=== PATIENT | male | born 1990 | race Caucasian/White ===

== ENCOUNTER 2024-02-01 23:20 | Emergency (ER) | payer MEDICAID, SELFPAY ==
[2024-02-01 23:23] VITALS: BP 136/84; PULSE 70; O2SAT 97; BMI 31.4
[2024-02-01 23:25] VITALS: BP 123/76; PULSE 68; RESP 18; TEMP 36.6; O2SAT 96
--- NOTE | 2024-02-01 23:36 | ED.GENADULT ---
HPI - General Adult General Chief complaint: Back Pain/Injury Stated complaint: LOW BACK INTO LEG PAIN WHILE WORKING PER EMS Time Seen by Provider: 02/01/24 23:27 Source: patient Mode of arrival: ambulatory Limitations: no limitations History of Present Illness ED Provider: Dr. Gladys Gray HPI narrative: patient comes to the emergency room complaining of lower back pain that radiates towards the left leg in a shock-like sensation with certain movements. Patient states it started today for the 1st time, while he was carrying heavy boxes at work. Patient states that he did not fall, did not have any injuries. patient denies urinary / fecal incontinence /retention Also, patient states that he feels short of breath, history of asthma. Patient states that for several years, he has been using his albuterol pump 4 to 5 times a day everyday. Patient has not taking any steroids daily, does not use any other medications. Patient states that he recently just moved from [place], started a new job yesterday, does not have a primary care physician Related Data Previous Rx's ?Medication ?Instructions ?Recorded albuterol sulfate 90 mcg/actuation 2 puff inhalation Q4-6H PRN 02/01/24 aerosol inhaler shortness of breath or wheezing #8.5 grams budesonide-formoterol HFA 80 2 puff inhalation BID #10.2 grams 02/01/24 mcg-4.5 mcg/actuation aerosol inhaler cyclobenzaprine 10 mg tablet 10 mg PO TID PRN muscle spasm #10 02/01/24 tabs ketorolac 10 mg tablet 10 mg PO . b.i.d. PRN pain #10 tabs 02/01/24 prednisone 50 mg tablet 50 mg PO DAILY #4 tabs 02/01/24 Allergies Allergy/AdvReac Type Severity Reaction Status Date / Time milk [MILK] Allergy Unknown LACTOSE Unverified 02/01/24 23:37 INTOLERANT shrimp [SHRIMP] Allergy Unknown SWELLING, Unverified 02/01/24 23:37 SOB CHOCOLATE Allergy Unknown GAS/BLOATIN Uncoded 02/01/24 23:37 G Review of Systems Review of Systems: Constitutional : No Weight loss, No Fever, No Chills, No Night Sweats, No Fatigue, No Malaise ENT/Mouth : No Hearing loss, No Ear Pain, No Nasal Congestion, No Sinus Pain, No Hoarseness, No sore throat, No Rhinorrhea, No Swallowing Difficulty Eyes: No Eye Pain, No Swelling, No Redness, No Foreign Body, No Discharge, No Vision Changes Cardiovascular : No Chest Pain, No SOB, No Dyspnea on Exertion, No Orthopnea, No Edema, No Palpitations Respiratory : No Cough, No Sputum, complaining of wheezing, No Smoke Exposure, No Dyspnea Gastrointestinal : No Nausea, No Vomiting, No Diarrhea, No Constipation, No abdominal Pain, No Hematochezia, No Melena Genitourinary : no irregular bleeding, No Dysuria, No Urinary Frequency, No Hematuria, No Urinary Incontinence, No Urgency, No Flank Pain, No Urinary Flow Changes, No Hesitancy Musculoskeletal : No joint pain, No Myalgias, No Joint Swelling, complaining of pain radiating from the lower back towards the right heel in a shock-like sensation Skin : No Skin Lesions, No rash Neuro : No Weakness, No Numbness, No Paresthesias, No Loss of Consciousness, No Dizziness, No Headache Psych : No Anxiety/Panic, No Depression, No SI/HI/AH/VH, No Social Issues, Heme/Lymph: No Bruising, No Bleeding,No Lymphadenopathy Endocrine : No Polyuria, No Polydipsia, No Temperature Intolerance COUNTS INCLUDE 234 BEDS AT THE [facility] Past Medical History Medical History (Updated 02/01/24 @ 23:49 by Gladys Gray MD) Asthma Physical Exam ED Vital Signs: Vital Signs - 24 hr 02/01/24 23:25 Temperature 97.9 F Pulse Rate 68 Respiratory Rate 18 Blood Pressure 123/76 Pulse Oximetry 96 Oxygen Delivery Method Room Air BMI result Body Mass Index 31.4 Const Other: Appearance: Alert. Oriented X3. No acute distress. Eyes: Pupils equal, round and reactive to light. ENT: Pharynx normal. Neck: Normal inspection. Neck supple. No lymph nodes noted. No crepitus CVS: Normal heart rate and rhythm. Pulses normal. Normal S1 and S2 Respiratory: No respiratory distress. bilateral wheezing, fairly good air movement, oxygen saturation 96% on room air, No rales Abdomen: Soft and nontender. No rigidity. No distention. back: no Pain to palpation in the thoracic or lumbar area. Positive straight leg raise test on the right only Skin: Skin warm and dry. Normal skin color. Normal skin turgor. Extremities: No lower extremity edema. No Lacerations. No Rash Neuro: Oriented X 3. No motor deficit. No sensory deficit. Moving all extremities. No slurred speech. CN 2 through 12 grossly intact Psych: calm, cooperative, normal affect Medical Decision Making Medical Decision Making MDM Narrative: - I discussed the physical exam with the patient, patient is wheezing at this time, patient will be receiving a breathing treatment with albuterol - patient receiving IM dexamethasone and ketorolac for sciatica. Discussed with the patient that the longterm treatment for sciatica is physical therapy. Patient will go to a walk-in clinic until he sees his primary care physician. - Patient uses his pump 4 to 5 times a day, 1 times at night, symptoms are daily. Patient's seems to have moderate persistent asthma. Discussed with the patient that we will start inhaled corticosteroids twice a day in addition to albuterol. Patient will need to follow-up with his new primary care physician and possibly pulmonology. Differential Diagnosis Differential Diagnoses: The differential diagnosis associated with the presentation includes ( Sciatica, herniated disc, musculoskeletal pain. persistent asthma, intermittent asthma) Admission/Observation Consideration of admission/observation: Escalation of care including admission/observation considered ( given patient's initial presentation, observation was considered) Critical Care Time Critical Care Time Critical Care Time: Yes Total Critical Care Time: 35 Attestation: I have personally provided critical care time. Time includes review of lab data, radiology results, discussion with consultants, and monitoring for potential decompensation. Intervention performed as documented. Discharge Plan Discharge Clinical Impression: Sciatica, Asthma Patient Disposition: Home, Self-Care Instructions: Asthma (ED), Sciatica (ED), Lower Back Exercises (ED) Additional Instructions: Please follow-up with your primary care physician tomorrow. If you have any worsening or new symptoms, please return to the emergency room or call 911 Prescriptions: New ketorolac 10 mg tablet 10 mg PO . b.i.d. PRN (Reason: pain) Qty: 10 0RF Rx Instructions: maximum total duration of 5 days from all oral, intranasal, or parenteral formulations cyclobenzaprine 10 mg tablet 10 mg PO TID PRN (Reason: muscle spasm) Qty: 10 0RF Rx Instructions: do not drive or operate machinery after taking this medication albuterol sulfate 90 mcg/actuation HFA aerosol inhaler 2 puff inhalation Q4-6H PRN (Reason: shortness of breath or wheezing) Qty: 8.5 2RF budesonide-formoterol 80-4.5 mcg/actuation HFA aerosol inhaler 2 puff inhalation BID Qty: 10.2 2RF prednisone 50 mg tablet 50 mg PO DAILY Qty: 4 0RF Referrals: Nikita Cody MD [Physician] - 02/02/24 Print Language: Malagasy
[2024-02-02] MEDS: dexAMETHasone sod phosphate 4 MG/ML VIAL 6 MG IM (00:01)
[2024-02-02] MEDS: Ketorolac Tromethamine 60 MG/2 ML VIAL IM (00:01)
[2024-02-02 00:02] VITALS: PULSE 110; RESP 18; O2SAT 97
[2024-02-02] MEDS: Albuterol Sulfate 7.5 MG, Albuterol Sulfate (0.083%) 2.5 MG 10 MG INHALE (00:02)
[2024-02-02 00:28] VITALS: BP 121/55; PULSE 82; RESP 20; TEMP 36.7; O2SAT 95
[2024-02-02 00:34] VITALS: BP 121/55; PULSE 82; RESP 20; TEMP 36.7; O2SAT 95
== END 2024-02-02 00:34 | disposition home or self-care (01) ==
PROVIDERS: Emergency Provider Emergency Medicine
DX: M54.40 Lumbago with sciatica, unspecified side (principal); J45.909 Unspecified asthma, uncomplicated; Z79.899 Other long term (current) drug therapy
CPT/HCPCS: 94640; 96372; 99284; J1100; J1885

== ENCOUNTER 2024-03-25 02:10 | Emergency (ER) | payer OTHER, SELFPAY ==
--- NOTE | 2024-03-25 | ECG_ITS ---
Test Reason : DYSPNEA Blood Pressure : / mmHG Vent. Rate : 077 BPM Atrial Rate : 077 BPM P-R Int : 154 ms QRS Dur : 102 ms QT Int : 376 ms P-R-T Axes : 070 056 041 degrees QTc Int : 425 ms Normal sinus rhythm Normal ECG When compared to the previous EKG of No significant changes seen Referred By: Generic ED Physician Electronically Signed By:NORMA DECKER MD
[2024-03-25 02:20] VITALS: BP 114/79; PULSE 83; RESP 20; TEMP 36.7; O2SAT 97; BMI 30.6
[2024-03-25] MEDS: Albuterol Sulfate 5 MG, Albuterol Sulfate (0.083%) 2.5 MG 7.5 MG INHALE (02:35)
[2024-03-25 02:37] VITALS: BP 114/79; PULSE 66
[2024-03-25] MEDS: EPINEPHrine 1 MG/ML VIAL 0.3 MG SUBCUT (02:37)
[2024-03-25 02:38] VITALS: PULSE 68; RESP 22; O2SAT 98
--- NOTE | 2024-03-25 02:38 | PC.NURSE ---
pt arrived to ed pulling his work cart, using exc muscles, audible wheezing, lungs sounds tight and pt working hard, pt able to answer one word questions at best. pt brought right back to room one and provider at bedside with resp.
[2024-03-25] MEDS: Magnesium Sulfate/H2O 2 GM/50 ML PIGGYBACK IV (02:39)
[2024-03-25] MEDS: methylPREDNISolone Sod Succ 125 MG/2 ML VIAL IVPUSH (02:41)
[2024-03-25 02:48] LABS: MANUAL DIFF FLAG NO
[2024-03-25 02:50] LABS: Basophils Absolute Auto 0.1 X10*3/uL (0.0-0.2); Basophils Percent Auto 0.6 % (0-2); Eosinophils Absolute Auto 0.1 X10*3/uL (0.0-0.4); Eosinophils Percent Auto 0.8 % (0-4); Hematocrit 44.8 % (42.0-52.0); Hemoglobin 15.3 g/dl (14.0-18.0); Imm Gran Abs Auto 0.07 X10*3/uL (0.00-0.03); Imm Gran Pct Auto 0.5 % (0.0-0.4); Lymphocytes Absolute Auto 1.7 X10*3/uL (1.2-4.9); Lymphocytes Percent Auto 11.8 % (20-40); Mean Corpuscular HGB Conc 34.2 g/dl (31.0-36.0); Mean Corpuscular Hemoglobin 28.4 pg (27.0-33.0); Mean Corpuscular Volume 83.1 fL (80.0-98.0); Mean Platelet Volume 9.2 fL (9.4-12.4); Monocytes Absolute Auto 0.9 X10*3/uL (0.1-1.2); Monocytes Percent Auto 6.1 % (2-11); Neutrophils Absolute Auto 11.6 x10*3/uL (2.0-8.3); Neutrophils Percent Auto 80.2 % (45-73); Platelet Count 370 X10*3/uL (160-400); Red Blood Count 5.39 X10*6/uL (4.60-5.80); White Blood Count 14.5 X10*3/uL (4.8-10.8)
[2024-03-25] MEDS: Albuterol Sulfate 2.5 MG, Albuterol/Iprat 2.5/0.5MG 3 ML 3 ML INHALE (02:53)
[2024-03-25 02:55] VITALS: PULSE 68; RESP 18; O2SAT 97
[2024-03-25 03:01] LABS: Anion Gap 16 (12-20); Blood Urea Nitrogen 18 mg/dL (9-16); Calcium 9.9 mg/dL (8.4-10.2); Carbon Dioxide 23 mmol/L (22-29); Chloride 106 mmol/L (96-108); Creatinine Clr Calc Pharmacy 120.5; Estimated Glomerular Filt Rate > 60; Glucose Random 90 mg/dL (60-115); Potassium 4.1 mmol/L (3.3-5.1); Sodium 141 mmol/L (135-145)
--- OUTSIDE RECORDS SUMMARY | 2024-03-25 03:04 | XMS_ITS | Continuity of Care Document ---
Author Organization [facility] ter Address [address] [place] [id number]- Care Team Providers Care Teaching Fellow Name Role Phone Ken SANCHEZ, Sergio Centeno Primary Care Physician Encounter [facility] Date(s): 08/22/19 - 08/23/[address] [address]- [facility] Encounter Diagnosis Asthma exacerbation(Final) - 08/22/19 Influenza B(Final) - 08/22/19 Discharge Disposition: A-D/C Home Attending Physician: Krysta Evans MD Admitting Physician: Tommy SILVA, Alvarez Castle Referring Physician: Not on Staff, Referring MD Allergies, Adverse Reactions, Alerts Substance Reaction Severity Status shellfish Active Peanuts Active Medications Aerochamber w/Mask (Large) See Instructions, # 2 units, Maintenance, For use with albuterol and flovent, 05/16/10 14:58:38 Start Date: 05/16/10 Status: Ordered albuterol 0.083% inhalation solution 3 mL = 2.5 mg, Neb, Every 4 hours, PRN Wheezing/Shortness of Breath, # 540 mL, 0 Refills, Maintenance, 08/23/19 14:00:00 EST, Inhalation Solution, [facility], 165, cm, 08/23/19 13:04:00EST, Height, 84.5, kg, 08/22/19 19:10:00 EST, Dry W... Start Date: 08/23/19 Status: Ordered albuterol CFC free 90 mcg/inh inhalation aerosol 2, puffs, Inhalation, Every 4 hours, PRN, # 1 each, Refills 1, Tot. Refills 1, Maintenance, 08/23/19 13:59:00 EST, Aerosol, Route to Pharmacy Electronically, [id number], [facility], 165, cm, 08/23/19 13:04:00 ES... Start Date: 08/23/19 Status: Ordered Flovent HFA 110 mcg/inh inhalation aerosol 2 puffs, Inhalation, 2 times a day, # 12 Gm, 0 Refills, Maintenance, 08/23/19 13:59:00 EST, Aerosol, [facility], 165, cm, 08/23/19 13:04:00 EST, Height, 84.5, kg, 08/22/19 19:10:00 EST,Dry Weight Start Date: 08/23/19 Status: Ordered Keppra 500 mg oral tablet 1 tablet = 500 mg, By Mouth, 2 times a day, # 60 tablet, 0 Refills, Maintenance, 08/23/19 13:59:00 EST, Tablet, [facility], 165, cm, 08/23/19 13:04:00 EST, Height, 84.5, kg, 08/22/19 19:10:00 EST, Dry Weight Start Date: 08/23/19 Status: Ordered oseltamivir 75 mg oral capsule 1 capsule = 75 mg, By Mouth, 2 times a day, for 4 days, # 8 capsule, 0 Refills, Acute 08/27/19 13:59:00 EST, 08/23/19 13:59:00 EST, Capsule, [facility], 165, cm, 08/23/19 13:04:00 EST, Height, 84.5, kg, 08/22/19 19:10:00 EST, Dry Weight Start Date: 08/23/19 Stop Date: 08/27/19 Status: Ordered predniSONE 20 mg oral tablet 2 tablet = 40 mg, By Mouth, Daily, for 5 days, # 10 tablet, 0 Refills, Acute 08/28/19 13:59:00 EST,08/23/19 13:59:00 EST, Tablet, [facility], 165, cm, 08/23/19 13:04:00 EST, Height, 84.5, kg, 08/22/19 19:10:00 EST, Dry Weight Start Date: 08/23/19 Stop Date: 08/28/19 Status: Ordered Problem List Condition Effective Dates Status Health Status Inform ant Asthma(Confirmed) Active Results Radiology Reports * Exam Date Time Procedure Performing Provider Status 08/22/19 8:03 AM Chest 2 Views Frontal and Lat Bindu Dee; Qian (Verified) Notes: (Chest 2 Views Frontal and Lat) Reason For Exam: Shortness of Breath RESULT: Chest 2 Views Frontal and Lat Chest 2 Views Frontal and Lat Reason: Shortness of Breath; Clinical Question(s): Pneumonia; Special Instructions: This is a protocol film and radiologist should call any findings to the Charge Nurse; Hx of Present Illness: SOB x 1 mos. w chest tightness.; Other Objective Findings: PWD, resps even non labored. sepakign in full se ntences. COMPARISON: None. FINDINGS: LINES AND TUBES: None. LUNGS AND PLEURA: Clear lungs. Normal pulmonary vascularity. No pleural effusion. No pneumothorax. HEART, MEDIASTINUM AND FIGUEROA: Heart is normal in size. Normal mediastinal and hilar contour. BONES AND SOFT TISSUES: No acute abnormality. IMPRESSION: No acute abnormality. WSN: [id number] Dictated By: Tania Oliveros MD Dictated Date/Time: 08/22/19 9:36 am Reviewed By: Tania Oliveros MD Signed By: Tania Oliveros MD Signed Date/Time: 08/22/19 9:36 am Transcribed By: SARA Transcribed Date/Time: 08/22/19 9:35 am Vital Signs Most recent to oldest [Reference Range]: 1 2 3 Height 165 cm (08/23/19 1:04 PM) 165 cm (08/23/19 7:44 AM) 165 cm (08/23/19 4:36 AM) Weight 84.5 kg (08/22/19 7:10 PM) 83 kg (08/22/19 7:54 AM) Oxygen Saturation [94-100 %] 95 % (08/23/19 1:04 PM) 99 % (08/23/19 7:44 AM) 96 % (08/23/19 4:36 AM) Pulse Rate [55-90 bpm] 95 bpm *H* (08/23/19 1:04 PM) 60 bpm (08/23/19 7:44 AM) 72 bpm (08/23/19 4:36 AM) Body Mass Index [18.5-24.99] 31.04 *>HHI* (08/22/19 7:10 PM) Blood Pressure [90-138/55-84 mm Hg] 120/79mm Hg (08/23/19 1:04 PM) 127/81mm Hg (08/23/19 7:44 AM) 142/85mm Hg *H* (08/23/19 4:36 AM) Respiratory Rate [16-30 br/min] 18 br/min (08/23/19 1:04 PM) 17 br/min (08/23/19 8:07 AM) 18 br/min (08/23/19 7:44 AM) Temperature [96.8-100.4 DegF] 97.9 DegF (08/23/19 1:04 PM) 98 DegF (08/23/19 7:44 AM) 98.5 DegF (08/23/19 4:36 AM) Liters per Minute 4 L/min (08/22/19 3:01 PM) 10 L/min (08/22/19 7:44 AM) Mode of Delivery (Oxygen) Room air (08/23/19 1:04 PM) Room air (08/23/19 7:44 AM) Room air (08/23/19 4:36 AM) Blood pressure sites Arm, right (08/23/19 1:04 PM) Arm, left (08/23/19 7:44 AM) Arm, right (08/23/19 4:36 AM) Temperature Route Oral (08/23/19 1:04 PM) Oral (08/23/19 7:44 AM) Oral (08/23/19 4:36 AM) Dry Weight 84.5 kg (08/22/19 7:10 PM) Social History Social History Type Response Smoking Status 10 or more cigarette s (1/2 pack or more)/day in last 30 days; Other: smokes 1/2 pack a day; entered on: 08/22/19 Sex
--- NOTE | 2024-03-25 04:34 | ED_ITS ---
HPI - SOB/Dyspnea General Chief Complaint: Dyspnea Stated Complaint: asthma attack cant breath Time Seen by Provider: 03/25/24 02:28 Source: patient Mode of arrival: ambulatory Limitations: no limitations History of Present Illness ED Provider: Dr. Vuong HPI Narrative: Patient with a history of asthma presents with sudden shortness of breath and wheezing. Related Data Previous Rx's ?Medication ?Instructions ?Recorded albuterol sulfate 90 mcg/actuation 2 puff inhalation Q4-6H PRN 02/01/24 aerosol inhaler shortness of breath or wheezing #8.5 grams budesonide-formoterol HFA 80 2 puff inhalation BID #10.2 grams 02/01/24 mcg-4.5 mcg/actuation aerosol inhaler cyclobenzaprine 10 mg tablet 10 mg PO TID PRN muscle spasm #10 02/01/24 tabs ketorolac 10 mg tablet 10 mg PO . b.i.d. PRN pain #10 tabs 02/01/24 prednisone 50 mg tablet 50 mg PO DAILY #4 tabs 02/01/24 albuterol sulfate 90 mcg/actuation 2 puff inhalation Q4-6H PRN 03/01/24 aerosol inhaler (Ventolin HFA) shortness of breath or wheezing #6.7 grams albuterol sulfate 90 mcg/actuation 2 puff inhalation Q4-6H PRN 03/25/24 aerosol inhaler shortness of breath or wheezing #8.5 grams prednisone 20 mg tablet 60 mg (3 x 20 mg) PO DAILY #12 tabs 03/25/24 Allergies Allergy/AdvReac Type Severity Reaction Status Date / Time milk [MILK] Allergy Unknown LACTOSE Verified 03/25/24 02:21 INTOLERANT shrimp [SHRIMP] Allergy Unknown SWELLING, Verified 03/25/24 02:21 SOB CHOCOLATE Allergy Unknown GAS/BLOATIN Uncoded 02/01/24 23:37 G Review of Systems 2 Review of Systems: Yes all other systems are reviewed and are negative Neurologic: Denies Sensory deficit (Neuro) PMF Past Medical History Medical History Asthma Social History Social History Alcohol intake: current Alcohol intake frequency: holidays/special occasions only Smoked in Last 30 Days: Yes Use of substances other than those prescribed or required for medical reasons: Yes Substance Use Type: Marijuana Substance Use Frequency: Daily Advance Directives: No Advance Directives Information Provided: Yes Physical Exam 2 Vital Signs: Vital Signs: Last Vital Signs Temp 98.1 F 03/25/24 02:20 Pulse 68 03/25/24 02:55 Resp 18 03/25/24 02:55 BP 114/79 03/25/24 02:37 Pulse Ox 97 03/25/24 02:20 O2 Del Method Room Air 03/25/24 02:20 BMI result Body Mass Index 30.6 Const: Other: acutely short of breath in extremis Nutritional Appearance: average body habitus Orientation/consciousness: oriented to person and patient oriented x3 Limitations: no limitations HEENT: Head: Yes normal to inspection Ears: external ears normal General nose exam: Normal external nose present Mouth: Normal oral and palatal mucosa present and oropharynx normal Throat: Yes posterior oropharynx normal Eyes: General: appearance normal, both eyes and all related structures Neck: Other: supple Neck: Yes normal visual inspection Chest: Chest palpation & inspection: normal inspection of the chest Resp: Other: tight barely moving air, wheezing Cardio: Jugular venous distension: no JVD Rate: regular rate Rhythm: r egular rhythm Heart sounds: S1 normal heart sound present and S2 normal heart sound present GI: Inspection: Yes normal to inspection Palpation (GI): Soft to palpation, nontender and No hepatosplenomegaly present Auscultation: normal bowel sounds : General: Yes no CVA tenderness Back/Spine/Pelvis: Back: no CVA tenderness Skin: General skin exam: no rashes or lesions noted Neuro: General: oriented to person and patient oriented x3 Cranial nerves: Yes CN's II-XII intact bilaterally Motor exam (neuro): 5/5 motor strength present throughout Sensory Exam: No Sensory deficit (Neuro) Extrem: General: Yes normal to inspection Psych: Appearance: grossly normal Course Reevaluation(s) Reevaluation #1: I spent 40 minutes of critical care, with interventions, assessments, speaking to patient, consultants, and family. Patient needed epi, magnesium as well as nebs and solumedrol Time: 04:38 Reevaluation #2: Lungs clear talking in full sentences will dc home Time: 04:38 Medications Administered Discontinued Medications Generic Name Dose Route Start Last Admin Trade Name Freq PRN Reason Stop Dose Admin Albuterol Sulfate 5 mg/ 7.5 mg 03/25/24 02:34 03/25/24 02:35 Albuterol Sulfate 2.5 mg INHALE 03/25/24 02:35 7.5 mg ONCE ONE Administration Albuterol Sulfate 2.5 mg/ 0 mg 03/25/24 02:49 03/25/24 02:53 Albuterol/Ipratropium 3 ml INHALE 03/25/24 02:50 5 dose ONCE ONE Administration Epinephrine 0.3 mg 03/25/24 02:31 03/25/24 02:37 Epinephrine 1 Mg/Ml Vial SUBCUT 03/25/24 02:32 0.3 mg STAT STA Administration Magnesium Sulfate 2 gm in 50 mls @ 25 mls/hr 03/25/24 02:31 03/25/24 04:42 Magnesium Sulfate/H2o IV 03/25/24 04:30 Infused ONCE ONE Infusion Methylprednisolone Sodium Succinate 125 mg 03/25/24 02:31 03/25/24 02:41 Methylprednisolone Sod Succ 125 Mg/2 Ml Vial IVPUSH 03/25/24 02:32 125 mg ONCE ONE Administration Medical Decision Making Differential Diagnosis Differential Diagnoses: The differential diagnosis associated with the presentation includes (status asthmaticus, asthma exacerbation, respiratory failure) Admission/Observation Consideration of admission/observation: Escalation of care including admission/observation considered (upon arrival admission was considered) Lab Data 03/25/24 02:42 03/25/24 02:42 Labs: Lab Results 03/25/24 Range/Units 02:42 WBC 14.5 H (4.8-10.8) X10*3/uL RBC 5.39 (4.60-5.80) X10*6/uL Hgb 15.3 (14.0-18.0) g/dl Hct 44.8 (42.0-52.0) % MCV 83.1 (80.0-98.0) fL MCH 28.4 (27.0-33.0) pg MCHC 34.2 (31.0-36.0) g/dl RDW 14.0 (11.0-16.0) % Plt Count 370 (160-400) X10*3/uL MPV 9.2 L (9.4-12.4) fL Immature Gran % (Auto) 0.5 H (0.0-0.4) % Neut % (Auto) 80.2 H (45-73) % Lymph % (Auto) 11.8 L (20-40) % [place] % (Auto) 6.1 (2-11) % Eos % (Auto) 0.8 (0-4) % Baso % (Auto) 0.6 (0-2) % Lymph # (Auto) 1.7 (1.2-4.9) X10*3/uL [place] # (Auto) 0.9 (0.1-1.2) X10*3/uL Eos # (Auto) 0.1 (0.0-0.4) X10*3/uL Baso # (Auto) 0.1 (0.0-0.2) X10*3/uL Abs Immat Gran (auto) 0.07 H (0.00-0.03) X10*3/uL Absolute Neuts (auto) 11.6 H (2.0-8.3) x10*3/uL Absolute Nucleated RBC 0.000 (0.0-0.012) X10*3/uL Nucleated RBC % (auto) 0.0 (0.0-0.2) /100WBC Sodium 141 (135-145) mmol/L Potassium 4.1 (3.3-5.1) mmol/L Chloride 106 (96-108) mmol/L Carbon Dioxide 23 (22-29) mmol/L Anion Gap 16 (12-20) BUN 18 H (9-16) mg/dL Creatinine 0.85 (0.5-1.4) mg/dL Estim Creat Clear Calc 120.5 Estimated GFR > 60 Random Glucose 90 (60-115) mg/dL Calcium 9.9 (8.4-10.2) mg/dL Prescription Management I considered prescription management with: Antibiotic (no evidence of pneumonia) Chronic Conditions Patient?s care impacted by: Other (asthma) Social Determinants Patient?s care significantly limited by Social Determinants of Health including: Low income Discharge Plan Discharge Clinical Impression: Asthma with exacerbation Patient Disposition: Home, Self-Care Instructions: Asthma (ED), Wheezing (ED) Prescriptions: New prednisone 20 mg tablet 60 mg PO DAILY Qty: 12 0RF albuterol sulfate 90 mcg/actuation HFA aerosol inhaler 2 puff inhalation Q4-6H PRN (Reason: shortness of breath or wheezing) Qty: 8.5 0RF No Action ketorolac 10 mg tablet 10 mg PO . b.i.d. PRN (Reason: pain) Qty: 10 0RF Rx Instructions: maximum total duration of 5 days from all oral, intranasal, or parenteral formulations cyclobenzaprine 10 mg tablet 10 mg PO TID PRN (Reason: muscle spasm) Qty: 10 0RF Rx Instructions: do not drive or operate machinery after taking this medication albuterol sulfate 90 mcg/actuation HFA aerosol inhaler 2 puff inhalation Q4-6H PRN (Reason: shortness of breath or wheezing) Qty: 8.5 2RF budesonide-formoterol 80-4.5 mcg/actuation HFA aerosol inhaler 2 puff inhalation BID Qty: 10.2 2RF prednisone 50 mg tablet 50 mg PO DAILY Qty: 4 0RF albuterol sulfate [Ventolin HFA] 90 mcg/actuation HFA aerosol inhaler 2 puff inhalation Q4-6H PRN (Reason: shortness of breath or wheezing) Qty: 6.7 0RF Referrals: Physician,Unknown J [Primary Care Provider] - 3 days Print Language: [place] Islander
[2024-03-25 04:58] VITALS: BP 127/66; PULSE 86; RESP 20; TEMP 36.9; O2SAT 95
== END 2024-03-25 05:00 | disposition home or self-care (01) ==
PROVIDERS: Emergency Provider Emergency Medicine
DX: J45.901 Unspecified asthma with (acute) exacerbation (principal); R06.02 Shortness of breath
CPT/HCPCS: 36415; 80048; 85025; 93005; 94640; 96365; 96366; 96372; 96375; 99285; J0171; J2919; J3475

== ENCOUNTER → 2024-03-25 02:26 | Outpatient (BNV) | payer OTHER, SELFPAY | PROVIDERS: Emergency Provider Emergency Medicine; Visit Provider Internal Medicine Cardiovascular Disease | DX: R06.09 Other forms of dyspnea (principal) | CPT/HCPCS: 93010 ==

== ENCOUNTER 2024-04-03 23:37 | Emergency (ER) | payer OTHER, SELFPAY ==
--- NOTE | ~2024-04-03 | CT_ITS ---
CT head/brain wo IV con CLINICAL INFORMATION: Reason for Exam acute change in mental status, found down COMPARISON: No prior CT scan available for comparison. TECHNIQUE: Department standard protocol. This CT examination was performed using dose optimization techniques as appropriate, variously including the following: *Automated exposure control *Adjustment of mA and/or kV according to patient size (this includes techniques or standardized protocols for targeted exams where dose is matched to indication/reason for exam; i.e. extremities or head) *Use of iterative reconstruction technique DLP: 1494 mGy-cm FINDINGS: Exam limited by motion artifacts CEREBRAL HEMISPHERES: Subtle Subcortical low-attenuation in the right frontoparietal region may be caused by artifacts motion, cannot entirely rule out the possibility of underlying brain injury. Refer image 17 series 10, no intracranial bleed. BRAIN PARENCHYMA: Normal [place]-white matter differentiation. SUBDURAL SPACE: No bleed. BASAL GANGLIA AND PINEAL GLAND: Unremarkable VENTRICLES: Symmetric and normal in size. CEREBELLUM AND BRAINSTEM: No space-occupying mass, hemorrhage or acute infarct. CEREBELLOPONTINE ANGLES: No lesion found. ORBITS: No intraorbital mass. VESSELS: Unremarkable SKULL BASE: Unremarkable INCLUDED SINUSES AT SKULL BASE: Clear SKULL AND SKIN: No fracture or bone lesion found. CT/CT head/brain wo IV con IMPRESSION: 1. Exam limited by motion artifacts. 2. Subtle Subcortical low-attenuation in the right frontoparietal region may be caused by motion artifacts, however cannot entirely rule out the possibility of underlying brain injury. If patient remain symptomatic consider correlation with follow-up MRI or CT scan in 24 hours.. 3. No intracranial bleed.
[2024-04-03 23:45] VITALS: BP 119/78; PULSE 77; RESP 20; O2SAT 95; BMI 29.0
[2024-04-03 23:50] VITALS: PULSE 77; RESP 16; O2SAT 95
[2024-04-03] MEDS: LORazepam 2 MG/ML VIAL IM (23:50)
--- NOTE | 2024-04-03 23:50 | PC.NURSE ---
Pt arrives via EMS in soft restraints. Pt is violent, combative, uncooperative, yelling profanities, and attempting to hit staff members. Pt Medicated as per MAR and tolerated well. Unable to obtain full set of vitals as pt self removes equipment. Monitoring is ongoing.
[2024-04-04] VITALS (20 sets, daily range): BP systolic 105–153; BP diastolic 64–98; PULSE 61–94; RESP 12–20; TEMP 37.2; O2SAT 92–99
--- NOTE | 2024-04-04 00:05 | PC.NURSE ---
Pt is now sleeping. Placed on monitor and changed over by security. No apparent distress noted. Monitoring is ongoing.
--- NOTE | 2024-04-04 02:06 | ED_ITS ---
HPI - Alcohol General Chief Complaint: ETOH/Substance Use Stated Complaint: etoh, combative Time Seen by Provider: 04/03/24 23:47 Source: EMS Mode of arrival: EMS Limitations: altered mental status History of Present Illness ED Provider: eusebia ANDRADE narrative: Patient was brought by EMS been found intoxicated outside was very combative when EMS approached him no signs of injury no seizures smell of alcohol patient is very intoxicated and not cooperative Related Data Previous Rx's ?Medication ?Instructions ?Recorded albuterol sulfate 90 mcg/actuation 2 puff inhalation Q4-6H PRN 02/01/24 aerosol inhaler shortness of breath or wheezing #8.5 grams budesonide-formoterol HFA 80 2 puff inhalation BID #10.2 grams 02/01/24 mcg-4.5 mcg/actuation aerosol inhaler cyclobenzaprine 10 mg tablet 10 mg PO TID PRN muscle spasm #10 02/01/24 tabs ketorolac 10 mg tablet 10 mg PO . b.i.d. PRN pain #10 tabs 02/01/24 prednisone 50 mg tablet 50 mg PO DAILY #4 tabs 02/01/24 albuterol sulfate 90 mcg/actuation 2 puff inhalation Q4-6H PRN 03/01/24 aerosol inhaler (Ventolin HFA) shortness of breath or wheezing #6.7 grams albuterol sulfate 90 mcg/actuation 2 puff inhalation Q4-6H PRN 03/25/24 aerosol inhaler shortness of breath or wheezing #8.5 grams prednisone 20 mg tablet 60 mg (3 x 20 mg) PO DAILY #12 tabs 03/25/24 Allergies Allergy/AdvReac Type Severity Reaction Status Date / Time milk [MILK] Allergy Unknown LACTOSE Verified 04/03/24 23:47 INTOLERANT shrimp [SHRIMP] Allergy Unknown SWELLING, Verified 04/03/24 23:47 SOB CHOCOLATE Allergy Unknown GAS/BLOATIN Uncoded 04/03/24 23:47 G Review of Systems 2 Review of Systems: Yes Unobtainable due to mental status PMFSH Past Medical History Medical History Asthma Social History Social History Alcohol intake: current Alcohol intake frequency: holidays/special occasions only Substance Use Type: Marijuana Advance Directives: No Advance Directives Information Provided: No Do you have a plan to hurt others: No Plan Physical Exam ED Vital Signs: Vital Signs - 24 hr 04/03/24 23:45 04/03/24 23:50 04/04/24 00:05 Temperature Pulse Rate 77 77 68 Respiratory Rate 20 16 15 Blood Pressure 119/78 Pulse Oximetry 95 95 94 Oxygen Delivery Method Room Air Room Air 04/04/24 00:20 04/04/24 00:35 04/04/24 00:50 Temperature Pulse Rate 66 68 61 Respiratory Rate 15 17 16 Blood Pressure Pulse Oximetry 96 92 94 Oxygen Delivery Method Room Air Room Air Room Air 04/04/24 01:05 04/04/24 01:20 04/04/24 02:10 Temperature Pulse Rate 67 67 74 Respiratory Rate 17 17 20 Blood Pressure 108/73 114/78 130/91 H Pulse Oximetry 95 95 97 Oxygen Delivery Method Room Air Room Air Room Air 04/04/24 02:25 04/04/24 02:40 04/04/24 02:55 Temperature Pulse Rate 92 94 82 Respiratory Rate 19 17 16 Blood Pressure 137/98 H 126/89 Pulse Oximetry 96 97 Oxygen Delivery Method Room Air Room Air 04/04/24 03:10 04/04/24 03:25 04/04/24 03:41 Temperature Pulse Rate 83 81 73 Respiratory Rate 13 16 14 Blood Pressure 137/84 123/74 113/74 Pulse Oximetry 98 96 99 Oxygen Delivery Method Room Air Room Air Room Air 04/04/24 06:40 Temperature 99.0 F Pulse Rate 81 Respiratory Rate 12 Blood Pressure 119/91 H Pulse Oximetry 96 Oxygen Delivery Method Room Air BMI result Body Mass Index 29.0 Appearance: Agitated Eyes: PERRL ENT: Pharynx normal. Oral Mucosa moist atraumatic normocephalic Neck: Normal inspection. Neck supple. CVS: Normal heart rate and rhythm. Pulses normal. Respiratory: No respiratory distress. Equal air entry bilateral, no wheezing/rales/rhonchi Abdomen: Soft and nontender. Bowel sounds are present, no mass palpable, no CVA tenderness Skin: Skin warm and dry. Normal skin color. Normal skin turgor. Extremities: No lower extremity edema. No calf tenderness Neuro: Intoxicated combative Medical Decision Making Medical Decision Making MDM Narrative: Patient alcoholic intoxication with cocaine abuse very combative on arrival requiring multiple doses of benzos was given also Haldol and ketamine patient is still agitated will give IV worse patient restrained to avoid injury to himself patient is signed out to Dr. Lopez pending disposition Differential Diagnosis Differential Diagnoses: The differential diagnosis associated with the presentation includes Metabolic encephalopathy/cocaine induced psychosis/alcohol intoxication Admission/Observation Consideration of admission/observation: Escalation of care including admission/observation considered Lab Data [facility] Lab Attestation statement: I reviewed the patient's lab results. 04/04/24 02:38 04/04/24 02:38 Labs: Lab Results 04/04/24 04/04/24 04/04/24 Range/Units 02:38 02:38 04:10 WBC 13.7 H (4.8-10.8) X10*3/uL RBC 5.53 (4.60-5.80) X10*6/uL Hgb 15.4 (14.0-18.0) g/dl Hct 46.8 (42.0-52.0) % MCV 84.6 (80.0-98.0) fL MCH 27.8 (27.0-33.0) pg MCHC 32.9 (31.0-36.0) g/dl RDW 14.1 (11.0-16.0) % Plt Count 356 (160-400) X10*3/uL MPV 8.9 L (9.4-12.4) fL Immature Gran % (Auto) 0.7 H (0.0-0.4) % Neut % (Auto) 84.9 H (45-73) % Lymph % (Auto) 10.8 L (20-40) % [place] % (Auto) 3.1 (2-11) % Eos % (Auto) 0.1 (0-4) % Baso % (Auto) 0.4 (0-2) % Lymph # (Auto) 1.5 (1.2-4.9) X10*3/uL [place] # (Auto) 0.4 (0.1-1.2) X10*3/uL Eos # (Auto) 0.0 (0.0-0.4) X10*3/uL Baso # (Auto) 0.1 (0.0-0.2) X10*3/uL Abs Immat Gran (auto) 0.10 H (0.00-0.03) X10*3/uL Absolute Neuts (auto) 11.6 H (2.0-8.3) x10*3/uL Absolute Nucleated RBC 0.000 (0.0-0.012) X10*3/uL Nucleated RBC % (auto) 0.0 (0.0-0.2) /100WBC Sodium 145 (135-145) mmol/L Potassium 4.0 (3.3-5.1) mmol/L Chloride 110 H (96-108) mmol/L Carbon Dioxide 21 L (22-29) mmol/L Anion Gap 18 (12-20) BUN 12 (9-16) mg/dL Creatinine 0.76 (0.5-1.4) mg/dL Estim Creat Clear Calc 140.5 Estimated GFR > 60 Random Glucose 105 (60-115) mg/dL Calcium 10.0 (8.4-10.2) mg/dL Magnesium 2.4 (1.6-2.6) mg/dL Total Bilirubin 0.2 (0.0-1.0) mg/dL AST 21 (5-37) U/L ALT 23 (0-40) U/L Alkaline Phosphatase 81 (39-117) U/L Total Creatine Kinase 237 H Cancelled (38-174) U/L Total Protein 8.1 H (6.5-8.0) g/dL Albumin 5.0 (3.5-5.0) g/dL Urine Opiates Screen Not Detected (Not Detect) Ur Buprenorphine Scrn Not Detected (Not Detect) ng/mL Ur Oxycodone Screen Not Detected (Not Detect) ng/mL Urine Methadone Screen Not Detected (Not Detect) ng/mL Urine Fentanyl Screen Not Detected (Not Detect) Ur Barbiturates Screen Not Detected (Not Detect) Ur Phencyclidine Scrn Not Detected (Not Detect) Ur Amphetamines Screen Not Detected (Not Detect) U Benzodiazepines Scrn Not Detected (Not Detect) Urine Cocaine Screen POSITIVE H (Not Detect) U Marijuana (THC) Screen POSITIVE H (Not Detect) Ethyl Alcohol 266 mg/dL External Record Review External record reviewed: Inpatient record Medications Administered Discontinued Medications Generic Name Dose Route Start Last Admin Trade Name Freq PRN Reason Stop Dose Admin Haloperidol Lactate 2 mg 04/04/24 06:45 04/04/24 06:50 Haloperidol Lactate 5 Mg/Ml Vial IVPUSH 04/04/24 06:46 2 mg STAT STA Administration Sodium Chloride 1,000 mls @ 999 mls/hr 04/04/24 02:07 04/04/24 04:25 Ns IV 04/04/24 03:07 Infused .Q1H1M ONE Infusion Ketamine HCl 200 mg 04/04/24 02:20 04/04/24 02:28 Ketamine Hcl 500 Mg/5 Ml Vial IM 04/04/24 02:21 200 mg ONCE ONE Administration Ketamine HCl 200 mg 04/04/24 04:18 04/04/24 04:28 Ketamine Hcl 500 Mg/5 Ml Vial IM 04/04/24 04:19 200 mg ONCE ONE Administration Lorazepam 2 mg 04/03/24 23:48 04/03/24 23:50 Lorazepam 2 Mg/Ml Vial IM 04/03/24 23:49 2 mg ONCE ONE Administration Lorazepam 2 mg 04/04/24 02:07 04/04/24 02:10 Lorazepam 2 Mg/Ml Vial IM 04/04/24 02:08 2 mg ONCE ONE Administration Lorazepam 2 mg 04/04/24 06:44 04/04/24 06:50 Lorazepam 2 Mg/Ml Vial IVPUSH 04/04/24 06:45 2 mg ONCE ONE Administration Midazolam HCl 2 mg 04/04/24 07:07 04/04/24 07:17 Midazolam Hcl/Pf 2 Mg/2 Ml Vial IVPUSH 04/04/24 07:08 2 mg ONCE ONE Administration Critical Care Time Critical Care Time Critical Care Time: Yes Total Critical Care Time: 75 Attestation: The patient was critically ill with a high probability of imminent or life threatening deterioration. I spent greater than 80???minutes of discontinuous time evaluating the patient,delivering critical care at the bedside, discussing and evaluating pertinent data with consultants. Critical care time does not include time spent performing separately billable procedures or teaching. Total time spent performing critical care wa75 ???minutes. Discharge Plan Discharge Clinical Impression: Alcoholic intoxication, Cocaine-induced psychotic disorder, Acute metabolic encephalopathy Patient Disposition: Still a Patient Prescriptions: No Action prednisone 20 mg tablet 60 mg PO DAILY Qty: 12 0RF albuterol sulfate 90 mcg/actuation HFA aerosol inhaler 2 puff inhalation Q4-6H PRN (Reason: shortness of breath or wheezing) Qty: 8.5 0RF ketorolac 10 mg tablet 10 mg PO . b.i.d. PRN (Reason: pain) Qty: 10 0RF Rx Instructions: maximum total duration of 5 days from all oral, intranasal, or parenteral formulations cyclobenzaprine 10 mg tablet 10 mg PO TID PRN (Reason: muscle spasm) Qty: 10 0RF Rx Instructions: do not drive or operate machinery after taking this medication albuterol sulfate 90 mcg/actuation HFA aerosol inhaler 2 puff inhalation Q4-6H PRN (Reason: shortness of breath or wheezing) Qty: 8.5 2RF budesonide-formoterol 80-4.5 mcg/actuation HFA aerosol inhaler 2 puff inhalation BID Qty: 10.2 2RF prednisone 50 mg tablet 50 mg PO DAILY Qty: 4 0RF albuterol sulfate [Ventolin HFA] 90 mcg/actuation HFA aerosol inhaler 2 puff inhalation Q4-6H PRN (Reason: shortness of breath or wheezing) Qty: 6.7 0RF Print Language: Italian
[2024-04-04] MEDS: LORazepam 2 MG/ML VIAL IM (02:10)
--- NOTE | 2024-04-04 02:10 | PC.NURSE ---
Pt was sleeping and awaken yelling, aggressive, combative, attempting to leave, aggressive towards staff, and yelling profanity. Uncooperative and unredirectable. Medically restraint as ordered. Monitoring is ongoing.
--- NOTE | 2024-04-04 02:20 | PC.NURSE ---
Pt continues with aggressive/combative behavior, attempting to grab staff members. Pt physically restraint in all extremities for safety.
[2024-04-04] MEDS: Ketamine HCl 500 MG/5 ML VIAL 200 MG IM ×2 (02:28→04:28)
--- NOTE | 2024-04-04 02:40 | PC.NURSE ---
Pt continues to be physcially restrained. Exhibiting aggressive/combative behavior. Attempting to bite restraint straps. Restraints continue at this time. Monitoring is ongoing.
[2024-04-04 02:43] LABS: MANUAL DIFF FLAG NO
[2024-04-04 02:44] LABS: Basophils Absolute Auto 0.1 X10*3/uL (0.0-0.2); Basophils Percent Auto 0.4 % (0-2); Eosinophils Percent Auto 0.1 % (0-4); Hematocrit 46.8 % (42.0-52.0); Hemoglobin 15.4 g/dl (14.0-18.0); Imm Gran Pct Auto 0.7 % (0.0-0.4); Lymphocytes Absolute Auto 1.5 X10*3/uL (1.2-4.9); Lymphocytes Percent Auto 10.8 % (20-40); Mean Corpuscular HGB Conc 32.9 g/dl (31.0-36.0); Mean Corpuscular Hemoglobin 27.8 pg (27.0-33.0); Mean Corpuscular Volume 84.6 fL (80.0-98.0); Mean Platelet Volume 8.9 fL (9.4-12.4); Monocytes Absolute Auto 0.4 X10*3/uL (0.1-1.2); Monocytes Percent Auto 3.1 % (2-11); Neutrophils Absolute Auto 11.6 x10*3/uL (2.0-8.3); Neutrophils Percent Auto 84.9 % (45-73); Platelet Count 356 X10*3/uL (160-400); Red Blood Count 5.53 X10*6/uL (4.60-5.80); Red Cell Distribution Width 14.1 % (11.0-16.0); White Blood Count 13.7 X10*3/uL (4.8-10.8)
[2024-04-04] MEDS: 0.9 % Sodium Chloride 1,000 ML 999 ML IV (02:44)
--- NOTE | 2024-04-04 02:45 | PC.NURSE ---
Pt noted to be sleeping. No safety concerns at this time. All restraints removed. +CMS, radial pulses present. No injuries noted. Monitoring is ongoing.
--- NOTE | 2024-04-04 02:55 | PC.NURSE ---
Pt continues sleeping. No apparent distress noted. Monitoring is ongoing.
[2024-04-04 03:02] LABS: Alanine Aminotransferase 23 U/L (0-40); Alkaline Phosphatase 81 U/L (39-117); Anion Gap 18 (12-20); Aspartate Amino Transferase 21 U/L (5-37); Bilirubin Total 0.2 mg/dL (0.0-1.0); Blood Urea Nitrogen 12 mg/dL (9-16); Carbon Dioxide 21 mmol/L (22-29); Chloride 110 mmol/L (96-108); Creatinine Clr Calc Pharmacy 140.5; Estimated Glomerular Filt Rate > 60; Ethanol 266 mg/dL; Glucose Random 105 mg/dL (60-115); Magnesium 2.4 mg/dL (1.6-2.6); Sodium 145 mmol/L (135-145); Total Protein 8.1 g/dL (6.5-8.0)
[2024-04-04 04:26] LABS: Amphetamine Screen Urine Not Detected (Not Detect); Barbiturates, Urine Not Detected (Not Detect); Benzodiazepines Screen Urine Not Detected (Not Detect); Buprenorphine Scr Not Detected (Not Detect); Cannabinoid Screen Urine POSITIVE (Not Detect); Cocaine Screen Urine POSITIVE (Not Detect); Fentanyl, urine Not Detected (Not Detect); Methadone Screen, Urine Not Detected (Not Detect); Opiate Screen Urine Not Detected (Not Detect); Oxycodone Screen Urine Not Detected (Not Detect); Phencyclidine Screen Urine Not Detected (Not Detect)
--- NOTE | 2024-04-04 06:35 | PC.NURSE ---
Unable to obtain vitals as pt is agitated and combative.
[2024-04-04] MEDS: LORazepam 2 MG/ML VIAL IVPUSH (06:50)
[2024-04-04] MEDS: Haloperidol Lactate 5 MG/ML VIAL 2 MG IVPUSH (06:50)
[2024-04-04] MEDS: Midazolam HCl/PF 2 MG/2 ML VIAL IVPUSH (07:17)
--- NOTE | 2024-04-04 08:26 | PC.NURSE ---
Incontinence care provided. Restraints to MEAGHAN feet removed. Pt. sleeping and cooperative at this time.
--- NOTE | 2024-04-04 08:40 | PC.NURSE ---
Pt. out of all restraints at this time. Remains calm, sleeping. VSS
[2024-04-04] MEDS: 0.9 % Sodium Chloride 1,000 ML 125 ML IVCONT (08:46)
== END 2024-04-04 14:36 | disposition home or self-care (01) ==
PROVIDERS: Emergency Provider Internal Medicine
DX: F10.220 Alcohol dependence with intoxication, uncomplicated (principal); Y90.8 Blood alcohol level of 240 mg/100 ml or more; F14.159 Cocaine abuse with cocaine-induced psychotic disorder, unspecified; G93.40 Encephalopathy, unspecified; R45.1 Restlessness and agitation; J45.909 Unspecified asthma, uncomplicated; Z79.899 Other long term (current) drug therapy
CPT/HCPCS: 36415; 70450; 80053; 80307; 82550; 83735; 85025; 96361; 96372; 96374; 96375; 99285; J1630; J2060; J2250

== ENCOUNTER 2024-07-22 04:35 | Emergency (ER) | payer MEDICAID, SELFPAY ==
--- NOTE | ~2024-07-22 | XR_ITS ---
EXAMINATION: XR CHEST CLINICAL INFORMATION: chest pain COMPARISON: September 09, 2016. TECHNIQUE: Frontal view of the chest was obtained. FINDINGS: No significant abnormality is noted involving the heart, lungs, mediastinum, bony thorax or soft tissues. XR/XR chest 1V IMPRESSION: Unremarkable examination. Electronically signed by: Sanchez Contreras MD 07/22/2024 06:45 AM [facility]
--- NOTE | 2024-07-22 04:41 | ECG_ITS ---
Test Reason : SOB Blood Pressure : / mmHG Vent. Rate : 090 BPM Atrial Rate : 090 BPM P-R Int : 164 ms QRS Dur : 106 ms QT Int : 362 ms P-R-T Axes : 076 069 041 degrees QTc Int : 442 ms Normal sinus rhythm Normal ECG When compared with ECG of 25-MAR-2024 02:26, No significant change was found Referred By: Generic ED Physician Electronically Signed By:Buzz Mccormick
[2024-07-22 04:48] VITALS: BMI 30.7
--- NOTE | 2024-07-22 04:49 | ED_ITS ---
HPI - SOB/Dyspnea General Chief Complaint: Dyspnea Stated Complaint: Asmtha attack Time Seen by Provider: 07/22/24 04:49 Source: patient Mode of arrival: ambulatory Limitations: no limitations History of Present Illness ED Provider: HPI Narrative: Patient's history of asthma been feeling short of breath since yesterday getting worse today use nebulizer at home without much relief no fever no chills coughing mostly dry Related Data Previous Rx's ?Medication ?Instructions ?Recorded albuterol sulfate 90 mcg/actuation 2 puff inhalation Q4-6H PRN 02/01/24 aerosol inhaler shortness of breath or wheezing #8.5 grams budesonide-formoterol HFA 80 2 puff inhalation BID #10.2 grams 02/01/24 mcg-4.5 mcg/actuation aerosol inhaler cyclobenzaprine 10 mg tablet 10 mg PO TID PRN muscle spasm #10 02/01/24 tabs ketorolac 10 mg tablet 10 mg PO . b.i.d. PRN pain #10 tabs 02/01/24 prednisone 50 mg tablet 50 mg PO DAILY #4 tabs 02/01/24 albuterol sulfate 90 mcg/actuation 2 puff inhalation Q4-6H PRN 03/01/24 aerosol inhaler (Ventolin HFA) shortness of breath or wheezing #6.7 grams albuterol sulfate 90 mcg/actuation 2 puff inhalation Q4-6H PRN 03/25/24 aerosol inhaler shortness of breath or wheezing #8.5 grams prednisone 20 mg tablet 60 mg (3 x 20 mg) PO DAILY #12 tabs 03/25/24 albuterol sulfate 90 mcg/actuation 2 puff inhalation Q6H PRN 07/22/24 aerosol inhaler shortness of breath or wheezing #8.5 grams cefuroxime axetil 500 mg tablet 500 mg PO BID 7 days #14 tabs 07/22/24 prednisone 20 mg tablet 40 mg (2 x 20 mg) PO DAILY #10 tabs 07/22/24 Allergies Allergy/AdvReac Type Severity Reaction Status Date / Time milk [MILK] Allergy Unknown LACTOSE Verified 07/22/24 04:49 INTOLERANT shrimp [SHRIMP] Allergy Unknown SWELLING, Verified 07/22/24 04:49 SOB CHOCOLATE Allergy Unknown GAS/BLOATIN Uncoded 07/22/24 04:49 G Review of Systems 2 Review of Systems: Yes all other systems are reviewed and are negative [facility] Past Medical History Medical History Asthma Social History Social History Alcohol intake: current Alcohol intake frequency: holidays/special occasions only Smoked in Last 30 Days: Yes Use of substances other than those prescribed or required for medical reasons: No Substance Use Type: Marijuana Advance Directives: No Advance Directives Information Provided: Yes Do you have a plan to hurt others: No Plan Physical Exam 2 Vital Signs: Vital Signs: Last Vital Signs Temp 97.9 F 07/22/24 07:10 Pulse 77 07/22/24 07:10 Resp 20 07/22/24 07:10 BP 0/0 L 07/22/24 07:10 Pulse Ox 98 07/22/24 07:10 O2 Del Method Room Air 07/22/24 05:42 BMI result Body Mass Index 30.7 Appearance: Alert. Oriented X3. No acute distress. Eyes: No pallor or icterus ENT: Pharynx slight erythema Oral Mucosa moist Neck: Normal inspection. Neck supple. CVS: Normal heart rate and rhythm. Pulses normal. Respiratory: No respiratory distress. Equal air entry bilateral, bilateral wheeze no crackles Abdomen: Soft and nontender. Bowel sounds are present, no mass palpable, no CVA tenderness Skin: Skin warm and dry. Normal skin color. Normal skin turgor. Extremities: No lower extremity edema. No calf tenderness Neuro: Oriented X 3. No motor deficit. No sensory deficit.No cerebellar signs , cranial nerves II-XII intact Medications Administered Discontinued Medications Generic Name Dose Route Start Last Admin Trade Name Freq PRN Reason Stop Dose Admin Albuterol Sulfate 2 puff 07/22/24 06:36 07/22/24 06:51 Albuterol Sulfate 90 Mcg 8 Gm Inhaler INHALE 07/22/24 06:37 2 puff ONCE ONE Administration Cefuroxime Axetil 500 mg 07/22/24 06:36 07/22/24 07:07 Cefuroxime Axetil 500 Mg Tablet PO 07/22/24 06:37 500 mg ONCE ONE Administration Albuterol Sulfate 5 mg/ 0 mg 07/22/24 04:51 07/22/24 05:01 Albuterol/Ipratropium 3 ml INHALE 07/22/24 04:52 7.5 each ONCE ONE Administration Diphenhydramine HCl 50 mg 07/22/24 05:29 07/22/24 05:49 Diphenhydramine Hcl 50 Mg/Ml Vial IVPUSH 07/22/24 05:30 50 mg ONCE ONE Administration Magnesium Sulfate 2 gm in 50 mls @ 150 mls/hr 07/22/24 04:51 07/22/24 05:47 Magnesium Sulfate/H2o IV 07/22/24 05:10 Infused ONCE ONE Infusion Methylprednisolone Sodium Succinate 125 mg 07/22/24 04:51 07/22/24 05:18 Methylprednisolone Sod Succ 125 Mg/2 Ml Vial IVPUSH 07/22/24 04:52 125 mg ONCE ONE Administration Medical Decision Making Medical Decision Making [facility] Narrative: Patient with asthma exacerbation improved after nebulizing treatment magnesium and prednisone much better will discharge patient home Lab Data [facility] Lab Attestation statement: I reviewed the patient's lab results. 07/22/24 04:50 07/22/24 04:50 Labs: Lab Results 07/22/24 07/22/24 07/22/24 Range/Units 04:50 04:52 04:54 WBC 9.3 (4.8-10.8) X10*3/uL RBC 4.98 (4.60-5.80) X10*6/uL Hgb 13.9 L (14.0-18.0) g/dl Hct 41.8 L (42.0-52.0) % MCV 83.9 (80.0-98.0) fL MCH 27.9 (27.0-33.0) pg MCHC 33.3 (31.0-36.0) g/dl RDW 13.1 (11.0-16.0) % Plt Count 337 (160-400) X10*3/uL MPV 9.6 (9.4-12.4) fL Immature Gran % (Auto) 0.4 (0.0-0.4) % Neut % (Auto) 68.6 (45-73) % Lymph % (Auto) 19.3 L (20-40) % [place] % (Auto) 6.5 (2-11) % Eos % (Auto) 4.7 H (0-4) % Baso % (Auto) 0.5 (0-2) % Lymph # (Auto) 1.8 (1.2-4.9) X10*3/uL [place] # (Auto) 0.6 (0.1-1.2) X10*3/uL Eos # (Auto) 0.4 (0.0-0.4) X10*3/uL Baso # (Auto) 0.1 (0.0-0.2) X10*3/uL Abs Immat Gran (auto) 0.04 H (0.00-0.03) X10*3/uL Absolute Neuts (auto) 6.4 (2.0-8.3) x10*3/uL Absolute Nucleated RBC 0.000 (0.0-0.012) X10*3/uL Nucleated RBC % (auto) 0.0 (0.0-0.2) /100WBC VBG pH 7.47 H (7.32-7.43) VBG pCO2 31 mmHg VBG pO2 157 mmHg VBG HCO3 23 (22-26) mmol/L VBG O2 Saturation 100.0 % VBG Base Excess 0.5 mmol/L Sodium 145 (135-145) mmol/L Potassium 3.8 (3.3-5.1) mmol/L Chloride 109 H (96-108) mmol/L Carbon Dioxide 22 (22-29) mmol/L Anion Gap 18 (12-20) BUN 16 (9-16) mg/dL Creatinine 0.83 (0.5-1.4) mg/dL Estim Creat Clear Calc 127.8 Estimated GFR > 60 Random Glucose 103 (60-115) mg/dL Calcium 9.7 (8.4-10.2) mg/dL Total Bilirubin 0.2 (0.0-1.0) mg/dL AST 26 (5-37) U/L ALT 20 (0-40) U/L Alkaline Phosphatase 74 (39-117) U/L Troponin I High Sens < 2.7 (<3.5-35.0) ng/L Total Protein 7.5 (6.5-8.0) g/dL Albumin 4.5 (3.5-5.0) g/dL Influenza Type A (PCR) NEGATIVE (Negative) Influenza Type B (PCR) NEGATIVE (Negative) RSV RNA Qual (PCR) NEGATIVE (Negative) SARS-CoV-2 RNA (RT-PCR) NEGATIVE (Negative) Discharge Plan Discharge Clinical Impression: Asthma with exacerbation Patient Disposition: Home, Self-Care Instructions: Asthma (ED) Additional Instructions: Take inhaler/nebulizing treatment as advised Prednisone as prescribed Antibiotic as prescribed Follow with your PCP as needed Prescriptions: New prednisone 20 mg tablet 40 mg PO DAILY Qty: 10 0RF cefuroxime axetil 500 mg tablet 500 mg PO BID 7 Days Qty: 14 0RF albuterol sulfate 90 mcg/actuation HFA aerosol inhaler 2 puff inhalation Q6H PRN (Reason: shortness of breath or wheezing) Qty: 8.5 0RF No Action prednisone 20 mg tablet 60 mg PO DAILY Qty: 12 0RF albuterol sulfate 90 mcg/actuation HFA aerosol inhaler 2 puff inhalation Q4-6H PRN (Reason: shortness of breath or wheezing) Qty: 8.5 0RF ketorolac 10 mg tablet 10 mg PO . b.i.d. PRN (Reason: pain) Qty: 10 0RF Rx Instructions: maximum total duration of 5 days from all oral, intranasal, or parenteral formulations cyclobenzaprine 10 mg tablet 10 mg PO TID PRN (Reason: muscle spasm) Qty: 10 0RF Rx Instructions: do not drive or operate machinery after taking this medication albuterol sulfate 90 mcg/actuation HFA aerosol inhaler 2 puff inhalation Q4-6H PRN (Reason: shortness of breath or wheezing) Qty: 8.5 2RF budesonide-formoterol 80-4.5 mcg/actuation HFA aerosol inhaler 2 puff inhalation BID Qty: 10.2 2RF prednisone 50 mg tablet 50 mg PO DAILY Qty: 4 0RF albuterol sulfate [Ventolin HFA] 90 mcg/actuation HFA aerosol inhaler 2 puff inhalation Q4-6H PRN (Reason: shortness of breath or wheezing) Qty: 6.7 0RF Interventions: ED Discharge Assessment Last Done: 07/22/24 07:10 Discharge Date/Time: 07/22/24 07:11 Print Language: Ukrainian
[2024-07-22 04:50] VITALS: BP 149/89; PULSE 90; RESP 29; TEMP 36.8; O2SAT 98
[2024-07-22 04:53] LABS: Venous Blood Gas Refer to POC result
[2024-07-22 04:55] LABS: Basophils Absolute Auto 0.1 X10*3/uL (0.0-0.2); Basophils Percent Auto 0.5 % (0-2); Eosinophils Absolute Auto 0.4 X10*3/uL (0.0-0.4); Eosinophils Percent Auto 4.7 % (0-4); Hematocrit 41.8 % (42.0-52.0); Hemoglobin 13.9 g/dl (14.0-18.0); Imm Gran Abs Auto 0.04 X10*3/uL (0.00-0.03); Imm Gran Pct Auto 0.4 % (0.0-0.4); Lymphocytes Absolute Auto 1.8 X10*3/uL (1.2-4.9); Lymphocytes Percent Auto 19.3 % (20-40); MANUAL DIFF FLAG NO; Mean Corpuscular HGB Conc 33.3 g/dl (31.0-36.0); Mean Corpuscular Hemoglobin 27.9 pg (27.0-33.0); Mean Corpuscular Volume 83.9 fL (80.0-98.0); Mean Platelet Volume 9.6 fL (9.4-12.4); Monocytes Absolute Auto 0.6 X10*3/uL (0.1-1.2); Monocytes Percent Auto 6.5 % (2-11); Neutrophils Absolute Auto 6.4 x10*3/uL (2.0-8.3); Neutrophils Percent Auto 68.6 % (45-73); Platelet Count 337 X10*3/uL (160-400); Red Blood Count 4.98 X10*6/uL (4.60-5.80); Red Cell Distribution Width 13.1 % (11.0-16.0); White Blood Count 9.3 X10*3/uL (4.8-10.8)
[2024-07-22 05:00] LABS: VBG Base Excess 0.5 mmol/L; VBG HCO3 23 mmol/L (22-26); VBG pCO2 31 mmHg; VBG pH 7.47 (7.32-7.43); VBG pO2 157 mmHg
[2024-07-22] MEDS: Albuterol Sulfate 5 MG, Albuterol/Iprat 2.5/0.5MG 3 ML 3 ML INHALE (05:01)
[2024-07-22 05:02] VITALS: PULSE 81; RESP 20; O2SAT 96
[2024-07-22 05:10] LABS: Alanine Aminotransferase 20 U/L (0-40); Albumin Level 4.5 g/dL (3.5-5.0); Alkaline Phosphatase 74 U/L (39-117); Anion Gap 18 (12-20); Aspartate Amino Transferase 26 U/L (5-37); Bilirubin Total 0.2 mg/dL (0.0-1.0); Blood Urea Nitrogen 16 mg/dL (9-16); Calcium 9.7 mg/dL (8.4-10.2); Carbon Dioxide 22 mmol/L (22-29); Chloride 109 mmol/L (96-108); Creatinine Clr Calc Pharmacy 127.8; Estimated Glomerular Filt Rate > 60; Glucose Random 103 mg/dL (60-115); Potassium 3.8 mmol/L (3.3-5.1); Sodium 145 mmol/L (135-145); Total Protein 7.5 g/dL (6.5-8.0)
[2024-07-22 05:17] LABS: Troponin-I High Sensitivity < 2.7 ng/L (<3.5-35.0)
[2024-07-22] MEDS: Magnesium Sulfate/H2O 2 GM/50 ML PIGGYBACK IV (05:18)
[2024-07-22] MEDS: methylPREDNISolone Sod Succ 125 MG/2 ML VIAL IVPUSH (05:18)
[2024-07-22 05:33] LABS: Influenza A PCR NEGATIVE (Negative); Influenza B PCR NEGATIVE (Negative); Resp Syncy Virus RNA Qual PCR NEGATIVE (Negative); SARS COV2 PCR INHOUSE NEGATIVE (Negative)
--- NOTE | 2024-07-22 05:39 | PC.NURSE ---
medicated for itching for the skin,
[2024-07-22 05:42] VITALS: BP 127/80; PULSE 85; RESP 20; TEMP 36.8; O2SAT 92
[2024-07-22] MEDS: diphenhydrAMINE HCL 50 MG/ML VIAL IVPUSH (05:49)
--- NOTE | 2024-07-22 06:16 | PC.NURSE ---
respiratory improvement.
[2024-07-22] MEDS: Albuterol Sulfate 90 MCG 8 GM INHALER 2 PUFF INHALE (06:51)
[2024-07-22 06:52] VITALS: PULSE 77; RESP 20; O2SAT 98
[2024-07-22] MEDS: cefuroxime axetiL 500 MG TABLET PO (07:07)
[2024-07-22 07:10] VITALS: BP 0/0; PULSE 77; RESP 20; TEMP 36.6; O2SAT 98
== END 2024-07-22 07:11 | disposition home or self-care (01) ==
PROVIDERS: Emergency Provider Internal Medicine
DX: J45.901 Unspecified asthma with (acute) exacerbation (principal); R06.00 Dyspnea, unspecified; R06.02 Shortness of breath; Z03.818 Encounter for observation for suspected exposure to other biological agents ruled out; Z79.899 Other long term (current) drug therapy
CPT/HCPCS: 0241U; 36415; 71045; 80053; 82803; 84484; 85025; 93005; 94640; 96365; 96375; 99285; J1200; J2919; J3475

== ENCOUNTER → 2024-07-22 04:41 | Outpatient (BNV) | payer MEDICAID, SELFPAY | PROVIDERS: Emergency Provider Internal Medicine; Visit Provider Internal Medicine Cardiovascular Disease | DX: R06.02 Shortness of breath (principal) | CPT/HCPCS: 93010 ==

== ENCOUNTER 2024-08-30 06:40 | Emergency (ER) | payer MEDICAID, SELFPAY ==
--- NOTE | ~2024-08-30 | XR_ITS ---
CLINICAL HISTORY: sob, cough 2 view chest x-ray Comparison: CR/KY/SR - XR CHEST 1V - 07/22/24 04:47 EST CR - CHEST 2 VIEWS [id number] - 09/09/16 21:45 EST Findings: No consolidation or effusion. Heart size is normal. No acute fracture. IMPRESSION: 1. No acute findings. This document has been electronically signed by: Willow Adams MD on 08/30/2024 06:57:28
[2024-08-30 06:41] VITALS: BP 118/77; PULSE 68; RESP 20; TEMP 36.6; O2SAT 96; BMI 32.4
[2024-08-30 06:58] VITALS: BP 118/76; PULSE 67; RESP 18; TEMP 36.4; O2SAT 96
--- NOTE | 2024-08-30 07:00 | PC.NURSE ---
a&ox4. vss and up to date. pt presents to the ED w/ asthma exacerbation x 1 day. pt reports increased dent and nonproductive cough w/ associated generalized chest pain w/ deep inspiration and cough. audible wheezing noted. hx asthma. pt reports not using inhalers x 1 week as he no longer has a PCP and ran out of medication. pt refused to be changed over into hospital attire as well as being placed on the monitoring coordinator. pt also refused SARS swab to be obtained. pr requesting breathing tx via RT. provider notified/aware. pt seems to be in no respiratory distress. 96% on RA. respirations even/slightly labored. pt positioned upright to promote patent airway. plan of care ongoing. call marie placed within reach.
--- NOTE | 2024-08-30 07:08 | ED_ITS ---
HPI - URI/Sore Throat General Chief Complaint: Upper Respiratory Symptoms Stated Complaint: asthma attack, coughing and wheezing Time Seen by Provider: 08/30/24 06:54 Source: patient, RN notes reviewed and old records reviewed Mode of arrival: ambulatory History of Present Illness ED Provider: Sharon Becker PA-C HPI Narrative: 34-year-old male with a past medical history of asthma, presenting to ED complaining of productive cough, SOB, chest tightness, wheezing, and asthma exacerbation since yesterday. States ran out of his albuterol inhaler yesterday, and currently does not have PCP. Denies fever, chills, travel, sick contacts, pedal edema, history of clots Related Data Previous Rx's ?Medication ?Instructions ?Recorded albuterol sulfate 90 mcg/actuation 2 puff inhalation Q4-6H PRN 02/01/24 aerosol inhaler shortness of breath or wheezing #8.5 grams budesonide-formoterol HFA 80 2 puff inhalation BID #10.2 grams 02/01/24 mcg-4.5 mcg/actuation aerosol inhaler cyclobenzaprine 10 mg tablet 10 mg PO TID PRN muscle spasm #10 02/01/24 tabs ketorolac 10 mg tablet 10 mg PO . b.i.d. PRN pain #10 tabs 02/01/24 prednisone 50 mg tablet 50 mg PO DAILY #4 tabs 02/01/24 albuterol sulfate 90 mcg/actuation 2 puff inhalation Q4-6H PRN 03/01/24 aerosol inhaler (Ventolin HFA) shortness of breath or wheezing #6.7 grams albuterol sulfate 90 mcg/actuation 2 puff inhalation Q4-6H PRN 03/25/24 aerosol inhaler shortness of breath or wheezing #8.5 grams prednisone 20 mg tablet 60 mg (3 x 20 mg) PO DAILY #12 tabs 03/25/24 albuterol sulfate 90 mcg/actuation 2 puff inhalation Q6H PRN 07/22/24 aerosol inhaler shortness of breath or wheezing #8.5 grams cefuroxime axetil 500 mg tablet 500 mg PO BID 7 days #14 tabs 07/22/24 prednisone 20 mg tablet 40 mg (2 x 20 mg) PO DAILY #10 tabs 07/22/24 albuterol sulfate 2.5 mg/0.5 mL 5 mg inhalation Q4H PRN shortness 08/30/24 solution for nebulization of breath or wheezing #30 ea albuterol sulfate 90 mcg/actuation 2 puff inhalation Q4-6H PRN 08/30/24 aerosol inhaler shortness of breath or wheezing #6.7 grams prednisone 20 mg tablet 40 mg (2 x 20 mg) PO DAILY 5 days 08/30/24 #10 tabs Allergies Allergy/AdvReac Type Severity Reaction Status Date / Time milk [MILK] Allergy Unknown LACTOSE Verified 08/30/24 06:42 INTOLERANT shrimp [SHRIMP] Allergy Unknown SWELLING, Verified 08/30/24 06:42 SOB CHOCOLATE Allergy Unknown GAS/BLOATIN Uncoded 07/22/24 04:49 G Review of Systems Review of Systems: Yes all other systems are reviewed and are negative Constitutional: Constitutional: Reports as per [facility] Past Medical History Attestation statement: The following information was validated with the patient. Source: old records reviewed Medical History Asthma Social History Social History Alcohol intake: current Alcohol intake frequency: holidays/special occasions only Substance Use Type: Marijuana Advance Directives: No Advance Directives Information Provided: No Do you have a plan to hurt others: No Plan Physical Exam Vital Signs: Vital Signs: Last Vital Signs Temp 97.6 F 08/30/24 06:58 Pulse 67 08/30/24 07:16 Resp 22 H 08/30/24 07:16 BP 118/76 08/30/24 06:58 Pulse Ox 96 08/30/24 06:58 O2 Del Method Room Air 08/30/24 06:58 BMI result Body Mass Index 32.4 Const: General: cooperative, healthy appearing and no acute distress Orientation/consciousness: patient oriented x3 Limitations: no limitations HEENT: Head: Yes normal to inspection and Yes atraumatic Ears: hearing grossly normal bilaterally General nose exam: Normal external nose present Face and sinus: Yes normal facial exam Eyes: General: appearance normal, both eyes and all related structures EOM: EOMs intact bilaterally Neck: Neck: Yes normal visual inspection and Yes no meningeal signs Resp: Effort & Inspection: no respiratory distress Auscultation: wheezes expiratory wheezes and throughout Cardio: Rate: regular rate Heart sounds: S1 normal heart sound present and S2 normal heart sound present Skin: Rashes: no rashes Wounds: no wounds Neuro: General: patient oriented x3, tone normal and no meningeal signs Cranial nerves: Yes CN's II-XII intact bilaterally Gait exam (Neuro): Normal gait present Extrem: General: Yes normal to inspection and Yes no pedal edema Course Course Course Narrative: XR chest 2V IMPRESSION: 1. No acute findings -812--on re-evaluation patient reports symptomatic improvement. Lungs with good air movement, slight end expiratory residual wheeze noted. Recommended additional DuoNeb however patient declined and would like to be discharged with albuterol inhaler to go to work. Results discussed with patient including worrisome signs and symptoms and strict return precautions, and when to return to the emergency department. They verbalized understanding and feel safe for discharge at this time. Medications Administered Discontinued Medications Generic Name Dose Route Start Last Admin Trade Name Freq PRN Reason Stop Dose Admin Albuterol Sulfate 2.5 mg/ 0 mg 08/30/24 07:12 08/30/24 07:16 Albuterol/Ipratropium 3 ml INHALE 08/30/24 07:13 1 dose ONCE ONE Administration Prednisone 40 mg 08/30/24 07:07 08/30/24 07:16 Prednisone 20 Mg Tablet PO 08/30/24 07:08 40 mg ONCE ONE Administration Medical Decision Making Medical Decision Making MDM Narrative: 34-year-old male with a past medical history of asthma, presenting to ED complaining of productive cough, SOB, chest tightness, wheezing, and asthma exacerbation since yesterday. On exam vital signs stable, NAD, nontoxic appea ring, audible wheeze appreciated, diffuse expiratory wheeze noted. Concern for asthma exacerbation vs viral illness vs pneumonia vs bronchitis. Lower suspicion for ACS/PE or DVT at this time Plan: EKG, CXR, viral testing, ED bronch protocol, IV Solu-Medrol. > patient refusing IV or IM labs/medications. States he only wants nebulized treatment, oral prednisone, and to be discharged to go to work. Please refer to course for remaining clinical decision making, interpretation of labs/imaging results, and discussions with consultants and/or family members. Differential Diagnosis Differential Diagnoses: The differential diagnosis associated with the presentation includes As above Admission/Observation Consideration of admission/observation: Escalation of care including admission/observation considered Independent Interpretation I performed an independent interpretation of an: Plain X-Ray Radiology Impression Discussion of test interpretation with radiology: I have reviewed the radiologist's reading. External Record Review External record reviewed: Inpatient record, Office record, Outpatient record, Pr ior outpatient labs, Prior outpatient radiology, Primary care record and Outside ED record Tests considered The following testing was considered but not selected: As above Prescription Management I considered prescription management with: Pain Medication and Antibiotic Chronic Conditions Patient?s care impacted by: Other (Asthma) Social Determinants Patient?s care significantly limited by Social Determinants of Health including: Other Social Determinant of Health Discharge Plan Discharge Clinical Impression: Asthma exacerbation Patient Disposition: Home, Self-Care Instructions: Asthma (DC) Additional Instructions: Your x-ray does not show pneumonia You need to see a greaser helper and establish care with a primary care doctor Continue to use your nebulizer and inhalers at home In addition take prednisone If her symptoms persist or worsen you have constant worsening chest pain, shortness of breath, fever return to the ED Prescriptions: New prednisone 20 mg tablet 40 mg PO DAILY 5 Days Qty: 10 0RF albuterol sulfate 90 mcg/actuation HFA aerosol inhaler 2 puff inhalation Q4-6H PRN (Reason: shortness of breath or wheezing) Qty: 6.7 0RF albuterol sulfate 2.5 mg/0.5 mL solution for nebulization 5 mg inhalation Q4H PRN (Reason: shortness of breath or wheezing) Qty: 30 0RF No Action prednisone 20 mg tablet 60 mg PO DAILY Qty: 12 0RF albuterol sulfate 90 mcg/actuation HFA aerosol inhaler 2 puff inhalation Q4-6H PRN (Reason: shortness of breath or wheezing) Qty: 8.5 0RF prednisone 20 mg tablet 40 mg PO DAILY Qty: 10 0RF cefuroxime axetil 500 mg tablet 500 mg PO BID 7 Days Qty: 14 0RF albuterol sulfate 90 mcg/actuation HFA aerosol inhaler 2 puff inhalation Q6H PRN (Reason: shortness of breath or wheezing) Qty: 8.5 0RF ketorolac 10 mg tablet 10 mg PO . b.i.d. PRN (Reason: pain) Qty: 10 0RF Rx Instructions: maximum total duration of 5 days from all oral, intranasal, or parenteral formulations cyclobenzaprine 10 mg tablet 10 mg PO TID PRN (Reason: muscle spasm) Qty: 10 0RF Rx Instructions: do not drive or operate machinery after taking this medication albuterol sulfate 90 mcg/actuation HFA aerosol inhaler 2 puff inhalation Q4-6H PRN (Reason: shortness of breath or wheezing) Qty: 8.5 2RF budesonide-formoterol 80-4.5 mcg/actuation HFA aerosol inhaler 2 puff inhalation BID Qty: 10.2 2RF prednisone 50 mg tablet 50 mg PO DAILY Qty: 4 0RF albuterol sulfate [Ventolin HFA] 90 mcg/actuation HFA aerosol inhaler 2 puff inhalation Q4-6H PRN (Reason: shortness of breath or wheezing) Qty: 6.7 0RF Referrals: [facility] [place], [place] Primary Care, Judith [Provider Group] [facility] [place] [place] Primary Care,Ignacia [Provider Group] [facility] [place] [place] Pulmonology Services [Provider Group] Print Language: Hungarian
[2024-08-30 07:16] VITALS: PULSE 67; RESP 22; O2SAT 96
[2024-08-30] MEDS: Albuterol Sulfate 2.5 MG, Albuterol/Iprat 2.5/0.5MG 3 ML 3 ML INHALE (07:16)
[2024-08-30] MEDS: predniSONE 20 MG TABLET 40 MG PO (07:16)
--- NOTE | 2024-08-30 07:17 | PC.NURSE ---
medication administered per provider order. pt receiving breathing tx via RT at this time. effectiveness pending.
[2024-08-30] MEDS: Albuterol Sulfate 90 MCG 8 GM INHALER 4 PUFF INHALE (08:26)
[2024-08-30 08:27] VITALS: BP 120/66; PULSE 66; RESP 18; TEMP 36.4; O2SAT 98
== END 2024-08-30 08:28 | disposition home or self-care (01) ==
PROVIDERS: Emergency Provider Emergency Medicine
DX: J45.901 Unspecified asthma with (acute) exacerbation (principal); R06.02 Shortness of breath
CPT/HCPCS: 71046; 94640; 99283; 99284

== ENCOUNTER → 2024-08-30 06:50 | Outpatient (BNV) | payer MEDICAID, SELFPAY | PROVIDERS: Visit Provider Radiology Diagnostic Radiology | DX: R06.02 Shortness of breath (principal); R05.9 Cough, unspecified | CPT/HCPCS: 71046 ==

== ENCOUNTER 2024-11-07 01:24 | Emergency (ER) | payer MEDICAID, SELFPAY ==
--- NOTE | 2024-11-07 | ECG_ITS ---
Test Reason : asthma Blood Pressure : */* mmHG Vent. Rate : 60 BPM Atrial Rate : 60 BPM P-R Int : 176 ms QRS Dur : 114 ms QT Int : 410 ms P-R-T Axes : 50 55 29 degrees QTcB Int : 410 ms Normal sinus rhythm Normal ECG When compared with ECG of 22-Jul-2024 04:41, Vent. rate has decreased by 30 bpm Referred By: Generic ED Physician Electronically Signed By: NORMA DECKER MD
--- NOTE | ~2024-11-07 | XR_ITS ---
CLINICAL HISTORY: shortness of breath, cough wheezing CHEST X-RAY FRONTAL AND LATERAL VIEWS COMPARISON: 08/30/2024. FINDINGS: Frontal and lateral views of the chest were performed. The cardiac size and mediastinal silhouette are within normal limits. The lungs are clear. There are no acute infiltrates or pleural effusions. There is no pneumothorax. IMPRESSION: 1. No acute disease. This document has been electronically signed by: Kev Rico M.D. on 11/07/2024 03:39:19
[2024-11-07 01:27] VITALS: BP 138/96; PULSE 68; O2SAT 98
[2024-11-07 01:31] VITALS: BP 118/93; PULSE 69; RESP 20; TEMP 36.8; O2SAT 97; BMI 32.1
[2024-11-07 02:02] LABS: Hematocrit 40.7 % (42.0-52.0); Hemoglobin 13.7 g/dl (14.0-18.0); Mean Corpuscular HGB Conc 33.7 g/dl (31.0-36.0); Mean Corpuscular Hemoglobin 28.1 pg (27.0-33.0); Mean Corpuscular Volume 83.6 fL (80.0-98.0); Mean Platelet Volume 8.9 fL (9.4-12.4); Platelet Count 329 X10*3/uL (160-400); Red Blood Count 4.87 X10*6/uL (4.60-5.80); White Blood Count 9.2 X10*3/uL (4.8-10.8)
[2024-11-07 02:32] LABS: Alanine Aminotransferase 41 U/L (0-40); Albumin Level 4.2 g/dL (3.5-5.0); Anion Gap 10 (12-20); Aspartate Amino Transferase 24 U/L (5-37); Bilirubin Total 0.3 mg/dL (0.0-1.0); Blood Urea Nitrogen 16 mg/dL (9-16); Calcium 8.7 mg/dL (8.4-10.2); Carbon Dioxide 24 mmol/L (22-29); Chloride 112 mmol/L (96-108); Creatinine Clr Calc Pharmacy 158.9; Estimated Glomerular Filt Rate > 60; Glucose Random 125 mg/dL (60-115); Magnesium 1.9 mg/dL (1.6-2.6); Potassium 3.3 mmol/L (3.3-5.1); Sodium 143 mmol/L (135-145); Total Protein 7.2 g/dL (6.5-8.0)
[2024-11-07 02:45] LABS: Alkaline Phosphatase 67 U/L (39-117)
[2024-11-07] MEDS: Albuterol Sulfate 2.5 MG, Albuterol/Iprat 2.5/0.5MG 3 ML 3 ML INHALE (04:01)
[2024-11-07 04:04] VITALS: PULSE 59; RESP 24; O2SAT 100
--- NOTE | 2024-11-07 04:54 | ED.ASTHMA ---
HPI - Asthma General Chief Complaint: Asthma Stated Complaint: SOB Time Seen by Provider: 11/07/24 03:58 Source: patient Mode of arrival: ambulatory Limitations: no limitations History of Present Illness ED Provider: HPI Narrative: Patient's history of asthma ran out of his inhaler and nebulizer medication about a week ago since then been having increased shortness a breath and wheezing no fever no chills patient does have frequent asthma attacks Related Data Previous Rx's ?Medication ?Instructions ?Recorded albuterol sulfate 90 mcg/actuation 2 puff inhalation Q4-6H PRN 02/01/24 aerosol inhaler shortness of breath or wheezing #8.5 grams budesonide-formoterol HFA 80 2 puff inhalation BID #10.2 grams 02/01/24 mcg-4.5 mcg/actuation aerosol inhaler cyclobenzaprine 10 mg tablet 10 mg PO TID PRN muscle spasm #10 02/01/24 tabs ketorolac 10 mg tablet 10 mg PO . b.i.d. PRN pain #10 tabs 02/01/24 prednisone 50 mg tablet 50 mg PO DAILY #4 tabs 02/01/24 albuterol sulfate 90 mcg/actuation 2 puff inhalation Q4-6H PRN 03/01/24 aerosol inhaler (Ventolin HFA) shortness of breath or wheezing #6.7 grams albuterol sulfate 90 mcg/actuation 2 puff inhalation Q4-6H PRN 03/25/24 aerosol inhaler shortness of breath or wheezing #8.5 grams prednisone 20 mg tablet 60 mg (3 x 20 mg) PO DAILY #12 tabs 03/25/24 albuterol sulfate 90 mcg/actuation 2 puff inhalation Q6H PRN 07/22/24 aerosol inhaler shortness of breath or wheezing #8.5 grams cefuroxime axetil 500 mg tablet 500 mg PO BID 7 days #14 tabs 07/22/24 prednisone 20 mg tablet 40 mg (2 x 20 mg) PO DAILY #10 tabs 07/22/24 albuterol sulfate 2.5 mg/0.5 mL 5 mg inhalation Q4H PRN shortness 08/30/24 solution for nebulization of breath or wheezing #30 ea albuterol sulfate 90 mcg/actuation 2 puff inhalation Q4-6H PRN 08/30/24 aerosol inhaler shortness of breath or wheezing #6.7 grams prednisone 20 mg tablet 40 mg (2 x 20 mg) PO DAILY 5 days 08/30/24 #10 tabs albuterol sulfate 2.5 mg/3 mL 2.5 mg (3 mL) inhalation Q4-6H PRN 11/07/24 (0.083 %) solution for nebulization shortness of breath or wheezing #90 mL albuterol sulfate 90 mcg/actuation 2 puff inhalation Q6H PRN 11/07/24 aerosol inhaler shortness of breath or wheezing #8.5 grams montelukast 10 mg tablet 10 mg PO BEDTIME #90 tabs 11/07/24 (Singulair) prednisone 20 mg tablet 40 mg (2 x 20 mg) PO DAILY #10 tabs 11/07/24 white petrolatum 44 % topical 1 ea topical BID #228 grams 11/07/24 ointment (DermaPhor) Allergies Allergy/AdvReac Type Severity Reaction Status Date / Time milk [MILK] Allergy Unknown LACTOSE Verified 11/07/24 01:35 INTOLERANT shrimp [SHRIMP] Allergy Unknown SWELLING, Verified 11/07/24 01:35 SOB CHOCOLATE Allergy Unknown GAS/BLOATIN Uncoded 11/07/24 01:35 G Review of Systems Review of Systems: Yes all other systems are reviewed and are negative [facility] Past Medical History Medical History Asthma Social History Social History Alcohol intake: current Alcohol intake frequency: holidays/special occasions only Substance Use Type: Marijuana Advance Directives: Yes Advance Directives Information Provided: Yes Advance Directives on File: No Physical Exam Vital Signs: Vital Signs: Last Vital Signs Temp 97.2 F 11/07/24 05:09 Pulse 60 11/07/24 05:09 Resp 16 11/07/24 05:09 BP 130/93 H 11/07/24 05:09 Pulse Ox 97 11/07/24 05:09 O2 Del Method Room Air 11/07/24 05:09 BMI result Body Mass Index 32.1 Appearance: Alert. Oriented X3. No acute distress. Eyes: No pallor or icterus ENT: Pharynx normal. Oral Mucosa moist Neck: Normal inspection. Neck supple. CVS: Normal heart rate and rhythm. Pulses normal. Respiratory: No respiratory distress. Equal air entry bilateral, bilateral wheezing Abdomen: Soft and nontender. Bowel sounds are present, no mass palpable, no CVA tenderness Skin: Skin warm and dry. Normal skin color. Normal skin turgor. Extremities: No lower extremity edema. No calf tenderness Neuro: Oriented X 3. Medications Administered Discontinued Medications Generic Name Dose Route Start Last Admin Trade Name Andrew PRN Reason Stop Dose Admin Albuterol Sulfate 2 puff 11/07/24 04:54 11/07/24 05:07 Albuterol Sulfate 90 Mcg 8 Gm Inhaler INHALE 11/07/24 04:55 2 puff ONCE ONE Administration Albuterol Sulfate 2.5 mg/ 0 mg 11/07/24 03:58 11/07/24 04:01 Albuterol/Ipratropium 3 ml INHALE 11/07/24 03:59 1 dose ONCE ONE Administration Prednisone 60 mg 11/07/24 03:58 11/07/24 05:07 Prednisone 20 Mg Tablet PO 11/07/24 03:59 60 mg ONCE ONE Administration Medical Decision Making Medical Decision Making [facility] Narrative: Patient's asthmatic improved after nebulizing treatment will discharge patient home on nebulizer, steroids Lab Data [facility] Lab Attestation statement: I reviewed the patient's lab results. 11/07/24 01:57 11/07/24 01:57 Labs: Lab Results 11/07/24 Range/Units 01:57 WBC 9.2 (4.8-10.8) X10*3/uL RBC 4.87 (4.60-5.80) X10*6/uL Hgb 13.7 L (14.0-18.0) g/dl Hct 40.7 L (42.0-52.0) % MCV 83.6 (80.0-98.0) fL MCH 28.1 (27.0-33.0) pg MCHC 33.7 (31.0-36.0) g/dl RDW 14.0 (11.0-16.0) % Plt Count 329 (160-400) X10*3/uL MPV 8.9 L (9.4-12.4) fL Absolute Nucleated RBC 0.000 (0.0-0.012) X10*3/uL Nucleated RBC % (auto) 0.0 (0.0-0.2) /100WBC Sodium 143 (135-145) mmol/L Potassium 3.3 (3.3-5.1) mmol/L Chloride 112 H (96-108) mmol/L Carbon Dioxide 24 (22-29) mmol/L Anion Gap 10 L (12-20) BUN 16 (9-16) mg/dL Creatinine 0.66 (0.5-1.4) mg/dL Estim Creat Clear Calc 158.9 Estimated GFR > 60 Random Glucose 125 H (60-115) mg/dL Calcium 8.7 D (8.4-10.2) mg/dL Magnesium 1.9 (1.6-2.6) mg/dL Total Bilirubin 0.3 (0.0-1.0) mg/dL AST 24 (5-37) U/L ALT 41 H (0-40) U/L Alkaline Phosphatase 67 (39-117) U/L Total Protein 7.2 (6.5-8.0) g/dL Albumin 4.2 (3.5-5.0) g/dL Independent Interpretation I performed an independent interpretation of an: Plain X-Ray Radiology Impression Discussion of test interpretation with radiology: I have reviewed the radiologist's reading. Radiologist Impression: NAD Discharge Plan Discharge Clinical Impression: Asthma with acute exacerbation Patient Disposition: Home, Self-Care Instructions: Asthma (ED) Additional Instructions: Rest at home Take albuterol inhaler/nebulizing treatment every 4 hours as needed Prednisone as prescribed Follow with the PCP if not better Prescriptions: New albuterol sulfate 2.5 mg /3 mL (0.083 %) solution for nebulization 2.5 mg inhalation Q4-6H PRN (Reason: shortness of breath or wheezing) Qty: 90 6RF prednisone 20 mg tablet 40 mg PO DAILY Qty: 10 0RF albuterol sulfate 90 mcg/actuation HFA aerosol inhaler 2 puff inhalation Q6H PRN (Reason: shortness of breath or wheezing) Qty: 8.5 6RF montelukast [Singulair] 10 mg tablet 10 mg PO BEDTIME Qty: 90 3RF DermaPhor 44 % ointment 1 ea topical BID Qty: 228 3RF No Action prednisone 20 mg tablet 60 mg PO DAILY Qty: 12 0RF albuterol sulfate 90 mcg/actuation HFA aerosol inhaler 2 puff inhalation Q4-6H PRN (Reason: shortness of breath or wheezing) Qty: 8.5 0RF prednisone 20 mg tablet 40 mg PO DAILY Qty: 10 0RF cefuroxime axetil 500 mg tablet 500 mg PO BID 7 Days Qty: 14 0RF albuterol sulfate 90 mcg/actuation HFA aerosol inhaler 2 puff inhalation Q6H PRN (Reason: shortness of breath or wheezing) Qty: 8.5 0RF prednisone 20 mg tablet 40 mg PO DAILY 5 Days Qty: 10 0RF albuterol sulfate 90 mcg/actuation HFA aerosol inhaler 2 puff inhalation Q4-6H PRN (Reason: shortness of breath or wheezing) Qty: 6.7 0RF albuterol sulfate 2.5 mg/0.5 mL solution for nebulization 5 mg inhalation Q4H PRN (Reason: shortness of breath or wheezing) Qty: 30 0RF ketorolac 10 mg tablet 10 mg PO . b.i.d. PRN (Reason: pain) Qty: 10 0RF Rx Instructions: maximum total duration of 5 days from all oral, intranasal, or parenteral formulations cyclobenzaprine 10 mg tablet 10 mg PO TID PRN (Reason: muscle spasm) Qty: 10 0RF Rx Instructions: do not drive or operate machinery after taking this medication albuterol sulfate 90 mcg/actuation HFA aerosol inhaler 2 puff inhalation Q4-6H PRN (Reason: shortness of breath or wheezing) Qty: 8.5 2RF budesonide-formoterol 80-4.5 mcg/actuation HFA aerosol inhaler 2 puff inhalation BID Qty: 10.2 2RF prednisone 50 mg tablet 50 mg PO DAILY Qty: 4 0RF albuterol sulfate [Ventolin HFA] 90 mcg/actuation HFA aerosol inhaler 2 puff inhalation Q4-6H PRN (Reason: shortness of breath or wheezing) Qty: 6.7 0RF Interventions: ED Discharge Assessment Last Done: 11/07/24 05:09 Discharge Date/Time: 11/07/24 05:10 Print Language: Chinese
[2024-11-07] MEDS: Albuterol Sulfate 90 MCG 8 GM INHALER 2 PUFF INHALE (05:07)
[2024-11-07] MEDS: predniSONE 20 MG TABLET 60 MG PO (05:07)
[2024-11-07 05:09] VITALS: BP 130/93; PULSE 60; RESP 16; TEMP 36.2; O2SAT 97
== END 2024-11-07 05:10 | disposition home or self-care (01) ==
PROVIDERS: Emergency Provider Internal Medicine
DX: J45.901 Unspecified asthma with (acute) exacerbation (principal); R05.9 Cough, unspecified
CPT/HCPCS: 36415; 71046; 80053; 83735; 85027; 93005; 94640; 99284

== ENCOUNTER → 2024-11-07 01:47 | Outpatient (BNV) | payer MEDICAID, SELFPAY | PROVIDERS: Emergency Provider Internal Medicine; Visit Provider Internal Medicine Cardiovascular Disease | DX: R06.02 Shortness of breath (principal) | CPT/HCPCS: 93010 ==

== ENCOUNTER → 2024-11-07 02:00 | Outpatient (BNV) | payer MEDICAID, SELFPAY | PROVIDERS: Emergency Provider Internal Medicine; Visit Provider Radiology Diagnostic Radiology | DX: R06.02 Shortness of breath (principal); R05.9 Cough, unspecified; R06.2 Wheezing | CPT/HCPCS: 71046 ==

== ENCOUNTER 2024-11-28 08:41 | Emergency (ER) | payer MEDICAID, SELFPAY ==
[2024-11-28 08:46] VITALS: BP 132/72; BP 175/65; PULSE 72; RESP 16; TEMP 36.5; O2SAT 95; O2SAT 98; BMI 32.4
--- OUTSIDE RECORDS SUMMARY | 2024-11-28 09:05 | XMS_ITS | Clinical Summary ---
Author Organization [employer] Address [address] [place] [address] Care Team Providers Care Collections Manager Name Role Phone Unavailable Primary Care Provider Unavailabl e Allergies No known active allergies Medications cyclobenzaprine (Flexeril) 10 MG tabletIndication s:Acute bilateral low back pain without sciatica Take 1 tablet (10 mg) by mouth 3 times daily for 10 days. 30 tablet 04/09/2024 Active Encounters Date Type Department Care Team Description 10/29/2024 Population Health Risk Score [facility] ([facility]) Department [address] [place] [id number] Provider, Population Health Generic from Last 3 Months Social History Tobacco Use Types Packs/Day Years Used Date Smoking Tobacco: Every Day Cigarettes Smokeless Tobacco: Never Tobacco Cessation:Ready to Q uit: Not Asked; Counseling Given: Not Answered Alcohol Use Standard Drinks/Week Comments Yes 0 (1 standard drink = 0.6 oz pur e alcohol) Sex and Gender Information Value Date Recorded Sex Assigned at Male 04/09/2024 4:03 PM EDT Legal Sex Male 4:01 PM EDT Gender Identity Male 04/09/2024 4:03 PM EDT Sexual Orientation Straight 04/09/2024 4: 03 PM EDT Last Filed Vital Signs Vital Sign Reading Time Taken Comments Blood Pressure 135/86 04/09/2024 4:11 PM EDT Pulse 77 04/09/2024 4:11 PM EDT Temperature 37.1 ??C (98.7 ??F) 04/09/2024 4:11 PM ED T Respiratory Rate 17 04/09/2024 4:11 PM EDT Oxygen Saturation 96% 04/09/2024 4:11 PM EDT Inhaled Oxygen Concentration - - Weight 84.4 kg (186 lb) 04/09/2024 4:11 PM EDT Height - - Body Mass Index - - Plan of Treatment Health Maintenance Due Date Last Done Comments Depression Screening 1989 HIV Screening 1989 Lipid Panel 1989 SDOH Screening 1989 Alcohol/Substance Use Screening 2001 Family Planning (PISQ) 02/28/2004 Hepatitis B Vaccines (2 of 3 - 3-dose series) 04/04/2005 03/07/2005 Hepatitis C Screening 2007 Pneumococcal Vaccine: Pediatrics (0 to 5 Years) and At-Risk Patients (6 to 49) Years) (1 of 2 - PCV) 02/28/2008 HPV Vaccines (2 - Male 3-dose series) 12/28/2009 11/30/2009 COVID-19 Vaccine ( - season) 2024 Influenza Vaccine (#1) 2024 6, 09/22/2009, 07/28/2009 Tobacco Screening 04/09/2025 04/09/2024 DTaP/Tdap/Td Vaccines (9 - Td or Tdap) 09/26/2025 09/26/2015, 03/01/2013, 07/28/2009, Additional history exists Zoster Vaccines (1 of 2) 2039 RSV Patients and Patients Aged 60 years or older (1 - 1-dose 75+ series) 02/28/2064 HIB Vaccines Completed 02/10/1991 IPV Vaccines Completed 03/13/1992, 01/17, 1989, Additional history exists Hepatitis A Vaccines Aged Out No long er eligible based on patient's age to complete this topic Meningococcal Vaccine Aged Out No sabas brisa eligible based on patient's age to complete this topic RSV under 20 months Aged Out No longe r eligible based on patient's age to complete this topic Rotavirus Vaccines Aged Out No longer eligible based on patient's age to complete this topic Insurance [facility]
--- OUTSIDE RECORDS SUMMARY | 2024-11-28 09:05 | XMS_ITS | Continuity of Care Document ---
Author Organization [employer] Address [address] [place] [phone] Phone Care Team Providers Care Development Technical Lead Name Role Phone Support, Services Unavailable Unavailable Procedures Procedure Date Intraor Complt Wbitewings Comprehensive Oral Evaluation Advance Directives Directive Yes / No Effective Date File Name No Information Encounters Encounter Description Practice Location Reason(s) For Visit Diagnoses Date Provider Providers Copied on Encounter [facility], [address] [place] [address], [id number], tel:[phone] [facility] No Information Support Services. . [facility], [address] [place] [address], [id number], tel:[phone] [facility] No Information [facility]. [address] [place] [address], [id number], . tel:[phone] Family History Family Member Type Diagnosis Age At Onset No Information Payers Payer name Insurance type Covered republican ID Authoriza tion(s) No Information Social History [...]
--- NOTE | 2024-11-28 09:18 | ED_ITS ---
HPI - SOB/Dyspnea General Chief Complaint: Dyspnea Stated Complaint: SOB Time Seen by Provider: 11/28/24 09:08 Source: patient and EMS Mode of arrival: EMS Limitations: no limitations History of Present Illness ED Provider: chichi garcia np. HPI Narrative: Patient is a 34-year-old male who presents emergency department via EMS for evaluation, he received a nebulizer treatment EN route. 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 He does admit that his asthma is triggered by various environmental factors. Unfortunately, he does not have a daily ICS but rather only his albuterol inhaler which he frequently runs out of. He states that he ran out of it 2 days ago. During the initial exacerbation he had some chest tightness and shortness of breath all which has since resolved. At this time he reports feeling well enough to go home. He offers no physical complaints. Denies any recent fevers, chills, URI symptoms, dizziness, lightheadedness, lower extremity redness pain or swelling, history of VTE or malignancy. Related Data Previous Rx's ?Medication ?Instructions ?Recorded albuterol sulfate 90 mcg/actuation 2 puff inhalation Q4-6H PRN 02/01/24 aerosol inhaler shortness of breath or wheezing #8.5 grams budesonide-formoterol HFA 80 2 puff inhalation BID #10.2 grams 02/01/24 mcg-4.5 mcg/actuation aerosol inhaler cyclobenzaprine 10 mg tablet 10 mg PO TID PRN muscle spasm #10 02/01/24 tabs ketorolac 10 mg tablet 10 mg PO . b.i.d. PRN pain #10 tabs 02/01/24 prednisone 50 mg tablet 50 mg PO DAILY #4 tabs 02/01/24 albuterol sulfate 90 mcg/actuation 2 puff inhalation Q4-6H PRN 03/01/24 aerosol inhaler (Ventolin HFA) shortness of breath or wheezing #6.7 grams albuterol sulfate 90 mcg/actuation 2 puff inhalation Q4-6H PRN 03/25/24 aerosol inhaler shortness of breath or wheezing #8.5 grams prednisone 20 mg tablet 60 mg (3 x 20 mg) PO DAILY #12 tabs 03/25/24 albuterol sulfate 90 mcg/actuation 2 puff inhalation Q6H PRN 07/22/24 aerosol inhaler shortness of breath or wheezing #8.5 grams cefuroxime axetil 500 mg tablet 500 mg PO BID 7 days #14 tabs 07/22/24 prednisone 20 mg tablet 40 mg (2 x 20 mg) PO DAILY #10 tabs 07/22/24 albuterol sulfate 2.5 mg/0.5 mL 5 mg inhalation Q4H PRN shortness 08/30/24 solution for nebulization of breath or wheezing #30 ea albuterol sulfate 90 mcg/actuation 2 puff inhalation Q4-6H PRN 08/30/24 aerosol inhaler shortness of breath or wheezing #6.7 grams prednisone 20 mg tablet 40 mg (2 x 20 mg) PO DAILY 5 days 08/30/24 #10 tabs albuterol sulfate 2.5 mg/3 mL 2.5 mg (3 mL) inhalation Q4-6H PRN 11/07/24 (0.083 %) solution for nebulization shortness of breath or wheezing #90 mL albuterol sulfate 90 mcg/actuation 2 puff inhalation Q6H PRN 11/07/24 aerosol inhaler shortness of breath or wheezing #8.5 grams montelukast 10 mg tablet 10 mg PO BEDTIME #90 tabs 11/07/24 (Singulair) prednisone 20 mg tablet 40 mg (2 x 20 mg) PO DAILY #10 tabs 11/07/24 white petrolatum 44 % topical 1 ea topical BID #228 grams 11/07/24 ointment (DermaPhor) albuterol sulfate 90 mcg/actuation 2 puff inhalation Q4-6H PRN 11/28/24 aerosol inhaler shortness of breath or wheezing #8.5 grams budesonide-formoterol HFA 80 2 puff inhalation BID #10.2 grams 11/28/24 mcg-4.5 mcg/actuation aerosol inhaler (Symbicort) Allergies Allergy/AdvReac Type Severity Reaction Status Date / Time milk [MILK] Allergy Unknown LACTOSE Verified 11/28/24 08:48 INTOLERANT shrimp [SHRIMP] Allergy Unknown SWELLING, Verified 11/28/24 08:48 SOB CHOCOLATE Allergy Unknown GAS/BLOATIN Uncoded 11/28/24 08:48 G Review of Systems Review of Systems: Yes all other systems are reviewed and are negative PMFSH Past Medical History Attestation statement: The following information was validated with the patient. Source: old records reviewed Medical History Asthma Social History Social History Alcohol intake: current Alcohol intake frequency: holidays/special occasions only Smoked in Last 30 Days: No Use of substances other than those prescribed or required for medical reasons: No Substance Use Type: Marijuana Advance Directives: No Advance Directives Information Provided: No Do you have a plan to hurt others: No Plan Physical Exam Vital Signs: Vital Signs: Last Vital Signs Temp 97.7 F 11/28/24 09:29 Pulse 72 11/28/24 09:29 Resp 16 11/28/24 09:29 BP 132/72 11/28/24 09:29 Pulse Ox 98 11/28/24 09:29 O2 Del Method Room Air 11/28/24 09:29 BMI result Body Mass Index 32.4 Appearance: Alert.?Oriented to person, place and time. No acute distress.?Normal affect. Eyes: Pupils equal, round and reactive to light.? ENT: Pharynx normal.?? Neck: Normal inspection.? Neck supple.?? CVS: Heart sounds normal. Normal heart rate and rhythm.? Pulses normal.?? Respiratory: No respiratory distress.? Lung sounds clear to auscultation bilaterally?? Abdomen: Soft and non-tender. Normoactive bowel sounds. Skin: Skin warm and dry.? Normal skin color.? Extremities: No lower extremity edema.? No calf ttp? Neuro: Moves all extremities spontaneously. Sensation intact bilaterally. Ambulates with normal steady gait. Medications Administered Discontinued Medications Generic Name Dose Route Start Last Admin Trade Name Freq PRN Reason Stop Dose Admin Albuterol Sulfate 2 puff 11/28/24 09:18 11/28/24 09:26 Albuterol Sulfate 90 Mcg 8 Gm Inhaler INHALE 11/28/24 09:19 2 puff ONCE ONE Administration Medical Decision Making Medical Decision Making MDM Narrative: Patient is a 44-year-old male with past medical history of asthma who presents emergency department for evaluation after an asthma exacerbation with onset at work unfortunately did not have his albuterol inhaler as per HPI. You received a DuoNeb updraft pre-hospital. He reports entire resolution of his symptoms. Currently his lung sounds are clear to the apices bilaterally, he is in no respiratory distress. No tachycardia tachypnea or hypoxia. He is requesting an albuterol inhaler in the emergency department which I feel is reasonable, I have additionally sent a prescription to his pharmacy. Given his daily usage of the albuterol inhaler, I have also sent a prescription for Symbicort so that he may take twice daily in hopes that he will decrease the frequency of his JORGE usage. We discussed the role of prednisone in acute exacerbations, he does not feel as though this is required, he otherwise has been feeling well until cleaning the [employer] station today. No rash or lesions, urticaria, or evidence of angioedema to suggest allergic reaction/anaphylaxis. No swallowing difficulties to suggest aspiration. No associated chest pain, lower extremity redness pain or swelling, history of VTE/malignancy to suggest ACS. CHF, pericardial effusion, or pulmonary embolism. No palpitations or history of known arrhythmias. No recent trauma or injury, no tracheal deviation, unlikely tension pneumothorax. No recent URI symptoms to suggest viral illness, or pneumonia. No acute bleeding or known anemia, no associated dizziness fatigue or chest pain to suggest acute anemia. Stable for discharge home at this time Differential Diagnosis Differential Diagnoses: The differential diagnosis associated with the presentation includes (See narrative above) Independent Historian Clinical information obtained from an independent historian. History obtained from or confirmed by: EMS External Record Review External record reviewed: Outpatient record Prescription Management I considered prescription management with: Other (See narrative above) Chronic Conditions Patient?s care impacted by: Other (See narrative above) Discharge Plan Discharge Clinical Impression: Asthma attack Patient Disposition: Home, Self-Care Additional Instructions: You were provided with a prescription for your albuterol inhaler which was sent to your pharmacy of choice, you were additionally given an albuterol inhaler while in the emergency department. Given the frequency that you are using your albuterol inhaler which is meant to be a ?rescue? inhaler, I have additionally sent a prescription for Symbicort to your pharmacy. This should be taken 2 puffs twice daily even if you are not having acute symptoms. This should allow you to use the albuterol inhaler at a lesser frequency. Please contact your primary care doctor to arrange for a follow-up visit. You may return to emergency department any new or worsening symptoms or concerns. Prescriptions: New budesonide-formoterol [Symbicort] 80-4.5 mcg/actuation HFA aerosol inhaler 2 puff inhalation BID Qty: 10.2 0RF albuterol sulfate 90 mcg/actuation HFA aerosol inhaler 2 puff inhalation Q4-6H PRN (Reason: shortness of breath or wheezing) Qty: 8.5 0RF No Action prednisone 20 mg tablet 60 mg PO DAILY Qty: 12 0RF albuterol sulfate 90 mcg/actuation HFA aerosol inhaler 2 puff inhalation Q4-6H PRN (Reason: shortness of breath or wheezing) Qty: 8.5 0RF prednisone 20 mg tablet 40 mg PO DAILY Qty: 10 0RF cefuroxime axetil 500 mg tablet 500 mg PO BID 7 Days Qty: 14 0RF albuterol sulfate 90 mcg/actuation HFA aerosol inhaler 2 puff inhalation Q6H PRN (Reason: shortness of breath or wheezing) Qty: 8.5 0RF prednisone 20 mg tablet 40 mg PO DAILY 5 Days Qty: 10 0RF albuterol sulfate 90 mcg/actuation HFA aerosol inhaler 2 puff inhalation Q4-6H PRN (Reason: shortness of breath or wheezing) Qty: 6.7 0RF albuterol sulfate 2.5 mg/0.5 mL solution for nebulization 5 mg inhalation Q4H PRN (Reason: shortness of breath or wheezing) Qty: 30 0RF albuterol sulfate 2.5 mg /3 mL (0.083 %) solution for nebulization 2.5 mg inhalation Q4-6H PRN (Reason: shortness of breath or wheezing) Qty: 90 6RF prednisone 20 mg tablet 40 mg PO DAILY Qty: 10 0RF albuterol sulfate 90 mcg/actuation HFA aerosol inhaler 2 puff inhalation Q6H PRN (Reason: shortness of breath or wheezing) Qty: 8.5 6RF montelukast [Singulair] 10 mg tablet 10 mg PO BEDTIME Qty: 90 3RF DermaPhor 44 % ointment 1 ea topical BID Qty: 228 3RF ketorolac 10 mg tablet 10 mg PO . b.i.d. PRN (Reason: pain) Qty: 10 0RF Rx Instructions: maximum total duration of 5 days from all oral, intranasal, or parenteral formulations cyclobenzaprine 10 mg tablet 10 mg PO TID PRN (Reason: muscle spasm) Qty: 10 0RF Rx Instructions: do not drive or operate machinery after taking this medication albuterol sulfate 90 mcg/actuation HFA aerosol inhaler 2 puff inhalation Q4-6H PRN (Reason: shortness of breath or wheezing) Qty: 8.5 2RF budesonide-formoterol 80-4.5 mcg/actuation HFA aerosol inhaler 2 puff inhalation BID Qty: 10.2 2RF prednisone 50 mg tablet 50 mg PO DAILY Qty: 4 0RF albuterol sulfate [Ventolin HFA] 90 mcg/actuation HFA aerosol inhaler 2 puff inhalation Q4-6H PRN (Reason: shortness of breath or wheezing) Qty: 6.7 0RF Referrals: [facility] [Primary Care Provider] - Interventions: ED Discharge Assessment Last Done: 11/28/24 09:29 Discharge Date/Time: 11/28/24 09:29 Print Language: Guyanese
[2024-11-28] MEDS: Albuterol Sulfate 90 MCG 8 GM INHALER 2 PUFF INHALE (09:26)
[2024-11-28 09:29] VITALS: BP 132/72; PULSE 72; RESP 16; TEMP 36.5; O2SAT 98
== END 2024-11-28 09:29 | disposition home or self-care (01) ==
PROVIDERS: Emergency Provider Emergency Medicine
DX: J45.901 Unspecified asthma with (acute) exacerbation (principal); R06.02 Shortness of breath
CPT/HCPCS: 99284

== ENCOUNTER → 2025-04-06 01:39 | Outpatient (BNV) | payer MEDICAID, SELFPAY | PROVIDERS: Visit Provider Radiology Neuroradiology | DX: J45.901 Unspecified asthma with (acute) exacerbation (principal) | CPT/HCPCS: 71046 ==

== ENCOUNTER 2025-04-06 01:42 | Emergency (ER) | payer MEDICAID, SELFPAY ==
--- NOTE | ~2025-04-06 | XR_ITS ---
CLINICAL HISTORY: asthma exa 2 view chest x-ray Comparison: Chest x-ray from 11/07/2024 Findings: No consolidation, pneumothorax, or pleural effusion. Low lung volumes with mild right basilar atelectasis and/or minimal pneumonitis. Imaged mediastinum and imaged osseous structures appear unchanged. IMPRESSION: No consolidation. This document has been electronically signed by: Pool Fuentes MD on 04/06/2025 02:48:55
[2025-04-06 01:50] VITALS: BP 135/73; PULSE 73; RESP 20; TEMP 36.5; O2SAT 96; BMI 33.3
[2025-04-06 01:56] VITALS: BP 126/79; PULSE 78; O2SAT 98
[2025-04-06 02:55] LABS: Hematocrit 40.3 % (42.0-52.0); Hemoglobin 13.5 g/dl (14.0-18.0); Imm Gran Abs Auto 0.06 X10*3/uL (0.00-0.03); Imm Gran Pct Auto 0.5 % (0.0-0.4); Lymphocytes Absolute Auto 2.4 X10*3/uL (1.2-4.9); MANUAL DIFF FLAG NO; Mean Corpuscular HGB Conc 33.5 g/dl (31.0-36.0); Mean Corpuscular Hemoglobin 28.5 pg (27.0-33.0); Mean Corpuscular Volume 85.0 fL (80.0-98.0); NRBC Abs Auto 0.000 X10*3/uL (0.0-0.012); NRBC Pct Auto 0.0 /100WBC (0.0-0.2); Platelet Count 327 X10*3/uL (160-400); Red Blood Count 4.74 X10*6/uL (4.60-5.80); White Blood Count 12.6 X10*3/uL (4.8-10.8)
[2025-04-06 03:11] LABS: Alanine Aminotransferase 58 U/L (0-40); Albumin Level 4.5 g/dL (3.5-5.0); Alkaline Phosphatase 82 U/L (39-117); Anion Gap 11 (12-20); Aspartate Amino Transferase 39 U/L (5-37); Blood Urea Nitrogen 21 mg/dL (9-16); Calcium 8.9 mg/dL (8.4-10.2); Carbon Dioxide 30 mmol/L (22-29); Chloride 106 mmol/L (96-108); Creatinine Clr Calc Pharmacy 153.2; Estimated Glomerular Filt Rate > 60; Potassium 3.3 mmol/L (3.3-5.1); Sodium 144 mmol/L (135-145); Total Protein 6.9 g/dL (6.5-8.0)
--- NOTE | 2025-04-06 03:19 | ED_ITS ---
HPI - Asthma General Chief Complaint: Asthma Stated Complaint: asthma exacerbation Time Seen by Provider: 04/06/25 03:19 Source: patient and EMS Mode of arrival: EMS Limitations: no limitations History of Present Illness ED Provider: Dr. Gwendolyn Allen HPI Narrative: 35 year old male with history of asthma and eczema presenting with dyspnea and pruritus ongoing for the last several weeks. Ran out of his inhaler and has been using a friend's. Admits his breathing feels better but his skin is extremely itchy. Feels his eczema is out of control. It has been this way for months, but he has not seen a doctor about it. No recent steriod use. Does not take immunomodulators. No assicated fever, cough, cold-type symptoms, leg swelling, known sick contacts or travel. Related Data Previous Rx's ?Medication ?Instructions ?Recorded albuterol sulfate 90 mcg/actuation 2 puff inhalation Q 4-6H PRN 02/01/24 aerosol inhaler shortness of breath or wheez ing #8.5 grams budesonide-formoterol HFA 80 2 puff inhalation BID #10 .2 grams 02/01/24 mcg-4.5 mcg/actuation aerosol inhaler cyclobenzaprine 10 mg tablet 10 mg PO TID PRN muscle s pasm #10 02/01/24 tabs ketorolac 10 mg tablet 10 mg PO . b.i.d. PRN pain # 10 tabs 02/01/24 prednisone 50 mg tablet 50 mg PO DAILY #4 tabs 01/31 albuterol sulfate 90 mcg/actuation 2 puff inhalation Q 4-6H PRN 03/01/24 aerosol inhaler (Ventolin HFA) shortness of breath or wheezing #6.7 grams albuterol sulfate 90 mcg/actuation 2 puff inhalation Q 4-6H PRN 03/25/24 aerosol inhaler shortness of breath or wheez ing #8.5 grams prednisone 20 mg tablet 60 mg (3 x 20 mg) PO DAILY # 12 tabs 03/25/24 albuterol sulfate 90 mcg/actuation 2 puff inhalation Q 6H PRN 07/22/24 aerosol inhaler shortness of breath or wheez ing #8.5 grams cefuroxime axetil 500 mg tablet 500 mg PO BID 7 days # 14 tabs 07/22/24 prednisone 20 mg tablet 40 mg (2 x 20 mg) PO DAILY # 10 tabs 07/22/24 albuterol sulfate 2.5 mg/0.5 mL 5 mg inhalation Q4H IA N shortness 08/30/24 solution for nebulization of breath or wheezing #30 ea albuterol sulfate 90 mcg/actuation 2 puff inhalation Q 4-6H PRN 08/30/24 aerosol inhaler shortness of breath or wheez ing #6.7 grams prednisone 20 mg tablet 40 mg (2 x 20 mg) PO DAILY 5 days 08/30/24 #10 tabs albuterol sulfate 2.5 mg/3 mL 2.5 mg (3 mL) inhalation Q4-6H PRN 11/07/24 (0.083 %) solution for nebulization shortness of breat h or wheezing #90 mL albuterol sulfate 90 mcg/actuation 2 puff inhalation Q 6H PRN 11/07/24 aerosol inhaler shortness of breath or wheez ing #8.5 grams montelukast 10 mg tablet 10 mg PO BEDTIME #90 tabs (Singulair) prednisone 20 mg tablet 40 mg (2 x 20 mg) PO DAILY # 10 tabs 11/07/24 white petrolatum 44 % topical 1 ea topical BID #228 gr ams 11/07/24 ointment (DermaPhor) albuterol sulfate 90 mcg/actuation 2 puff inhalation Q 4-6H PRN 11/28/24 aerosol inhaler shortness of breath or wheez ing #8.5 grams budesonide-formoterol HFA 80 2 puff inhalation BID #10 .2 grams 11/28/24 mcg-4.5 mcg/actuation aerosol inhaler (Symbicort) albuterol sulfate 90 mcg/actuation 2 inh inhalation Q4 H PRN shortness 04/06/25 breath activated powder inhaler of breath #1 ea betamethasone, augmented 0.05 % 1 appl topical BID PRN itching #50 04/06/25 topical ointment (Diprolene grams (augmented)) prednisone 50 mg tablet 50 mg PO DAILY 5 days #5 tab s 04/06/25 Allergies Allergy/AdvReac Type Severity Reaction Status Date / Time milk (MILK) Allergy Unknown LACTOSE Verified 04/06/25 01:52 INTOLERANT shrimp (SHRIMP) Allergy Unknown SWELLING, Verified 04/06/25 01:52 SOB CHOCOLATE Allergy Unknown GAS/BLOATIN Uncoded 04/06/25 01:52 G Review of Systems 2 Review of Systems: as per HPI, full review of systems performed and negative but for the above mentioned pertinent positives and negatives. [facility] Past Medical History Medical History Asthma Social History Social History Alcohol intake: current Alcohol intake frequency: holidays/special occasions only Substance Use Type: Marijuana Advance Directives: No Advance Directives Information Provided: No Physical Exam 2 Exam: Exam: GENERAL: Ill-appearing, mild respiratory distress. SKIN: Normal skin color for ethnicity, warm, dry, diffuse skin excoriations, eczematous rash, no cellulitic changes, no vesicular lesions. HEENT:? Normocephalic, atraumatic, no stridor, EOMI. NECK: Soft, supple, full ROM, midline structures nontender, no step-offs, no deformities, no lymphadenopathy. CHEST: Heart regular tachycardia, symmetric chest rise and fall. PULMONARY: Diffuse wheezes throughout, tachypnea, poor air movement bilaterally, mild respiratory distress. ABDOMINAL: Soft, nontender, quiet bowel sounds in all quadrants. : Deferred. MUSCULOSKELETAL: Normal tone, full range of motion, no deformities, no peripheral edema. NEURO: Alert and oriented to person, CN II through XII intact, no focal neurologic deficits.? PSYCHIATRIC: Anxious affect, appropriate demeanor. Vital Signs: Vital Signs: Last Vital Signs Temp 98 F 04/06/25 07:45 Pulse 68 04/06/25 07:45 Resp 15 04/06/25 07:45 BP 117/70 04/06/25 07:45 Pulse Ox 98 04/06/25 07:45 O2 Del Method Room Air 04/06/25 07:45 BMI result Body Mass Index 33.3 Medications Administered Discontinued Medications Generic Name Dose Route Start Last Admin Trade Name Freq PRN Reason Stop Dose Admin Betamethasone Dipropion Augmented 1 appl 04/06/25 05:34 04/06/25 07:40 Betamethasone Dip Aug 0.05% Cr 15 Gm Tube TOPICAL 04/06/25 05:35 1 appl ONCE ONE Administration Protocol Gabapentin 300 mg 04/06/25 05:38 04/06/25 05:43 Gabapentin 300 Mg Capsule PO 04/06/25 05:39 300 mg ONCE ONE Administration Ketorolac Tromethamine 15 mg 04/06/25 05:34 04/06/25 05:43 Ketorolac Tromethamine 15 Mg/Ml Vial IVPUSH 04/06/25 05:35 15 mg ONCE ONE Administration Loratadine 10 mg 04/06/25 03:19 04/06/25 03:37 Loratadine 10 Mg Tablet PO 04/06/25 03:20 10 mg ONCE ONE Administration Methylprednisolone Sodium Succinate 60 mg 04/06/25 03:19 04/06/25 03:37 Methylprednisolone Sod Succ 125 Mg/2 Ml Vial IVPUSH 04/06/25 03:20 60 mg ONCE ONE Administration Medical Decision Making Medical Decision Making [facility] Narrative: Patient presents today with chief complaint of rash, asthma exacerbation. Differential diagnosis is broad. I considered diagnoses including all rashes that might represent some type of emergent pathology. The patient specifically does not have evidence of vesicles, blistering, petechiae or purpura, involvement of the palms, soles or mucous membranes. There has not been any introduction of new medications. Vital signs are normal. Systemically very well- appearing. Rash consistent with eczema that is untreated. Asthma is under control after just one duoneb. Will provide with prescriptions for steriods, HFA inhaler, referral to derm. He could really benefit from an immunomodulator therapy. Using shared decision making, plan for discharge home to follow-up with primary care and/or specialist.? Patient understands and agrees with plan for discharge.? Discharged home in stable condition. Differential Diagnosis Differential Diagnoses: The differential diagnosis associated with the presentation includes (as above) Admission/Observation Consideration of admission/observation: Escalation of care including admission/observation considered Lab Data [facility] Lab Attestation statement: I reviewed the patient's lab results. 04/06/25 02:50 04/06/25 02:50 Labs: Lab Results 04/06/25 Range/Units 02:50 WBC 12.6 H (4.8-10.8) X10*3/uL RBC 4.74 (4.60-5.80) X10*6/uL Hgb 13.5 L (14.0-18.0) g/dl Hct 40.3 L (42.0-52.0) % MCV 85.0 (80.0-98.0) fL MCH 28.5 (27.0-33.0) pg MCHC 33.5 (31.0-36.0) g/dl RDW 13.6 (11.0-16.0) % Plt Count 327 (160-400) X10*3/uL MPV 9.1 L (9.4-12.4) fL Immature Gran % (Auto) 0.5 H (0.0-0.4) % Neut % (Auto) 61.9 (45-73) % Lymph % (Auto) 18.7 L (20-40) % Mills % (Auto) 9.5 (2-11) % Eos % (Auto) 8.7 H (0-4) % Baso % (Auto) 0.7 (0-2) % Lymph # (Auto) 2.4 (1.2-4.9) X10*3/uL Mills # (Auto) 1.2 (0.1-1.2) X10*3/uL Eos # (Auto) 1.1 H (0.0-0.4) X10*3/uL Baso # (Auto) 0.1 (0.0-0.2) X10*3/uL Abs Immat Gran (auto) 0.06 H (0.00-0.03) X10*3/uL Absolute Neuts (auto) 7.8 (2.0-8.3) x10*3/uL Absolute Nucleated RBC 0.000 (0.0-0.012) X10*3/uL Nucleated RBC % (auto) 0.0 (0.0-0.2) /100WBC Sodium 144 (135-145) mmol/L Potassium 3.3 (3.3-5.1) mmol/L Chloride 106 (96-108) mmol/L Carbon Dioxide 30 H (22-29) mmol/L Anion Gap 11 L (12-20) BUN 21 H (9-16) mg/dL Creatinine 0.69 (0.5-1.4) mg/dL Estim Creat Clear Calc 153.2 Estimated GFR > 60 Random Glucose 100 (60-115) mg/dL Calcium 8.9 (8.4-10.2) mg/dL Total Bilirubin 0.5 (0.0-1.0) mg/dL AST 39 H (5-37) U/L ALT 58 H (0-40) U/L Alkaline Phosphatase 82 (39-117) U/L Total Protein 6.9 (6.5-8.0) g/dL Albumin 4.5 (3.5-5.0) g/dL Independent Interpretation I performed an independent interpretation of an: Plain X-Ray Interpretation: My independent interpretation of the chest x-ray reveals no consolidations, pulmonary edema, pleural effusion, pneumothorax, obvious bony abnormalities. Radiology Impression Discussion of test interpretation with radiology: I have reviewed the radiologist's reading. Independent Historian Clinical information obtained from an independent historian. 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 Take your steroids for the next 5 days. Use topical steroids for your eczema. Call a system specialist. Find a primary care provider, make an appointment and get medications for your eczema. You do not have to suffer this badly. There are lots of treatment options out there for eczema. Prescriptions: New prednisone 50 mg tablet 50 mg PO DAILY 5 Days Qty: 5 0RF albuterol sulfate 90 mcg/actuation aerosol powdr breath activated 2 inh inhalation Q4H PRN (Reason: shortness of breath) Qty: 1 0RF betamethasone, augmented [Diprolene (augmented)] 0.05 % ointment 1 appl topical BID PRN (Reason: itching) Qty: 50 0RF No Action prednisone 20 mg tablet 60 mg PO DAILY Qty: 12 0RF albuterol sulfate 90 mcg/actuation HFA aerosol inhaler 2 puff inhalation Q4-6H PRN (Reason: shortness of breath or wheezing) Qty: 8.5 0RF prednisone 20 mg tablet 40 mg PO DAILY Qty: 10 0RF cefuroxime axetil 500 mg tablet 500 mg PO BID 7 Days Qty: 14 0RF albuterol sulfate 90 mcg/actuation HFA aerosol inhaler 2 puff inhalation Q6H PRN (Reason: shortness of breath or wheezing) Qty: 8.5 0RF prednisone 20 mg tablet 40 mg PO DAILY 5 Days Qty: 10 0RF albuterol sulfate 90 mcg/actuation HFA aerosol inhaler 2 puff inhalation Q4-6H PRN (Reason: shortness of breath or wheezing) Qty: 6.7 0RF albuterol sulfate 2.5 mg/0.5 mL solution for nebulization 5 mg inhalation Q4H PRN (Reason: shortness of breath or wheezing) Qty: 30 0RF albuterol sulfate 2.5 mg /3 mL (0.083 %) solution for nebulization 2.5 mg inhalation Q4-6H PRN (Reason: shortness of breath or wheezing) Qty: 90 6RF prednisone 20 mg tablet 40 mg PO DAILY Qty: 10 0RF albuterol sulfate 90 mcg/actuation HFA aerosol inhaler 2 puff inhalation Q6H PRN (Reason: shortness of breath or wheezing) Qty: 8.5 6RF montelukast [Singulair] 10 mg tablet 10 mg PO BEDTIME Qty: 90 3RF DermaPhor 44 % ointment 1 ea topical BID Qty: 228 3RF ketorolac 10 mg tablet 10 mg PO . b.i.d. PRN (Reason: pain) Qty: 10 0RF Rx Instructions: maximum total duration of 5 days from all oral, intranasal, or parenteral formulations cyclobenzaprine 10 mg tablet 10 mg PO TID PRN (Reason: muscle spasm) Qty: 10 0RF Rx Instructions: do not drive or operate machinery after taking this medication albuterol sulfate 90 mcg/actuation HFA aerosol inhaler 2 puff inhalation Q4-6H PRN (Reason: shortness of breath or wheezing) Qty: 8.5 2RF budesonide-formoterol 80-4.5 mcg/actuation HFA aerosol inhaler 2 puff inhalation BID Qty: 10.2 2RF prednisone 50 mg tablet 50 mg PO DAILY Qty: 4 0RF albuterol sulfate [Ventolin HFA] 90 mcg/actuation HFA aerosol inhaler 2 puff inhalation Q4-6H PRN (Reason: shortness of breath or wheezing) Qty: 6.7 0RF budesonide-formoterol [Symbicort] 80-4.5 mcg/actuation HFA aerosol inhaler 2 puff inhalation BID Qty: 10.2 0RF albuterol sulfate 90 mcg/actuation HFA aerosol inhaler 2 puff inhalation Q4-6H PRN (Reason: shortness of breath or wheezing) Qty: 8.5 0RF Interventions: ED Discharge Assessment Last Done: 04/06/25 07:45 Discharge Date/Time: 04/06/25 07:46 Print Language: Uzbek
--- NOTE | 2025-04-06 05:38 | PC.NURSE ---
RN informed provider about pts c/o of pain all over body. No new orders at this moment.
--- NOTE | 2025-04-06 05:48 | PC.NURSE ---
made aware that betamethasone is not in the pyxis. RN [facility] med request.
[2025-04-06 07:31] VITALS: BP 117/70; PULSE 68; RESP 15; O2SAT 98
[2025-04-06] MEDS: Betamethasone Dip Aug 0.05% Cr 15 GM TUBE 1 APPL TOPICAL (07:40)
[2025-04-06 07:45] VITALS: BP 117/70; PULSE 68; RESP 15; TEMP 36.6; O2SAT 98
== END 2025-04-06 07:46 | disposition home or self-care (01) ==
PROVIDERS: Emergency Provider Emergency Medicine
DX: J45.901 Unspecified asthma with (acute) exacerbation (principal); L30.9 Dermatitis, unspecified; R06.02 Shortness of breath; L29.9 Pruritus, unspecified
CPT/HCPCS: 36415; 71046; 80053; 85025; 96374; 96375; 99284; J1885; J2919

== ENCOUNTER 2025-04-29 00:30 | Emergency (ER) | payer MEDICAID, SELFPAY ==
--- OUTSIDE RECORDS SUMMARY | 2024-02-20 07:49 | XMS_ITS | Continuity of Care Document ---
Author Organization [facility] Address [address] [place] [id number] Phone Care Team Providers Care Director Of Assessing Name Role Phone Support, Services Unavailable Unavailable Procedures Procedure Date Intraor Complt Wbitewings Comprehensive Oral Evaluation Advance Directives Directive Yes / No Effective Date File Name No Information Encounters Encounter Description Practice Location Reason(s) For Visit Diagnoses Date Provider Providers Copied on Encounter [facility], [address] [place] [address], [id number], tel:[phone] [facility] Medical No Information Support Services. . [facility], [address] [place] [address], [id number], tel:[phone] [facility] Dental No Information [facility]. [address] [place] [address], [id number], [place]. tel:[phone] Family History Family Member Type Diagnosis Age At Onset No Information Payers Payer name Insurance type Covered green party ID Authoriza tion(s) No Information Social History Type Description Quantity Date Captured Comments Sex Male Smoking Status No Information Chief Complaint And Reason For Visit No Information Reason For Referral Reason For Referral No Information Plan Of Treatment Date Type Action Status Goal Depression screening. Due on due Goal Hepatitis C screening. Due o n due Goal H&P. Due on due Goal HIV Screen. Due on due Goal Unhealthy drug use screening . Due on due Goal Tdap. Due on due Goal Influenza vaccine. Due on due History Of Present Illness Encounter Date Complaint History Of Prese nt Illness No Information Functional Status Date Functional Assessmen t No Information Instructions Date Instruction Additional Infor mation No Information Assessments Type Assessment Date No Information Patient Care Teams Name Effective Dates (start - stop) Status Members No Information
[2025-04-29 00:36] VITALS: BP 138/82; PULSE 90; O2SAT 98
[2025-04-29 00:37] VITALS: BMI 33.8
[2025-04-29 00:44] VITALS: BP 137/98; PULSE 73; RESP 22; O2SAT 97
--- NOTE | 2025-04-29 00:52 | ED_ITS ---
HPI - SOB/Dyspnea General Chief Complaint: Dyspnea Stated Complaint: SOB Time Seen by Provider: 04/29/25 00:44 Source: patient Mode of arrival: ambulatory Limitations: no limitations History of Present Illness ED Provider: HPI Narrative: 35-year-old male with a history of eczema and asthma, frequent exacerbations, continues to use some tobacco, states sleeps in his office which is very aly and what is a trigger as well, no fevers or chills no atypical symptoms for him, essentially requesting nebulizer treatment and steroids. He mentioned another issue is that diarrhea for the past 2 weeks but did not really concentrate on the symptom without discussion and was mostly looking forward to improve in his breathing and discharge. Related Data Previous Rx's ?Medication ?Instructions ?Recorded albuterol sulfate 90 mcg/actuation 2 puff inhalation Q 4-6H PRN 02/01/24 aerosol inhaler shortness of breath or wheez ing #8.5 grams budesonide-formoterol HFA 80 2 puff inhalation BID #10 .2 grams 02/01/24 mcg-4.5 mcg/actuation aerosol inhaler cyclobenzaprine 10 mg tablet 10 mg PO TID PRN muscle s pasm #10 02/01/24 tabs ketorolac 10 mg tablet 10 mg PO . b.i.d. PRN pain # 10 tabs 02/01/24 prednisone 50 mg tablet 50 mg PO DAILY #4 tabs 01/31 albuterol sulfate 90 mcg/actuation 2 puff inhalation Q 4-6H PRN 03/01/24 aerosol inhaler (Ventolin HFA) shortness of breath or wheezing #6.7 grams albuterol sulfate 90 mcg/actuation 2 puff inhalation Q 4-6H PRN 03/25/24 aerosol inhaler shortness of breath or wheez ing #8.5 grams prednisone 20 mg tablet 60 mg (3 x 20 mg) PO DAILY # 12 tabs 03/25/24 albuterol sulfate 90 mcg/actuation 2 puff inhalation Q 6H PRN 07/22/24 aerosol inhaler shortness of breath or wheez ing #8.5 grams cefuroxime axetil 500 mg tablet 500 mg PO BID 7 days # 14 tabs 07/22/24 prednisone 20 mg tablet 40 mg (2 x 20 mg) PO DAILY # 10 tabs 07/22/24 albuterol sulfate 2.5 mg/0.5 mL 5 mg inhalation Q4H NV N shortness 08/30/24 solution for nebulization of breath or wheezing #30 ea albuterol sulfate 90 mcg/actuation 2 puff inhalation Q 4-6H PRN 08/30/24 aerosol inhaler shortness of breath or wheez ing #6.7 grams prednisone 20 mg tablet 40 mg (2 x 20 mg) PO DAILY 5 days 08/30/24 #10 tabs albuterol sulfate 2.5 mg/3 mL 2.5 mg (3 mL) inhalation Q4-6H PRN 11/07/24 (0.083 %) solution for nebulization shortness of breat h or wheezing #90 mL albuterol sulfate 90 mcg/actuation 2 puff inhalation Q 6H PRN 11/07/24 aerosol inhaler shortness of breath or wheez ing #8.5 grams montelukast 10 mg tablet 10 mg PO BEDTIME #90 tabs (Singulair) prednisone 20 mg tablet 40 mg (2 x 20 mg) PO DAILY # 10 tabs 11/07/24 white petrolatum 44 % topical 1 ea topical BID #228 gr ams 11/07/24 ointment (DermaPhor) albuterol sulfate 90 mcg/actuation 2 puff inhalation Q 4-6H PRN 11/28/24 aerosol inhaler shortness of breath or wheez ing #8.5 grams budesonide-formoterol HFA 80 2 puff inhalation BID #10 .2 grams 11/28/24 mcg-4.5 mcg/actuation aerosol inhaler (Symbicort) albuterol sulfate 90 mcg/actuation 2 inh inhalation Q4 H PRN shortness 04/06/25 breath activated powder inhaler of breath #1 ea betamethasone, augmented 0.05 % 1 appl topical BID PRN itching #50 04/06/25 topical ointment (Diprolene grams (augmented)) prednisone 50 mg tablet 50 mg PO DAILY 5 days #5 tab s 04/06/25 prednisone 20 mg tablet 40 mg (2 x 20 mg) PO DAILY 5 days 04/29/25 #10 tabs Allergies Allergy/AdvReac Type Severity Reaction Status Date / Time milk (MILK) Allergy Unknown LACTOSE Verified 04/29/25 00:43 INTOLERANT shrimp (SHRIMP) Allergy Unknown SWELLING, Verified 04/29/25 00:43 SOB CHOCOLATE Allergy Unknown GAS/BLOATIN Uncoded 04/29/25 00:43 G Review of Systems Constitutional: Constitutional: Reports as per [facility] Past Medical History Medical History Asthma Social History Social History Alcohol intake: current Alcohol intake frequency: holidays/special occasions only Smoked in Last 30 Days: Yes Use of substances other than those prescribed or required for medical reasons: No Substance Use Type: Marijuana Physical Exam Vital Signs: Vital Signs: Last Vital Signs Pulse 73 04/29/25 00:44 Resp 22 H 04/29/25 00:44 BP 137/98 H 04/29/25 00:44 Pulse Ox 97 04/29/25 00:44 BMI result Body Mass Index 33.8 Const: Other: * Gen: ?Overall well-appearing patient * Neck: Supple, no LAD * CV: RRR, no obvious murmurs appreciated * Resp: ?Moving air, barrel-chested, expiratory wheezing throughout * Abd: ?Bowel sounds are present, no tenderness no rebound no rigidity * MSK: FROM, strength 5/5 all extremities * Skin: Eczema over body and some facial * Neuro: ?Alert and oriented x3, moving upper and lower extremities symmetrically, no obvious facial asymmetry noted Medical Decision Making Medical Decision Making MDM Narrative: 12:59 AM 04/29/2025 (Dr. Maury Hogan): Presenting with wheezing, history of asthma, was seen here approximately 2-1/2 weeks ago for similar that point had chest x-ray, nothing to suspect pneumonia pneumothorax on physical examination did not feel further imaging such as chest x-ray is indicated, we spoke about smoking cessation, inhaled steroid use, unfortunately he is also sleeping in his office and likely has allergy exposure Differential Diagnosis Differential Diagnoses: The differential diagnosis associated with the presentation includes (CHF, COPD exacerbation, pneumonia, pneumothorax, ACS, PE,) Admission/Observation Consideration of admission/observation: Escalation of care including admission/observation considered Tests considered The following testing was considered but not selected: Chest x-ray Prescription Management I considered prescription management with: Antibiotic Discharge Plan Discharge Clinical Impression: Asthma with exacerbation Additional Instructions: Two puffs of albuterol every 4 hours for the rest of the day tomorrow, continue steroids starting tomorrow Worsening symptoms or issues come back to the ER Prescriptions: New prednisone 20 mg tablet 40 mg PO DAILY 5 Days Qty: 10 0RF No Action prednisone 20 mg tablet 60 mg PO DAILY Qty: 12 0RF albuterol sulfate 90 mcg/actuation HFA aerosol inhaler 2 puff inhalation Q4-6H PRN (Reason: shortness of breath or wheezing) Qty: 8.5 0RF prednisone 20 mg tablet 40 mg PO DAILY Qty: 10 0RF cefuroxime axetil 500 mg tablet 500 mg PO BID 7 Days Qty: 14 0RF albuterol sulfate 90 mcg/actuation HFA aerosol inhaler 2 puff inhalation Q6H PRN (Reason: shortness of breath or wheezing) Qty: 8.5 0RF prednisone 20 mg tablet 40 mg PO DAILY 5 Days Qty: 10 0RF albuterol sulfate 90 mcg/actuation HFA aerosol inhaler 2 puff inhalation Q4-6H PRN (Reason: shortness of breath or wheezing) Qty: 6.7 0RF albuterol sulfate 2.5 mg/0.5 mL solution for nebulization 5 mg inhalation Q4H PRN (Reason: shortness of breath or wheezing) Qty: 30 0RF albuterol sulfate 2.5 mg /3 mL (0.083 %) solution for nebulization 2.5 mg inhalation Q4-6H PRN (Reason: shortness of breath or wheezing) Qty: 90 6RF prednisone 20 mg tablet 40 mg PO DAILY Qty: 10 0RF albuterol sulfate 90 mcg/actuation HFA aerosol inhaler 2 puff inhalation Q6H PRN (Reason: shortness of breath or wheezing) Qty: 8.5 6RF montelukast [Singulair] 10 mg tablet 10 mg PO BEDTIME Qty: 90 3RF DermaPhor 44 % ointment 1 ea topical BID Qty: 228 3RF ketorolac 10 mg tablet 10 mg PO . b.i.d. PRN (Reason: pain) Qty: 10 0RF Rx Instructions: maximum total duration of 5 days from all oral, intranasal, or parenteral formulations cyclobenzaprine 10 mg tablet 10 mg PO TID PRN (Reason: muscle spasm) Qty: 10 0RF Rx Instructions: do not drive or operate machinery after taking this medication albuterol sulfate 90 mcg/actuation HFA aerosol inhaler 2 puff inhalation Q4-6H PRN (Reason: shortness of breath or wheezing) Qty: 8.5 2RF budesonide-formoterol 80-4.5 mcg/actuation HFA aerosol inhaler 2 puff inhalation BID Qty: 10.2 2RF prednisone 50 mg tablet 50 mg PO DAILY Qty: 4 0RF albuterol sulfate [Ventolin HFA] 90 mcg/actuation HFA aerosol inhaler 2 puff inhalation Q4-6H PRN (Reason: shortness of breath or wheezing) Qty: 6.7 0RF budesonide-formoterol [Symbicort] 80-4.5 mcg/actuation HFA aerosol inhaler 2 puff inhalation BID Qty: 10.2 0RF albuterol sulfate 90 mcg/actuation HFA aerosol inhaler 2 puff inhalation Q4-6H PRN (Reason: shortness of breath or wheezing) Qty: 8.5 0RF prednisone 50 mg tablet 50 mg PO DAILY 5 Days Qty: 5 0RF albuterol sulfate 90 mcg/actuation aerosol powdr breath activated 2 inh inhalation Q4H PRN (Reason: shortness of breath) Qty: 1 0RF betamethasone, augmented [Diprolene (augmented)] 0.05 % ointment 1 appl topical BID PRN (Reason: itching) Qty: 50 0RF Print Language: Bulgarian
[2025-04-29] MEDS: Albuterol Sulfate 90 MCG 8 GM INHALER 2 PUFF INHALE (01:09)
--- OUTSIDE RECORDS SUMMARY | 2025-04-29 01:12 | XMS_ITS | Clinical Summary ---
Author Organization [employer] Address [address] [place] [address] [address] [place] [address] Care Team Providers Care Medical Staff Physician Name Role Phone Unavailable Primary Care Provider Unavailabl e Allergies No known active allergies Medications cyclobenzaprine (Flexeril) 10 MG tabletIndication s:Acute bilateral low back pain without sciatica Take 1 tablet (10 mg) by mouth 3 times daily for 10 days. 30 tablet 04/09/2024 Active Social History Tobacco Use Types Packs/Day Years [...] 77 04/09/2024 4:11 PM EDT Temperature 37.1 C (98.7 F) 04/09/2024 4:11 PM EDT Respiratory Rate 17 04/09/2024 4:11 PM EDT Oxygen Saturation 96% 04/09/2024 4:11 PM EDT Inhaled Oxygen Concentration - - Weight 84.4 kg (186 lb) 04/09/2024 4:11 PM EDT Height - - Body Mass Index - - Plan of Treatment Health Maintenance Due Date Last Done Comments Depression Screening 1989 HIV Screening 1989 Lipid Panel 1989 SDOH Screening 1989 Disability Screening 1989 Alcohol/Substance Use Screening 2001 Family Planning (PISQ) 02/28/2004 Hepatitis B Vaccines (2 of 3 - 3-dose series) 04/04/2005 03/07/2005 Hepatitis C Screening 2007 Pneumococcal Vaccine: Pediatrics (0 to 5 Years) and At-Risk Patients (6 to 49) Years (1 of 2 - PCV) 02/28/2008 HPV Vaccines (2 - Male 3-dose series) 12/28/2009 11/30/2009 Tobacco Screening 04/09/2025 04/09/2024 COVID-19 Vaccine (1 - season) 2025 Influenza Vaccine (#1) 2025 6, 09/22/2009, 07/28/2009 DTaP/Tdap/Td Vaccines (9 - Td or Tdap) [...] patient's age to complete this topic Meningococcal B Vaccine Aged Out No l onger eligible based on patient's age to complete this topic Meningococcal Vaccine Aged Out No sabas brisa eligible based on patient's age to complete this topic RSV under 20 months Aged Out No longe r eligible based on patient's age to complete this topic Rotavirus Vaccines Aged Out No longer eligible based on patient's age to complete this topic Procedures Procedure Name Priority Date/Time Associated Diagnosis Comments CBC WITH AUTO DIFFERENTIAL Routine 04/06/2025 2:50 AM EDT from Last 3 Months Results * (ABNORMAL) CBC auto differential (04/06/2025 2:50 AM EDT) White Blood Count 12.6(H) 4.8 - 10.8 X10*3/uL [facility] Red Blood Count 4.74 4.60 - 5.80 X10*6/uL [facility] Hemoglobin 13.5(L) 14.0 - 18.0 g/dl [facility] Hematocrit 40.3(L) 42.0 - 52.0 % [facility] Mean Corpuscular Volume 85.0 80.0 - 98.0 fL [facility] Mean Corpuscular Hemoglobin 28.5 27.0 - 33.0 pg [facility] Mean Corpuscular HGB Conc 33.5 31.0 - 36.0 g/dl [facility] Red Cell Distribution Width 13.6 11.0 - 16.0 % [facility] Platelet Count 327 160 - 400 X10*3/uL [facility] Mean Platelet Volume 9.1(L) 9.4 - 12.4 fL [facility] Neutrophils Percent Auto 61.9 45 - 73 % [facility] Imm Gran Pct Auto 0.5(H) 0.0 - 0.4 % [facility] Lymphocytes Percent Auto 18.7(L) 20 - 40 % [facility] Monocytes Percent Auto 9.5 2 - 11 % [facility] Eosinophils Percent Auto 8.7(H) 0 - 4 % [facility] Basophils Percent Auto 0.7 0 - 2 % [facility] NRBC Pct Auto 0.0 0.0 - 0.2 /100WBC [facility] Neutrophils Absolute Auto 7.8 2.0 - 8.3 x10*3/uL [facility] Imm Gran Abs Auto 0.06(H) 0.00 - 0.03 X10*3/uL [facility] Lymphocytes Absolute Auto 2.4 1.2 - 4.9 X10*3/uL [facility] Monocytes Absolute Auto 1.2 0.1 - 1.2 X10*3/uL [facility] Eosinophils Absolute Auto 1.1(H) 0.0 - 0.4 X10*3/uL [facility] Basophils Absolute Auto 0.1 0.0 - 0.2 X10*3/uL [facility] NRBC Abs Auto 0.000 0.0 - 0.012 X10*3/uL [facility] 04/06/2025 2:50 AM EDT 04/06/2025 2:54 AM EDT us Generic External Data Provider LAB BLOOD ORDERAB LES Final Result [facility] [address] [place] [address] [phone] from Last 3 Months Insurance [facility] C3
[2025-04-29 02:27] VITALS: BP 131/93; PULSE 73; RESP 20; TEMP 36.8; O2SAT 98
[2025-04-29 02:29] VITALS: BP 131/93; PULSE 73; RESP 20; TEMP 36.8; O2SAT 98
== END 2025-04-29 02:31 | disposition home or self-care (01) ==
PROVIDERS: Emergency Provider Emergency Medicine
DX: J45.901 Unspecified asthma with (acute) exacerbation (principal); R06.02 Shortness of breath; R19.7 Diarrhea, unspecified; L30.9 Dermatitis, unspecified
CPT/HCPCS: 99284

== ENCOUNTER 2025-05-07 01:54 | Emergency (ER) | payer MEDICAID, SELFPAY ==
--- OUTSIDE RECORDS SUMMARY | 2024-02-20 07:49 | XMS_ITS | Continuity of Care Document ---
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 . [facility], [address] [place] [address], [id number], tel:[phone] [facility] Dental No Information [facility]. [address] [place] [address], [id number], . tel:[phone] Family History Family Member Type Diagnosis Age At Onset No Information Payers Payer name Insurance type Covered constitution party ID Authoriza tion(s) No Information Social History Type Description Quantity Date Captured Comments Sex Male Smoking Status No Information Chief Complaint And Reason For Visit No Information Reason For Referral Reason For Referral No Information Plan Of Treatment Date Type Action Status Goal Influenza vaccine. Due on due Goal Tdap. Due on due Goal Unhealthy drug use screening . Due on due Goal HIV Screen. Due on due Goal H&P. Due on due Goal Hepatitis C screening. Due o n due Goal Depression screening. Due on due History Of Present Illness Encounter Date Complaint History Of Prese nt Illness No Information Functional Status Date Functional Assessmen t No Information Instructions Date Instruction Additional Infor mation No Information Assessments Type Assessment Date No Information Patient Care Teams Name Effective Dates (start - stop) Status Members No Information
[2025-05-07] VITALS (7 sets, daily range): BP systolic 111–162; BP diastolic 75–94; PULSE 64–84; RESP 16–20; TEMP -17.7–37; O2SAT 92–98; BMI 33.3
--- NOTE | ~2025-05-07 | XR_ITS ---
CLINICAL HISTORY: cough, dyspnea 2 view chest x-ray Comparison: CR - XR CHEST 2V - 04/06/25 02:39 EDT CR - XR CHEST 2V - 11/07/24 02:01 EDT Findings: No consolidation or effusion. Heart size is normal. No acute fracture. IMPRESSION: 1. No acute findings. This document has been electronically signed by: Willow Adams MD on 05/07/2025 06:06:18
--- NOTE | 2025-05-07 02:10 | ED.ASTHMA ---
HPI - Asthma General Chief Complaint: Dyspnea Stated Complaint: Dif Breathing, Wheezing, Hx Asthma Time Seen by Provider: 05/07/25 02:01 Source: patient, EMS and old records reviewed Mode of arrival: EMS Limitations: no limitations History of Present Illness ED Provider: Dr. Gwendolyn Allen HPI Narrative: 35-year-old male with history of asthma and housing insecurity presenting with shortness of breath that is been worsening over the last 2 days. Describes running out of his inhaler yesterday and having continued wheezing today. Has been around several people that are sick. Denies associated fever. Cough is nonproductive. Describes chest tightness. Tightness is worse with deep breaths. Denies sore throat, abdominal pain, nausea, vomiting, diarrhea, lower extremity edema, recent travel. Related Data Previous Rx's ?Medication ?Instructions ?Recorded albuterol sulfate 90 mcg/actuation 2 puff inhalation Q4-6H PRN 02/01/24 aerosol inhaler shortness of breath or wheezing #8.5 grams budesonide-formoterol HFA 80 2 puff inhalation BID #10.2 grams 02/01/24 mcg-4.5 mcg/actuation aerosol inhaler cyclobenzaprine 10 mg tablet 10 mg PO TID PRN muscle spasm #10 02/01/24 tabs ketorolac 10 mg tablet 10 mg PO . b.i.d. PRN pain #10 tabs 02/01/24 prednisone 50 mg tablet 50 mg PO DAILY #4 tabs 02/01/24 albuterol sulfate 90 mcg/actuation 2 puff inhalation Q4-6H PRN 03/01/24 aerosol inhaler (Ventolin HFA) shortness of breath or wheezing #6.7 grams albuterol sulfate 90 mcg/actuation 2 puff inhalation Q4-6H PRN 03/25/24 aerosol inhaler shortness of breath or wheezing #8.5 grams prednisone 20 mg tablet 60 mg (3 x 20 mg) PO DAILY #12 tabs 03/25/24 albuterol sulfate 90 mcg/actuation 2 puff inhalation Q6H PRN 07/22/24 aerosol inhaler shortness of breath or wheezing #8.5 grams cefuroxime axetil 500 mg tablet 500 mg PO BID 7 days #14 tabs 07/22/24 prednisone 20 mg tablet 40 mg (2 x 20 mg) PO DAILY #10 tabs 07/22/24 albuterol sulfate 2.5 mg/0.5 mL 5 mg inhalation Q4H PRN shortness 08/30/24 solution for nebulization of breath or wheezing #30 ea albuterol sulfate 90 mcg/actuation 2 puff inhalation Q4-6H PRN 08/30/24 aerosol inhaler shortness of breath or wheezing #6.7 grams prednisone 20 mg tablet 40 mg (2 x 20 mg) PO DAILY 5 days 08/30/24 #10 tabs albuterol sulfate 2.5 mg/3 mL 2.5 mg (3 mL) inhalation Q4-6H PRN 11/07/24 (0.083 %) solution for nebulization shortness of breath or wheezing #90 mL albuterol sulfate 90 mcg/actuation 2 puff inhalation Q6H PRN 11/07/24 aerosol inhaler shortness of breath or wheezing #8.5 grams montelukast 10 mg tablet 10 mg PO BEDTIME #90 tabs 11/07/24 (Singulair) prednisone 20 mg tablet 40 mg (2 x 20 mg) PO DAILY #10 tabs 11/07/24 white petrolatum 44 % topical 1 ea topical BID #228 grams 11/07/24 ointment (DermaPhor) albuterol sulfate 90 mcg/actuation 2 puff inhalation Q4-6H PRN 11/28/24 aerosol inhaler shortness of breath or wheezing #8.5 grams budesonide-formoterol HFA 80 2 puff inhalation BID #10.2 grams 11/28/24 mcg-4.5 mcg/actuation aerosol inhaler (Symbicort) albuterol sulfate 90 mcg/actuation 2 inh inhalation Q4H PRN shortness 04/06/25 breath activated powder inhaler of breath #1 ea betamethasone, augmented 0.05 % 1 appl topical BID PRN itching #50 04/06/25 topical ointment (Diprolene grams (augmented)) prednisone 50 mg tablet 50 mg PO DAILY 5 days #5 tabs 04/06/25 prednisone 20 mg tablet 40 mg (2 x 20 mg) PO DAILY 5 days 04/29/25 #10 tabs albuterol sulfate 90 mcg/actuation 2 inh inhalation Q4H PRN shortness 05/07/25 breath activated powder inhaler of breath #1 ea prednisone 50 mg tablet 50 mg PO DAILY 5 days #5 tabs 05/07/25 Allergies Allergy/AdvReac Type Severity Reaction Status Date / Time milk (MILK) Allergy Unknown LACTOSE Verified 05/07/25 02:05 INTOLERANT shrimp (SHRIMP) Allergy Unknown SWELLING, Verified 05/07/25 02:05 SOB CHOCOLATE Allergy Unknown GAS/BLOATIN Uncoded 05/07/25 02:05 G Review of Systems Review of Systems: as per HPI, full review of systems performed and negative but for the above mentioned pertinent positives and negatives. [facility] Past Medical History Medical History Asthma Social History Social History Alcohol intake: current Alcohol intake frequency: holidays/special occasions only Substance Use Type: Marijuana Advance Directives: No Advance Directives Information Provided: Yes Physical Exam Exam: Exam: GENERAL: Ill-appearing, moderate respiratory distress. SKIN: Normal skin color for ethnicity, warm, dry, no rashes noted. HEENT:? Normocephalic, atraumatic, no stridor, EOMI. NECK: Soft, supple, full ROM, midline structures nontender, no step-offs, no deformities, no lymphadenopathy. CHEST: Heart regular tachycardia, symmetric chest rise and fall. PULMONARY: Diffuse wheezes throughout, tachypnea, poor air movement bilaterally, moderate respiratory distress. ABDOMINAL: Soft, nontender, quiet bowel sounds in all quadrants. : Deferred. MUSCULOSKELETAL: Normal tone, full range of motion, no deformities, no peripheral edema. NEURO: Alert and oriented to person, CN II through XII intact, no focal neurologic deficits.? PSYCHIATRIC: Anxious affect, appropriate demeanor. Vital Signs: Vital Signs: Last Vital Signs Temp 0 F L 05/07/25 07:22 Pulse 71 05/07/25 07:22 Resp 16 05/07/25 07:22 BP 132/84 05/07/25 07:22 Pulse Ox 96 05/07/25 07:22 O2 Del Method Room Air 05/07/25 07:22 BMI result Body Mass Index 33.3 Medications Administered Discontinued Medications Generic Name Dose Route Start Last Admin Trade Name Freq PRN Reason Stop Dose Admin Albuterol Sulfate 2 puff 05/07/25 07:15 05/07/25 07:20 Albuterol Sulfate 90 Mcg 8 Gm Inhaler INHALE 05/07/25 07:16 2 puff ONCE ONE Administration Albuterol Sulfate 5 mg/ 0 mg 05/07/25 02:18 05/07/25 02:21 Albuterol/Ipratropium 3 ml INHALE 05/07/25 02:19 1 each ONCE ONE Administration Prednisone 50 mg 05/07/25 02:07 05/07/25 02:31 Prednisone 10 Mg Tablet PO 05/07/25 02:08 50 mg ONCE ONE Administration Medical Decision Making Medical Decision Making [facility] Narrative: Patient presents today with chief complaint of shortness of breath. Differential diagnosis includes, but is not limited to, upper respiratory infection, pneumonia, COPD exacerbation, asthma exacerbation, CHF, pneumothorax, pleural effusion, pulmonary embolism, ACS. Broad-based work-up will be initiated to evaluate for etiology of patient's symptoms. Patient's workup today has been reassuring. He is it significantly improved after the bronchodilator protocol was initiated. Received oral prednisone with good improvement in aeration. Patient provided with nursing home resources given his current homeless situation. Discharged home in stable condition Differential Diagnosis Differential Diagnoses: The differential diagnosis associated with the presentation includes (as above) Admission/Observation Consideration of admission/observation: Escalation of care including admission/observation considered Lab Data [facility] Lab Attestation statement: I reviewed the patient's lab results. Labs: Lab Results 05/07/25 Range/Units 02:35 Influenza Type A (PCR) NEGATIVE (Negative) Influenza Type B (PCR) NEGATIVE (Negative) RSV RNA Qual (PCR) NEGATIVE (Negative) SARS-CoV-2 RNA (RT-PCR) NEGATIVE (Negative) Independent Interpretation I performed an independent interpretation of an: Plain X-Ray Interpretation: My independent interpretation of the chest x-ray reveals no consolidations, pulmonary edema, pleural effusion, pneumothorax, obvious bony abnormalities. Radiology Impression Discussion of test interpretation with radiology: I have reviewed the radiologist's reading. Independent Historian Clinical information obtained from an independent historian. History obtained from or confirmed by: EMS External Record Review External record reviewed: Inpatient record Prescription Management I considered prescription management with: Other (steroids, albuterol) Chronic Conditions Patient?s care impacted by: Other (asthma) Social Determinants Patient?s care significantly limited by Social Determinants of Health including: Inadequate housing and Problems related to primary support group Discharge Plan Discharge Clinical Impression: Asthma with exacerbation, Housing insecurity Patient Disposition: Home, Self-Care Instructions: Asthma (ED) Additional Instructions: If you do not have a primary care physician, please call the [facility] at [phone] to establish a new primary care physician. While waiting to establish a new primary care physician, you can call our [facility] at [phone] for non-emergency needs. Prescriptions: New albuterol sulfate 90 mcg/actuation aerosol powdr breath activated 2 inh inhalation Q4H PRN (Reason: shortness of breath) Qty: 1 0RF prednisone 50 mg tablet 50 mg PO DAILY 5 Days Qty: 5 0RF No Action prednisone 20 mg tablet 60 mg PO DAILY Qty: 12 0RF albuterol sulfate 90 mcg/actuation HFA aerosol inhaler 2 puff inhalation Q4-6H PRN (Reason: shortness of breath or wheezing) Qty: 8.5 0RF prednisone 20 mg tablet 40 mg PO DAILY Qty: 10 0RF cefuroxime axetil 500 mg tablet 500 mg PO BID 7 Days Qty: 14 0RF albuterol sulfate 90 mcg/actuation HFA aerosol inhaler 2 puff inhalation Q6H PRN (Reason: shortness of breath or wheezing) Qty: 8.5 0RF prednisone 20 mg tablet 40 mg PO DAILY 5 Days Qty: 10 0RF albuterol sulfate 90 mcg/actuation HFA aerosol inhaler 2 puff inhalation Q4-6H PRN (Reason: shortness of breath or wheezing) Qty: 6.7 0RF albuterol sulfate 2.5 mg/0.5 mL solution for nebulization 5 mg inhalation Q4H PRN (Reason: shortness of breath or wheezing) Qty: 30 0RF albuterol sulfate 2.5 mg /3 mL (0.083 %) solution for nebulization 2.5 mg inhalation Q4-6H PRN (Reason: shortness of breath or wheezing) Qty: 90 6RF prednisone 20 mg tablet 40 mg PO DAILY Qty: 10 0RF albuterol sulfate 90 mcg/actuation HFA aerosol inhaler 2 puff inhalation Q6H PRN (Reason: shortness of breath or wheezing) Qty: 8.5 6RF montelukast [Singulair] 10 mg tablet 10 mg PO BEDTIME Qty: 90 3RF DermaPhor 44 % ointment 1 ea topical BID Qty: 228 3RF ketorolac 10 mg tablet 10 mg PO . b.i.d. PRN (Reason: pain) Qty: 10 0RF Rx Instructions: maximum total duration of 5 days from all oral, intranasal, or parenteral formulations cyclobenzaprine 10 mg tablet 10 mg PO TID PRN (Reason: muscle spasm) Qty: 10 0RF Rx Instructions: do not drive or operate machinery after taking this medication albuterol sulfate 90 mcg/actuation HFA aerosol inhaler 2 puff inhalation Q4-6H PRN (Reason: shortness of breath or wheezing) Qty: 8.5 2RF budesonide-formoterol 80-4.5 mcg/actuation HFA aerosol inhaler 2 puff inhalation BID Qty: 10.2 2RF prednisone 50 mg tablet 50 mg PO DAILY Qty: 4 0RF albuterol sulfate [Ventolin HFA] 90 mcg/actuation HFA aerosol inhaler 2 puff inhalation Q4-6H PRN (Reason: shortness of breath or wheezing) Qty: 6.7 0RF budesonide-formoterol [Symbicort] 80-4.5 mcg/actuation HFA aerosol inhaler 2 puff inhalation BID Qty: 10.2 0RF albuterol sulfate 90 mcg/actuation HFA aerosol inhaler 2 puff inhalation Q4-6H PRN (Reason: shortness of breath or wheezing) Qty: 8.5 0RF prednisone 50 mg tablet 50 mg PO DAILY 5 Days Qty: 5 0RF albuterol sulfate 90 mcg/actuation aerosol powdr breath activated 2 inh inhalation Q4H PRN (Reason: shortness of breath) Qty: 1 0RF betamethasone, augmented [Diprolene (augmented)] 0.05 % ointment 1 appl topical BID PRN (Reason: itching) Qty: 50 0RF prednisone 20 mg tablet 40 mg PO DAILY 5 Days Qty: 10 0RF Interventions: ED Discharge Assessment Last Done: 05/07/25 07:22 Discharge Date/Time: 05/07/25 07:24 Print Language: Persian
[2025-05-07] MEDS: Albuterol Sulfate 5 MG, Albuterol/Iprat 2.5/0.5MG 3 ML 3 ML INHALE (02:21)
--- OUTSIDE RECORDS SUMMARY | 2025-05-07 03:11 | XMS_ITS | Clinical Summary ---
Author Organization [employer] Address [address] [place] [address] [address] [place] [address] Care Team Providers Care Manager Database Administration Name Role Phone Unavailable Primary Care Provider [...] Blood Count 12.6(H) 4.8 - 10.8 X10*3/uL [facility] Red Blood Count 4.74 4.60 - 5.80 X10*6/uL [facility] Hemoglobin 13.5(L) 14.0 - 18.0 g/dl [facility] Hematocrit 40.3(L) 42.0 - 52.0 % [facility] Mean Corpuscular Volume 85.0 80.0 - 98.0 fL [facility] Mean Corpuscular Hemoglobin 28.5 27.0 - 33.0 pg [facility] Mean Corpuscular HGB Conc 33.5 31.0 - 36.0 g/dl [facility] Red Cell Distribution Width 13.6 11.0 - 16.0 % [facility] Platelet Count 327 160 - 400 X10*3/uL [facility] Mean Platelet Volume 9.1(L) 9.4 - 12.4 fL [facility] Neutrophils Percent Auto 61.9 45 - 73 % [facility] Imm Gran Pct Auto 0.5(H) 0.0 - 0.4 % [facility] Lymphocytes Percent Auto 18.7(L) 20 - 40 % [facility] Monocytes Percent Auto 9.5 2 - 11 % [facility] Eosinophils Percent Auto 8.7(H) 0 - 4 % [facility] Basophils Percent Auto 0.7 0 - 2 % [facility] NRBC Pct Auto 0.0 0.0 - 0.2 /100WBC [facility] Neutrophils Absolute Auto 7.8 2.0 - 8.3 x10*3/uL [facility] Imm Gran Abs Auto 0.06(H) 0.00 - 0.03 X10*3/uL [facility] Lymphocytes Absolute Auto 2.4 1.2 - 4.9 X10*3/uL [facility] Monocytes Absolute Auto 1.2 0.1 - 1.2 X10*3/uL [facility] Eosinophils Absolute Auto 1.1(H) 0.0 - 0.4 X10*3/uL [facility] Basophils Absolute Auto 0.1 0.0 - 0.2 X10*3/uL [facility] NRBC Abs Auto 0.000 0.0 - 0.012 X10*3/uL [facility] 04/06/2025 2:50 AM EDT 04/06/2025 2:54 AM EDT us Generic External Data Provider LAB BLOOD ORDERAB LES Final Result [facility] [address] [place] [address] [phone] from Last 3 Months Insurance [facility] C3
[2025-05-07 03:17] LABS: Resp Syncy Virus RNA Qual PCR NEGATIVE (Negative); SARS COV2 PCR INHOUSE NEGATIVE (Negative)
--- NOTE | 2025-05-07 03:18 | PC.NURSE ---
Resumed care of patient at 0300, he is currently resting comfortably, reporting he feels like his breathing is much better, no wheezing noted at this time. Pt brought PO intake at this time. awaiting xray results at this time. Call marie within reach.
[2025-05-07] MEDS: Albuterol Sulfate 90 MCG 8 GM INHALER 2 PUFF INHALE (07:20)
== END 2025-05-07 07:24 | disposition home or self-care (01) ==
PROVIDERS: Emergency Provider Emergency Medicine
DX: J45.901 Unspecified asthma with (acute) exacerbation (principal); R05.9 Cough, unspecified; R06.00 Dyspnea, unspecified; Z59.89 Other problems related to housing and economic circumstances; Z03.818 Encounter for observation for suspected exposure to other biological agents ruled out
CPT/HCPCS: 71046; 87637; 94640; 99285

== ENCOUNTER → 2025-05-07 02:07 | Outpatient (BNV) | payer MEDICAID, SELFPAY | PROVIDERS: Emergency Provider Emergency Medicine; Visit Provider Radiology Diagnostic Radiology | DX: R05.9 Cough, unspecified (principal); R06.00 Dyspnea, unspecified | CPT/HCPCS: 71046 ==

== ENCOUNTER 2025-08-03 08:27 | Inpatient (IN) | payer MEDICAID, OTHER, SELFPAY ==
--- NOTE | ~2025-08-03 | XR_ITS ---
EXAMINATION: XR CHEST CLINICAL INFORMATION: asthma, cough COMPARISON: 05/07/2025, 04/06/2025. TECHNIQUE: AP portable view of the chest was obtained. FINDINGS: The cardiac, hilar, and mediastinal contours are normal. The lungs are clear bilaterally. No pneumothorax or effusion. No focal osseous or soft tissue abnormality. XR/XR chest 1V IMPRESSION: No active pulmonary disease. Normal chest. Electronically signed by: Sal Souza MD 08/03/2025 09:12 AM EST
[2025-08-03 08:37] VITALS: PULSE 63; RESP 20; O2SAT 97
[2025-08-03] MEDS: Albuterol Sulfate 5 MG, Albuterol/Iprat 2.5/0.5MG 3 ML 3 ML INHALE (08:37)
[2025-08-03 08:44] VITALS: BP 128/74; PULSE 80; RESP 18; TEMP 36.7; O2SAT 95; BMI 35.0
--- NOTE | 2025-08-03 08:47 | ED.ASTHMA ---
HPI - Asthma General Chief Complaint: Dyspnea Stated Complaint: SOB X3D,WHEEZE,WORK TO BREATH,92% RA Time Seen by Provider: 08/03/25 08:29 Source: patient and EMS Mode of arrival: EMS Limitations: no limitations History of Present Illness ED Provider: Samuel Stevenson PA-C HPI Narrative: 35 yo male with history of severe persistent asthma, active smoker, eczema, depression, anxiety, ADHD, hx suicide attempts in the past who presents to the ER from home for evaluation of worsening SOB, cough and wheezing for last 3 days. he recently ran out of his albuterol nebulizer treatments and inhaler. He states he had extra prednisone, took 40 mg yesterday due to worsening shortness of breath and wheezing, along w/ skin itching and ezcema. He states whenever his asthma flares up he often has severe eczema and itching as well. He states last night he was having hot flashes but denies any fever or chills. No sore throat, runny nose, URI symptoms or known sick contacts. He continues to smoke marijuana and cigarettes. 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 patient also reports in addition to his asthma complaints he has been increasingly depressed and having suicidal thoughts. He states he wants his life to just end. He states he has access to several ways to harm himself and in his life including knives and jumping out the 5th floor of his mom's apartment. He states he is homeless, unable to stay at his mom's house, often sleeping outside in the cold. He is no longer getting a social security, has no income. He has a dog and is unable to go to a detention. He states he used to be on Depakote for mood but has been off of his medications for several years. He states he was running from a lot of bad situations in his life and needed to a band and all of his medical and psychiatric doctors. MD complaint: asthma attack , shortness of breath and wheezing Onset (ago): day(s) Severity: severe and similar to prior Context: ran out of meds Associated symptoms: dry cough Related Data Current Asthma Therapy: inhaled bronchodilator, inhaled steroid and recent oral steroid Previous Rx's ?Medication ?Instructions ?Recorded albuterol sulfate 2.5 mg/0.5 mL 5 mg inhalation Q4H PRN shortness 01/13/25 solution for nebulization of breath or wheezing #30 ea albuterol sulfate 90 mcg/actuation 2 puff inhalation Q4-6H PRN 08/30/24 aerosol inhaler shortness of breath or wheezing #6.7 grams betamethasone, augmented 0.05 % 1 appl topical BID PRN itching #50 04/06/25 topical ointment (Diprolene grams (augmented)) Allergies Allergy/AdvReac Type Severity Reaction Status Date / Time shrimp (SHRIMP) Allergy Unknown SWELLING, Verified 08/03/25 08:46 SOB CHOCOLATE Allergy Unknown GAS/BLOATIN Uncoded 08/03/25 08:46 G Review of Systems Review of Systems: Yes all other systems are reviewed and are negative PMFSH Past Medical History Medical History (Updated 08/05/25 @ 00:13 by Lexi Brown NP) Asthma Social History Social History Household Members: None Housing: Homeless Do you presently have visiting nurse or other home services: No Alcohol intake: current Alcohol intake frequency: holidays/special occasions only Patient Tobacco Use Status: Current everyday Tobacco user Tobacco use type: Cigarette Cigarette Packs Per Day: 1.5 Cigarettes Per Day: 30.0 Years Smoked: 23 Smoked in Last 30 Days: Yes Patient Interested in Nicotine Replacement: Yes (patch) Patient Given Instructions on How to Stop Smoking: Yes Date Education Initiated: 08/04/25 Second Hand Smoke Exposure: No Substance Use Type: Marijuana Currently Displaying Signs/Symptoms of Drug Intoxication Withdrawal: No Have you been hit, kicked, punched, or otherwise hurt by someone within the past year? If so, by whom?: No Do you feel safe in your current relationship?: No Current Relationship Is there a partner from a previous relationship who is making you feel unsafe now?: No Are you made to feel afraid or neglected: No Spiritual Healthcare Practices: L[employer] Advance Directives: No Advance Directives Information Provided: Yes Do you have thoughts of harming others: None Do you have a plan to hurt others: No Plan Recently lost weight without trying: No Eating poorly because of decreased appetite: No Nutrition Risks: No Nutritional Risk Poor oral hygiene: No Physical Exam Vital Signs: Vital Signs: Last Vital Signs Temp 98.1 F 08/05/25 08:00 Pulse 60 08/05/25 08:00 Resp 18 08/05/25 08:00 BP 137/82 08/05/25 08:00 Pulse Ox 97 08/05/25 08:00 O2 Del Method Room Air 08/05/25 08:00 BMI result Body Mass Index 35.0 Course Reevaluation(s) Reevaluation #1: Patient re-evaluated after being given 7.5 mg nebulizer treatment. Significant improvement in his wheezing and air movement. No hypoxia. He is speaking complete sentences. He is feeling much better. He is medically cleared at this time we had long discussions about his psychiatric complaints and concerns. He would like to be seen by crisis team and a psychiatrist. He has suicidal ideation with various ways to harm himself, history of self hanging attempt and overdoses in the past. Will move the patient to the pod pending care team evaluation Time: 09:41 Reevaluation #2: Time: 05:20 Date: 08/04/25 Provider: Nathan Grimaldo MD Patient in physician observation for psychiatric evaluation.? No acute events reported overnight. No current complaints. VS stable.? Patient has been evaluated by the CARE team with plan to observe in the ED for possible step down to PHP or [facility]. Will continue to monitor. Time: 14:45 Date: 08/04/25 Provider: Nathan Grimaldo MD Physician observation ended at 14:45.Patient to be admitted as inpatient to psychiatry. Medications Administered Generic Name Dose Route Start Last Admin Trade Name Freq PRN Reason Stop Dose Admin Albuterol Sulfate 2.5 mg 08/04/25 07:14 08/04/25 07:30 Albuterol Sulfate (0.083%) 2.5 Mg/3 Ml Vial.Neb INHALE 2.5 mg Q4H PRN Administration Shortness of Breath/Wheezing Hydroxyzine HCl 25 mg 08/04/25 16:17 08/04/25 16:41 Hydroxyzine Hcl 25 Mg Tablet PO 25 mg Q6H PRN Administration mild anxiety Rea Carbonate 300 mg 08/04/25 21:00 08/05/25 09:20 Rea Carbonate Er 300 Mg Tablet.Er PO 300 mg BID ELA Administration Melatonin 6 mg 08/04/25 21:00 08/04/25 20:29 Melatonin 3 Mg Tablet PO 6 mg BEDTIME ELA Administration Nicotine 21 mg 08/05/25 09:00 08/05/25 09:18 Nicotine 21 Mg Patch.Td24 TRANSDERMA Not Given DAILY ELA Nicotine Polacrilex 4 mg 08/04/25 16:17 08/05/25 09:21 Nicotine Polacrilex 2 Mg Gum BUCCAL 4 mg Q2H PRN Administration Nicotine Cravings Prazosin HCl 1 mg 08/04/25 21:00 08/04/25 20:30 Prazosin Hcl 1 Mg Capsule PO 1 mg BEDTIME ELA Administration Protocol Prednisone 40 mg 08/04/25 09:00 08/05/25 09:21 Prednisone 20 Mg Tablet PO 08/06/25 09:00 40 mg DAILY ELA Administration Quetiapine Fumarate 100 mg 08/04/25 21:00 08/04/25 20:29 Quetiapine Fumarate 100 Mg Tablet PO 100 mg BEDTIME ELA Administration Quetiapine Fumarate 25 mg 08/04/25 17:51 08/05/25 09:20 Quetiapine Fumarate 25 Mg Tablet PO 25 mg BID PRN Administration severe anxiety/agitation Triamcinolone Acetonide 1 appl 08/03/25 11:37 08/04/25 11:47 Triamcinolone Acet 0.5 % Oint 15 Gm Tube TOPICAL 1 appl BID PRN Administration itching Discontinued Medications Generic Name Dose Route Start Last Admin Trade Name Freq PRN Reason Stop Dose Admin Albuterol Sulfate 2 puff 08/03/25 09:31 08/04/25 16:57 Albuterol Sulfate 90 Mcg 8 Gm Inhaler INHALE 2 puff Q4H PRN Administration Shortness of Breath Albuterol Sulfate 5 mg/ 0 mg 08/03/25 08:33 08/03/25 08:37 Albuterol/Ipratropium 3 ml INHALE 08/03/25 08:34 7.5 each ONCE ONE Administration Diphenhydramine HCl 50 mg 08/03/25 12:05 08/03/25 21:05 Diphenhydramine Hcl 25 Mg Capsule PO 08/03/25 12:06 Not Given ONCE ONE Hydroxyzine HCl 25 mg 08/03/25 08:33 08/03/25 09:03 Hydroxyzine Hcl 25 Mg Tablet PO 08/03/25 08:34 25 mg ONCE ONE Administration Ibuprofen 600 mg 08/03/25 11:09 08/03/25 11:15 Ibuprofen 600 Mg Tablet PO 08/03/25 11:10 600 mg ONCE ONE Administration Methylprednisolone Sodium Succinate 40 mg 08/03/25 08:33 08/03/25 09:02 Methylprednisolone Sod Succ 40 Mg/Ml Vial IVPUSH 08/03/25 08:34 40 mg ONCE ONE Administration Nicotine Polacrilex 2 mg 08/04/25 11:12 08/04/25 11:18 Nicotine Polacrilex 2 Mg Gum BUCCAL 2 mg Q2H PRN Administration Nicotine Cravings Medical Decision Making Medical Decision Making [facility] Narrative: 55-year-old male with a history of severe, persistent asthma, history of depression, anxiety, PTSD, prior suicide attempts in the past presenting to the ER for evaluation of asthma symptoms for the last couple of days in the setting of running out of his inhaler and nebulizer along with worsening depression and suicidal ideation. Patient SpO2 92 for EMS, given nebulizer treatment and improved sats to high 90s. On arrival to the ER he is not in any respiratory distress, speaking in complete sentences. He has inspiratory and expiratory wheezes throughout with good air movement. ED bronchodilator protocol ordered, IV steroids ordered. CXR clear. viral swab negative re-evaluated after neb, much improved wheezing and aeration. feeling much better breathing denney he is very depressed w/ active suicidial thoguhts. medically cleared for CARE team to see him. will go to pod. PRN nebs and albuterol ordered. will start prednisone for tomorrow as well. Differential Diagnosis Differential Diagnoses: The differential diagnosis associated with the presentation includes asthma exacerbation due to med noncompliance, IgE asthma, viral URI, PNA, substance induced mood disorder, acute psychosis, schizophrenia, schizoaffective disorder, PTSD, bipolar disorder, major depression with psychotic features Admission/Observation Consideration of admission/observation: Escalation of care including admission/observation considered Lab Data [facility] Lab Attestation statement: I reviewed the patient's lab results. Leukocytosis likely due to steroids, no major metabolic derangement 08/03/25 08:49 08/05/25 07:28 Labs: Lab Results 08/03/25 08/03/25 08/03/25 Range/Units 08:49 08:56 11:53 WBC 13.7 H (4.8-10.8) X10*3/uL RBC 5.02 (4.60-5.80) X10*6/uL Hgb 13.9 L (14.0-18.0) g/dl Hct 43.1 (42.0-52.0) % MCV 85.9 (80.0-98.0) fL MCH 27.7 (27.0-33.0) pg MCHC 32.3 (31.0-36.0) g/dl RDW 13.3 (11.0-16.0) % Plt Count 322 (160-400) X10*3/uL MPV 9.2 L (9.4-12.4) fL Immature Gran % (Auto) 0.4 (0.0-0.4) % Neut % (Auto) 64.8 (45-73) % Lymph % (Auto) 23.5 (20-40) % [place] % (Auto) 8.9 (2-11) % Eos % (Auto) 2.0 (0-4) % Baso % (Auto) 0.4 (0-2) % Lymph # (Auto) 3.2 (1.2-4.9) X10*3/uL [place] # (Auto) 1.2 (0.1-1.2) X10*3/uL Eos # (Auto) 0.3 (0.0-0.4) X10*3/uL Baso # (Auto) 0.1 (0.0-0.2) X10*3/uL Abs Immat Gran (auto) 0.06 H (0.00-0.03) X10*3/uL Absolute Neuts (auto) 8.9 H (2.0-8.3) x10*3/uL Absolute Nucleated RBC 0.000 (0.0-0.012) X10*3/uL Nucleated RBC % (auto) 0.0 (0.0-0.2) /100WBC VBG pH 7.46 H (7.32-7.43) VBG pCO2 37 mmHg VBG pO2 162 mmHg VBG HCO3 27 H (22-26) mmol/L VBG O2 Saturation 99.0 % VBG Base Excess 3.5 mmol/L Sodium 143 (135-145) mmol/L Potassium 3.3 (3.3-5.1) mmol/L Chloride 107 (96-108) mmol/L Carbon Dioxide 26 (22-29) mmol/L Anion Gap 13 (12-20) BUN 21 H (9-16) mg/dL Creatinine 0.78 (0.5-1.4) mg/dL Estim Creat Clear Calc 139.0 Estimated GFR > 60 Random Glucose 98 (60-115) mg/dL Calcium 9.2 (8.4-10.2) mg/dL Magnesium 2.1 (1.6-2.6) mg/dL Total Bilirubin 0.3 (0.0-1.0) mg/dL Direct Bilirubin 0.1 (0.0-0.5) mg/dL AST 22 (5-37) U/L ALT 28 (0-40) U/L Alkaline Phosphatase 67 (39-117) U/L Total Protein 6.9 (6.5-8.0) g/dL Albumin 4.6 (3.5-5.0) g/dL Urine Color Yellow Urine Appearance Cloudy Urine pH 5.5 (5.0-9.0) Ur Specific [place] >= 1.030 H (1.005-1.025) Urine Protein Negative (Neg-Trace) mg/dL Urine Glucose (UA) 500 H (Negative) mg/dL Urine Ketones Trace (Negative) mg/dL Urine Blood Trace H (Negative) Urine Nitrite Negative (Negative) Ur Leukocyte Esterase Negative (Negative) Urine RBC 0-2 (0-2) /HPF Urine WBC 0-5 (0-5) /HPF Ur Squamous Epith Cells 0-2 (0-2) /HPF Urine Bacteria None Seen (None Seen) Hyaline Casts 0-2 (0-2) /LPF Salicylates < 5.0 L (15-30) mg/dL Urine Opiates Screen (Not Detect) Ur Buprenorphine Scrn (Not Detect) ng/mL Ur Oxycodone Screen (Not Detect) ng/mL Urine Methadone Screen (Not Detect) ng/mL Urine Fentanyl Screen (Not Detect) Acetaminophen < 3 (<30) mcg/mL Ur Barbiturates Screen (Not Detect) Ur Phencyclidine Scrn (Not Detect) Ur Amphetamines Screen (Not Detect) U Benzodiazepines Scrn (Not Detect) Urine Cocaine Screen (Not Detect) U Marijuana (THC) Screen (Not Detect) Ethyl Alcohol < 10 mg/dL Influenza Type A (PCR) NEGATIVE (Negative) Influenza Type B (PCR) NEGATIVE (Negative) RSV RNA Qual (PCR) NEGATIVE (Negative) SARS-CoV-2 RNA (RT-PCR) NEGATIVE (Negative) 08/03/25 Range/Units 11:54 WBC (4.8-10.8) X10*3/uL RBC (4.60-5.80) X10*6/uL Hgb (14.0-18.0) g/dl Hct (42.0-52.0) % MCV (80.0-98.0) fL MCH (27.0-33.0) pg MCHC (31.0-36.0) g/dl RDW (11.0-16.0) % Plt Count (160-400) X10*3/uL MPV (9.4-12.4) fL Immature Gran % (Auto) (0.0-0.4) % Neut % (Auto) (45-73) % Lymph % (Auto) (20-40) % [place]itus % (Auto) (2-11) % Eos % (Auto) (0-4) % Baso % (Auto) (0-2) % Lymph # (Auto) (1.2-4.9) X10*3/uL [place] # (Auto) (0.1-1.2) X10*3/uL Eos # (Auto) (0.0-0.4) X10*3/uL Baso # (Auto) (0.0-0.2) X10*3/uL Abs Immat Gran (auto) (0.00-0.03) X10*3/uL Absolute Neuts (auto) (2.0-8.3) x10*3/uL Absolute Nucleated RBC (0.0-0.012) X10*3/uL Nucleated RBC % (auto) (0.0-0.2) /100WBC VBG pH (7.32-7.43) VBG pCO2 mmHg VBG pO2 mmHg VBG HCO3 (22-26) mmol/L VBG O2 Saturation % VBG Base Excess mmol/L Sodium (135-145) mmol/L Potassium (3.3-5.1) mmol/L Chloride (96-108) mmol/L Carbon Dioxide (22-29) mmol/L Anion Gap (12-20) BUN (9-16) mg/dL Creatinine (0.5-1.4) mg/dL Estim Creat Clear Calc Estimated GFR Random Glucose (60-115) mg/dL Calcium (8.4-10.2) mg/dL Magnesium (1.6-2.6) mg/dL Total Bilirubin (0.0-1.0) mg/dL Direct Bilirubin (0.0-0.5) mg/dL AST (5-37) U/L ALT (0-40) U/L Alkaline Phosphatase (39-117) U/L Total Protein (6.5-8.0) g/dL Albumin (3.5-5.0) g/dL Urine Color Urine Appearance Urine pH (5.0-9.0) Ur Specific [place] (1.005-1.025) Urine Protein (Neg-Trace) mg/dL Urine Glucose (UA) (Negative) mg/dL Urine Ketones (Negative) mg/dL Urine Blood (Negative) Urine Nitrite (Negative) Ur Leukocyte Esterase (Negative) Urine RBC (0-2) /HPF Urine WBC (0-5) /HPF Ur Squamous Epith Cells (0-2) /HPF Urine Bacteria (None Seen) Hyaline Casts (0-2) /LPF Salicylates (15-30) mg/dL Urine Opiates Screen Not Detected (Not Detect) Ur Buprenorphine Scrn Not Detected (Not Detect) ng/mL Ur Oxycodone Screen Not Detected (Not Detect) ng/mL Urine Methadone Screen Not Detected (Not Detect) ng/mL Urine Fentanyl Screen Not Detected (Not Detect) Acetaminophen (<30) mcg/mL Ur Barbiturates Screen Not Detected (Not Detect) Ur Phencyclidine Scrn Not Detected (Not Detect) Ur Amphetamines Screen Not Detected (Not Detect) U Benzodiazepines Scrn Not Detected (Not Detect) Urine Cocaine Screen Not Detected (Not Detect) U Marijuana (THC) Screen POSITIVE H (Not Detect) Ethyl Alcohol mg/dL Influenza Type A (PCR) (Negative) Influenza Type B (PCR) (Negative) RSV RNA Qual (PCR) (Negative) SARS-CoV-2 RNA (RT-PCR) (Negative) Independent Interpretation I performed an independent interpretation of an: Plain X-Ray Interpretation: No focal opacity Radiology Impression Discussion of test interpretation with radiology: I have reviewed the radiologist's reading. Independent Historian Clinical information obtained from an independent historian. History obtained from or confirmed by: EMS External Record Review External record reviewed: Outpatient record, Prior outpatient labs and Prior outpatient radiology Prescription Management I considered prescription management with: Pain Medication, Antiviral, Antibiotic and Other (Steroids, bronchodilators, antipsychotic, anxiolytic) Chronic Conditions Patient?s care impacted by: Other (Asthma, depression) Social Determinants Patient?s care significantly limited by Social Determinants of Health including: Inadequate housing, Problems related to primary support group and Other Social Determinant of Health Discharge Plan Discharge Clinical Impression: Asthma with exacerbation, Suicidal ideation, Depression Patient Disposition: Admitted As Inpatient Interventions: Admission Worksheet (ED) Last Done: 08/04/25 14:45 Discharge Date/Time: 08/04/25 14:58
--- NOTE | 2025-08-03 08:50 | PC.NURSE ---
Pt roomed and placed on full monitor- States very itchy due to psoriasis. VSS SOB improved with TX
[2025-08-03 08:55] LABS: MANUAL DIFF FLAG NO
[2025-08-03 08:57] LABS: Hematocrit 43.1 % (42.0-52.0); Hemoglobin 13.9 g/dl (14.0-18.0); Imm Gran Abs Auto 0.06 X10*3/uL (0.00-0.03); Imm Gran Pct Auto 0.4 % (0.0-0.4); Lymphocytes Absolute Auto 3.2 X10*3/uL (1.2-4.9); Mean Corpuscular HGB Conc 32.3 g/dl (31.0-36.0); Mean Corpuscular Hemoglobin 27.7 pg (27.0-33.0); Mean Corpuscular Volume 85.9 fL (80.0-98.0); NRBC Abs Auto 0.000 X10*3/uL (0.0-0.012); NRBC Pct Auto 0.0 /100WBC (0.0-0.2); Platelet Count 322 X10*3/uL (160-400); Red Blood Count 5.02 X10*6/uL (4.60-5.80); White Blood Count 13.7 X10*3/uL (4.8-10.8)
[2025-08-03 09:02] LABS: VBG HCO3 27 mmol/L (22-26); VBG O2 % Saturation 99.0 %
[2025-08-03 09:03] LABS: Venous Blood Gas Refer to POC result
--- NOTE | 2025-08-03 09:18 | PC.NURSE ---
Pt asking for Psych consut. States he has no specific suicide plan but states I have many ways also states he has tried to hurt self recently but thinking of his mother and how messed up she would be stops him. He is tearful and states his home is so depressing he just wants to end it Provider aware.
[2025-08-03 09:25] LABS: Alanine Aminotransferase 28 U/L (0-40); Albumin Level 4.6 g/dL (3.5-5.0); Alkaline Phosphatase 67 U/L (39-117); Anion Gap 13 (12-20); Aspartate Amino Transferase 22 U/L (5-37); Blood Urea Nitrogen 21 mg/dL (9-16); Calcium 9.2 mg/dL (8.4-10.2); Carbon Dioxide 26 mmol/L (22-29); Chloride 107 mmol/L (96-108); Creatinine Clr Calc Pharmacy 139.0; Estimated Glomerular Filt Rate > 60; Magnesium 2.1 mg/dL (1.6-2.6); Potassium 3.3 mmol/L (3.3-5.1); Sodium 143 mmol/L (135-145); Total Protein 6.9 g/dL (6.5-8.0)
[2025-08-03 09:35] LABS: Resp Syncy Virus RNA Qual PCR NEGATIVE (Negative); SARS COV2 PCR INHOUSE NEGATIVE (Negative)
--- OUTSIDE RECORDS SUMMARY | 2025-08-03 09:52 | XMS_ITS | Clinical Summary ---
Author Organization [employer] Address [address] [place] [address] [address] [place] [address] Care Team Providers Care Cadmium Burner Name Role Phone Unavailable Primary Care Provider Unavailabl e Allergies No known active allergies Medications albuterol (2.5 MG/3ML) 0.083% nebulizer solution Take 3 mL (2.5 mg) by nebulization every 4 (four) hours if needed for wheezing or shortness of breath. 75 mL 1 Active cetirizine (ZyrTEC) 10 MG tablet Take 1 tablet (10 mg) by mouth Once per day. 90 tablet 3 025 2025 Active diphenhydrAMINE (BENADryl) 25 MG tablet Take 1 tablet (25 mg) by mouth every 6 (six) hours if needed for itching. 30 tablet 1 Active Emollient (CeraVe Moisturizing) cream MIX 80 G OF TAC CREAM INTO 340 G CERAVE CREAM AND APPLY TOPICALLY TO BODY TWICE A DAY 340 g 3 Active predniSONE (Deltasone) 20 MG tablet Take 3 tabs PO daily x 3 days then take 2 tabs PO daily x 3 days then take 1 tab PO daily x 3 days 18 tablet 025 Active triamcinolone (Kenalog) 0.1 % cream MIX 80 G OF TAC CREAM INTO 340 G CERAVE CREAM AND APPLY TOPICALLY TO BODY TWICE A DAY 80 g 3 025 Active betamethasone, augmented, (Diprolene) 0.05 % ointmentIndicat ions:Moderate asthma, unspecified whether complicated, unspecified whether persistent Apply topically 2 times daily. 15 g Active ibuprofen 800 MG tabletIndicatio ns:Moderate asthma, unspecified whether complicated, unspecified whether persistent Take 1 tablet (800 mg) by mouth 3 times daily. 90 tablet 025 2024 Active budesonide-form oterol (Symbicort) 160-4.5 MCG/ACT inhalerIndicati ons:Moderate asthma, unspecified whether complicated, unspecified whether persistent Inhale 2 puffs in the morning and at bedtime. Rinse mouth with water after use to reduce aftertaste and incidence of candidiasis. Do not swallow. 3 each 3 025 2025 Active nicotine (Nicoderm CQ) 14 MG/24HR patch Place 1 patch on the skin 1 (one) time each day at the same time. 42 patch 2025 Active nicotine (Nicoderm CQ) 7 MG/24HR patch Place 1 patch on the skin 1 (one) time each day at the same time. 14 patch 2024 Active nicotine polacrilex (Commit) 2 MG lozenge Dissolve 1 lozenge (2 mg) in the mouth if needed for smoking cessation. 100 lozenge 5 4:25 PM EST 2024 Active Blood Pressure kit 1 each 1 (one) time per week. 1 kit Active albuterol 108 (90 Base) MCG/ACT inhalerIndicati ons:Moderate persistent asthma with acute exacerbation Inhale 2 puffs every 4 (four) hours if needed for wheezing or shortness of breath. 18 g 1 025 2025 Active Spacer/Aero-Hol ding Chambers (OptiChamber Marysol) misc 1 each every 4 (four) hours if needed (asthma). 2 each 5 4:25 PM EST Active Nebulizer misc 1 kit Every 4-6 hours as needed. Active albuterol 108 (90 Base) MCG/ACT inhaler Inhale 2 puffs every 4 (four) hours if needed for wheezing or shortness of breath. 18 g 1 025 2024 Discontinued(R eorder (will not trigger notification to Pharmacy)) budesonide-form oterol (Symbicort) 160-4.5 MCG/ACT inhaler Inhale 2 puffs in the morning and at bedtime. Rinse mouth with water after use to reduce aftertaste and incidence of candidiasis. Do not swallow. 3 each 3 2024 Discontinued(R eorder (will not trigger notification to Pharmacy)) Blood Pressure kit 1 each 1 (one) time per week. 1 kit 2024 Discontinued(R eorder (will not trigger notification to Pharmacy)) albuterol 108 (90 Base) MCG/ACT inhalerIndicati ons:Moderate asthma, unspecified whether complicated, unspecified whether persistent Inhale 2 puffs every 4 (four) hours if needed for wheezing or shortness of breath. 18 g 1 2024 Discontinued(R eorder (will not trigger notification to Pharmacy)) predniSONE (Deltasone) 10 MG tabletIndicatio ns:Moderate asthma, unspecified whether complicated, unspecified whether persistent Take 2 tablets (20 mg) by mouth Once per day for 10 days. 20 tablet 2024 Active Problems Problem Noted Date Diagnosed Date Tobacco dependence 07/13/2025 Homelessness 07/13/2025 Class 1 obesity 05/26/2025 Mild persistent asthma 05/26/2025 Seizure disorder ([facility]) 05/26/2025 Eczema 05/26/2024 Encounters Date Type Department Care Team Description 08/03/2025 Orders Only GENERIC EXTERNAL DATA DEPARTMENT Provider, Generic External Data 07/13/2025 2:20 PM EST Office Visit [facility] [address] [place] [phone] Mainor Rojas MD Moderate persistent asthma with acute exacerbation (Primary Dx); Tobacco dependence; Hypersomnia; Elevated blood pressure reading in office without diagnosis of hypertension; Homelessness 07/13/2025 Telephone [facility] [address] [place] [address] [phone] Mainor Rojas MD Nurse Triage 07/13/2025 Travel 07/12/2025 6:20 PM EST Office Visit [facility] [address] [place] [address] [phone] Jennings, Alexxis, CONTRACTING SPECIALIST Eczema, unspecified type (Primary Dx); Moderate asthma, unspecified whether complicated, unspecified whether persistent 07/12/2025 Travel 05/26/2025 3:00 PM EDT Office Visit [facility] [address] [place] [phone] Jen Armas DO Mild persistent asthma with acute exacerbation (Primary Dx); Elevated BP without diagnosis of hypertension; Cough in adult patient 05/26/2025 Telephone [facility] [address] [place] [phone] Jen Armas DO New Patient Appt 05/26/2025 Travel from Last 3 Months Social History Tobacco [...] Sign Reading Time Taken Comments Blood Pressure 151/91 07/13/2025 1:23 PM EST Pulse 68 07/13/2025 1:23 PM EST Temperature 37 C (98.6 F) 07/13/2025 1:23 PM EST Respiratory Rate 16 07/13/2025 1:23 PM EST Oxygen Saturation 98% 07/13/2025 1:23 PM EST Inhaled Oxygen Concentration - - Weight 93.4 kg (206 lb) 07/12/2025 5:54 PM EST Height - - Body Mass Index - - Plan of Treatment Upcoming Encounters Date Type Department Care Team (Late st Contact Info) Description 09/08/2025 9:30 AM EST Office Visit [facility] [address] [place] [phone] Idris Borjas MD [address] [place] [phone] Health Maintenance Due Date Last Done Comments [...] Male 3-dose series) 12/28/2009 11/30/2009 COVID-19 Vaccine (1 - season) 2025 Influenza Vaccine (#1) 2025 6, 09/22/2009, 07/28/2009 DTaP/Tdap/Td Vaccines (9 - Td or Tdap) 09/26/2025 09/26/2015, 03/01/2013, 07/28/2009, Additional history exists Tobacco Screening 07/13/2026 07/13/2025 Zoster Vaccines (1 of 2) 2039 RSV [...] Procedure Name Priority Date/Time Associated Diagnosis Comments VENOUS BLOOD GAS Routine 08/03/2025 8:56 AM EST XR CHEST 1 VIEW Routine 08/03/2025 8:56 AM EST MAGNESIUM Routine 08/03/2025 8:49 AM EST BASIC METABOLIC PANEL Routine 08/03/2025 8:49 AM EST HEPATIC FUNCTION PANEL Routine 08/03/2025 8:49 AM EST SARS COV2/INFLUENZA A/B AND RSV RNA QL NAAT Routine 08/03/2025 8:49 AM EST POCT COVID-19 AG CHAVEZ ID NOW Routine 07/12/2025 6:02 PM EST Moderate asthma, unspecified whether complicated, unspecified whether persistent POCT INFLUENZA B (ID NOW RAPID MOLECULAR) Routine 07/12/2025 6:00 PM EST Moderate asthma, unspecified whether complicated, unspecified whether persistent POCT INFLUENZA A (ID NOW RAPID MOLECULAR) Routine 07/12/2025 5:59 PM EST Moderate asthma, unspecified whether complicated, unspecified whether persistent POCT RAPID COVID ANTIGEN Routine 05/26/2025 3:32 PM EDT Cough in adult patient POCT INFLUENZA B (ID NOW RAPID MOLECULAR) Routine 05/26/2025 3:32 PM EDT Cough in adult patient POCT INFLUENZA A (ID NOW RAPID MOLECULAR) Routine 05/26/2025 3:32 PM EDT Cough in adult patient from Last 3 Months Results * (ABNORMAL) VENOUS BLOOD GAS (08/03/2025 8:56 AM EST) Pathologist [facility] VBG pH 7.46(H) 7.32 - 7.43 [facility] Comment:METER #: [id number] additional_comment: Chidi esthermarcus VBG PCO2 37 mmHg [facility] Comment:METER #: [id number] additional_comment: Cb esthermarciadj VBG PO2 162 mmHg [facility] Comment:METER #: [id number] additional_comment: Cb delgadj VBG Base Excess 3.5 mmol/L [facility] Comment:METER #: [id number] additional_comment: Chidi king VBG HCO3 27(H) 22 - 26 mmol/L [facility] Comment:METER #: [id number] additional_comment: Chidi king O2 Sat, Scar 99.0 % [facility] Comment:METER #: [id number] additional_comment: Chidi king 08/03/2025 8:56 AM EST 08/03/2025 9:01 AM EST us Generic External Data Provider LAB BLOOD ORDERAB LES Final Result Performing Organization Address City/State/[facility] Co de Phone Number [facility] [address] [place] [phone] * XR Chest 1 View (08/03/2025 8:56 AM EST) Anatomical Region Laterality Modality Chest Radiographic Mandy ging 08/03/2025 8:56 AM EST Narrative 08/03/2025 9:15 AM EST [address] [address] XRay Report Signed Patient: Mikal Mar Jr MR#: [id number] 348 : 1990 Acct:[id number] Age/Sex: 35 / M ADM Date: 08/03/25 Loc: .ED Attending Dr: Ordering Physician: Jen Stevenson Date of Service: 08/03/25 Procedure(s): XR chest 1V Accession Number(s): [id number] cc: [facility]; Jen Stevenson Reason for Exam: asthma, cough EXAMINATION: XR CHEST CLINICAL INFORMATION: asthma, cough COMPARISON: 05/07/2025, 04/06/2025. TECHNIQUE: AP portable view of the chest was obtained. FINDINGS: The cardiac, hilar, and mediastinal contours are normal. The lungs are clear bilaterally. No pneumothorax or effusion. No focal osseous or soft tissue abnormality. XR/XR chest 1V IMPRESSION: No active pulmonary disease. Normal chest. Electronically signed by: Sal Souza MD 08/03/2025 09:12 AM EST RP Dictated By: Sal Souza MD Signed By: <Electronically signed by Sal Souza MD in OV> 08/03/25911 DD/ 5 TD/TT: 08/03/25899 Arabic Translator: Procedure Note Donotuseinterpreter, Image - 08/03/[address] [address] XRay Report Signed Patient: Mikal Mar MR#: [id number] 348 : 1990Acct:[id number] Age/Sex: 35 / MADM Date: 08/03/25 Loc: .ED Attending Dr: Ordering Physician: Jen Stevenson Date of Service: 08/03/25 Procedure(s): XR chest 1V Accession Number(s): [id number] cc: [facility]; Jen Stevenson Reason for Exam: asthma, cough EXAMINATION: XR CHEST CLINICAL INFORMATION: asthma, cough COMPARISON: 05/07/2025, 04/06/2025. TECHNIQUE: AP portable view of the chest was obtained. FINDINGS: The cardiac, hilar, and mediastinal contours are normal. The lungs are clear bilaterally. No pneumothorax or effusion. No focal osseous or soft tissue abnormality. XR/XR chest 1V IMPRESSION: No active pulmonary disease. Normal chest. Electronically signed by: Sal Souza MD 08/03/2025 09:12 AM EST RP Dictated By: Sal Souza MD Signed By: <Electronically signed by Sal Souza MD in OV> 08/03/25911 DD/ 5 TD/TT: 08/03/25899 Arabic Translator: [facility] External Provider IMG XR PROCEDURES Final Result * SARS-CoV-2 RNA, Influenza A/B, and RSV RNA, Ql NAAT (08/03/2025 8:49 AM EST) Influenza A PCR NEGATIVE Negative [facility] Influenza B PCR NEGATIVE Negative [facility] Resp Syncy Virus RNA Qual PCR NEGATIVE Negative [facility] SARS COV2 PCR NEGATIVE Negative [facility] Comment:All test results mus t be correlated with clinical findings.Negative results do not preclude SARS-CoV2, influenza Avirus, influenza B virus and/or RSV infectionand should not be used as the sole basis for treatment orother patient management decisions. Negative results must becombined with clinical observations, patient history, andepidemiological information.This test has not been evaluated for monitoring treatment ofinfection.This test has been authorized by the FDA under an EmergencyUse Authorization (EUA) for use by authorized laboratories.Testing performed on the [employer] GeneXpert utilizingreal-time RT-PCR.All SARS CoV2 and positive influenza A/B results arereported to [facility]. 08/03/2025 8:49 AM EST 08/03/2025 8:52 AM EST Generic External Data Provider LAB MICROBIOLOGY - GENERAL ORDERABLES Final Result Performing Organization Address [facility]/ZIP Co de Phone Number [facility] [address] [place] [phone] * Magnesium (08/03/2025 8:49 AM EST) [facility] Magnesium 2.1 1.6 - 2.6 mg/dL [facility] 08/03/2025 8:49 AM EST 08/03/2025 8:52 AM EST Generic External Data Provider LAB BLOOD ORDERAB LES Final Result Performing Organization Address [facility] Co de Phone Number [facility] [address] [place] [phone] Hepatic Function Panel (08/03/2025 8:49 AM EST) Bilirubin, Total 0.3 0.0 - 1.0 mg/dL [facility] Bilirubin, Direct 0.1 0.0 - 0.5 mg/dL [facility] Aspartate Amino Transferase 22 5 - 37 U/L [facility] Alanine Aminotransferase 28 0 - 40 U/L [facility] Total Protein 6.9 6.5 - 8.0 g/dL [facility] Albumin Level 4.6 3.5 - 5.0 g/dL [facility] Alkaline Phosphatase 67 39 - 117 U/L [facility] 08/03/2025 8:49 AM EST 08/03/2025 8:52 AM EST us Generic External Data Provider LAB BLOOD ORDERAB LES Final Result [facility] [address] [place] [phone] * (ABNORMAL) Basic Metabolic Panel (08/03/2025 8:49 AM EST) Sodium 143 135 - 145 mmol/L [facility] Potassium 3.3 3.3 - 5.1 mmol/L [facility] Chloride 107 96 - 108 mmol/L [facility] Carbon Dioxide 26 22 - 29 mmol/L [facility] Anion Gap 13 12 - 20 [facility] Urea Nitrogen (BUN) 21(H) 9 - 16 mg/dL [facility] Creatinine, Serum 0.78 0.5 - 1.4 mg/dL [facility] Creatinine Clr Calc Pharmacy 139.0 [facility] Comment:eGFR (calculated fro m the MDRD study equation) and eCrCl(calculated from the Cockcroft-Gault equation) are based ondifferent parameters and may not yield comparable results.If eCrCl result is absurd, please check patient'sheight/weight. Estimated Glomerular Filt Rate >60 [facility] Comment:Chronic Kidney Disea se: Estimated GFR < 60 mL/min/1.12k2Iaspzg Kidney Disease: Estimated GFR < 15 mL/min/1.73m2 Glucose 98 60 - 115 mg/dL [facility] Calcium 9.2 8.4 - 10.2 mg/dL [facility] 08/03/2025 8:49 AM EST 08/03/2025 8:52 AM EST [facility] External Data Provider LAB BLOOD ORDERAB LES Final Result Performing Organization Address [facility] Co de Phone Number [facility] [address] [place] [phone] * POCT COVID-19 Ag Chavez ID NOW (07/12/2025 6:02 PM EST) Coronavirus Antigen PCR Negative Negative, Indeterminate, None Detected, Trace, 3+, Specimen unsatisfactory for evaluation, Weakly Positive, 1+, 2+ QC Media Lot # [id number] Lot# Expiration Date Swab 07/12/2025 6:02 PM EST Result [facility] POINT OF CARE TEST ENTER/ EDIT ORDERABLES Final Result * Influenza B (ID NOW Rapid Molecular) (07/12/2025 6:00 PM EST) Only the most recent of2 resultswithin the time period is included. Influenza B Negative Negative, Indeterminate [facility] QC Media Lot # [id number] [facility] Lot# Expiration Date [facility] Swab 07/12/2025 6:00 PM EST [facility] POINT OF CARE TEST ENTER/ EDIT ORDERABLES Final Result Performing Organization Address City/[facility]/ZIP Co de Phone Number [facility] [address] [place] [phone] * Influenza A (ID NOW Rapid Molecular) (07/12/2025 5:59 PM EST) Only the most recent of2 resultswithin the time period is included. Influenza A Negative Negative, Indeterminate [facility] QC Media Lot # [id number] [facility] Lot# Expiration Date [id number] [facility] Swab 07/12/2025 5:59 PM EST Bowen Jennings CONTRACTING SPECIALIST POINT OF CARE TEST ENTER/ EDIT ORDERABLES Final Result [facility] [address] [place] [phone] * POCT Rapid COVID Ag (05/26/2025 3:32 PM EDT) Rapid COVID Ag Negative Swab 05/26/2025 3:32 PM EDT Jen Armas DO POINT OF CARE TEST ENTER/TIM T ORDERABLES Final Result from Last 3 Months Insurance [address] [place] [address] [facility] C[facility]
--- OUTSIDE RECORDS SUMMARY | 2025-08-03 09:52 | XMS_ITS | Encounter Summary ---
Author Organization [facility] Address [address] [place] [address] [address] [place] [address] Care Team Providers Care Nurse Practitioner Per Diem Name Role Phone Unavailable Primary Care Provider Unavailabl e Encounter Details Date Type Department Care Team (Late st Contact Info) Description 08/03/2025 Orders Only GENERIC EXTERNAL DATA DEPARTMENT Provider, Generic External Data Social History Tobacco Use Types Packs/Day Years Used Date Smoking Tobacco: Every Day Cigarettes Smokeless Tobacco: Never Alcohol Use Standard Drinks/Week Comments Yes 0 (1 standard drink = 0.6 oz pur e alcohol) Sex and Gender Information Value Date Recorded Sex Assigned at Male 04/09/2024 4:03 PM EDT Legal Sex Male 4:01 PM EDT Gender Identity Male 04/09/2024 4:03 PM EDT Sexual Orientation Straight 04/09/2024 4: 03 PM EDT documented as of this encounter Plan of Treatment Upcoming Encounters Date Type Department Care Team (Late Contact Info) Description 09/08/2025 9:30 AM EST Office Visit [facility] [address] [place] [address] Idris Borjas MD [address] [place] [address] documented as of this encounter Procedures Procedure Name Priority Date/Time Associated Diagnosis Comments VENOUS BLOOD GAS Routine 08/03/2025 8:56 AM EST XR CHEST 1 VIEW Routine 08/03/2025 8:56 AM EST SARS COV2/INFLUENZA A/B AND RSV RNA QL NAAT Routine 08/03/2025 8:49 AM EST MAGNESIUM Routine 08/03/2025 8:49 AM EST HEPATIC FUNCTION PANEL Routine 08/03/2025 8:49 AM EST BASIC METABOLIC PANEL Routine 08/03/2025 8:49 AM EST documented in this encounter Results * (ABNORMAL) VENOUS BLOOD GAS (08/03/2025 8:56 AM EST) VBG pH 7.46(H) 7.32 - 7.43 [facility] Comment:METER #: [id number] additional_comment: Cb delgadj VBG PCO2 37 mmHg [facility] Comment:METER #: [id number] additional_comment: Cb delgadj VBG PO2 162 mmHg [facility] Comment:METER #: [id number] additional_comment: Cb delgadj VBG Base Excess 3.5 mmol/L [facility] Comment:METER #: [id number] additional_comment: Cb delgadj VBG HCO3 27(H) 22 - 26 mmol/L [facility] Comment:METER #: [id number] additional_comment: Cb esthergadj O2 Sat, Scar 99.0 % [facility] Comment:METER #: [id number] additional_comment: Cb joridjason 08/03/2025 8:56 AM EST 08/03/2025 9:01 AM EST us Generic External Data Provider LAB BLOOD ORDERAB LES Final Result [facility] [address] [place] [phone] * XR Chest 1 View (08/03/2025 8:56 AM EST) Anatomical Region Laterality Modality Chest Radiographic Mandy ging 08/03/2025 8:56 AM EST Narrative 08/03/2025 9:15 AM EST [address] [address] XRay Report Signed Patient: Mikal Mar Jr MR#: [id number] : 1990 Acct:[id number] Age/Sex: 35 / M ADM Date: 08/03/25 Loc: HO.ED Attending Dr: Ordering Physician: Jen Stevenson Date of Service: 08/03/25 Procedure(s): XR chest 1V Accession Number(s): [id number] cc: [facility]; Jen Stevenson Reason for Exam: asthma, [...] disease. Normal chest. Electronically signed by: Sal Sozua MD 08/03/2025 09:12 AM EST Dictated By: Sal Souza MD Signed By: <Electronically signed by Sal Souza MD in OV> 08/03/25 0912 DD/ 0856 TD/TT: 08/03/25 0900 Jumpbasting Collar Baster: Procedure Note Donotuseinterpreter, Image - 08/03/2025 [place] [address] XRay Report Signed Patient: Mikal Mar JrMR#: [id number] : 1990Acct:[id number] Age/Sex: 35 / MADM Date: 08/03/25 Loc: HO.ED Attending Dr: Ordering Physician: Jen Stevenson Date of Service: 08/03/25 Procedure(s): XR chest 1V Accession Number(s): [id number] cc: [facility]; Jen Stevenson Reason for Exam: asthma, [...] Sal Souza MD 08/03/2025 09:12 AM EST Dictated By: Sal Souza MD Signed By: <Electronically signed by Sal Souza MD in OV> 08/03/2512 DD/ 0856 TD/TT: 08/03/25 09 Jumpbasting Collar Baster: [facility] External Provider IMG XR PROCEDURES Final Result * SARS-CoV-2 RNA, Influenza A/B, and RSV RNA, Ql NAAT (08/03/2025 8:49 AM EST) Influenza A PCR NEGATIVE Negative [facility] Influenza B PCR NEGATIVE Negative [facility] Resp Syncy Virus RNA Qual PCR NEGATIVE Negative [facility] SARS COV2 PCR NEGATIVE Negative [facility] Comment:All test results mus t be [...] use by authorized laboratories.Testing performed on the [employer] GeneXpert utilizingreal-time RT-PCR.All SARS CoV2 and positive influenza A/B results arereported to [facility]. 08/03/2025 8:49 AM EST 08/03/2025 8:52 AM EST Generic External Data Provider LAB MICROBIOLOGY - GENERAL ORDERABLES Final Result [facility] [address] [place] [phone] * Magnesium (08/03/2025 8:49 AM EST) Magnesium 2.1 1.6 - 2.6 mg/dL [facility] 08/03/2025 8:49 AM EST 08/03/2025 8:52 AM EST us Generic External Data Provider LAB BLOOD ORDERAB LES Final Result [facility] [address] [place] [phone] * (ABNORMAL) Basic Metabolic Panel (08/03/2025 8:49 AM EST) Pathologist [facility] Sodium 143 135 - 145 mmol/L [facility] Potassium 3.3 3.3 - 5.1 mmol/L [facility] Chloride 107 96 - 108 mmol/L [facility] Carbon Dioxide 26 22 - 29 mmol/L [facility] Anion Gap 13 12 - 20 [facility] Urea Nitrogen (BUN) 21(H) 9 - 16 mg/dL [facility] Creatinine, Serum 0.78 0.5 - 1.4 mg/dL [facility] Creatinine Clr Calc Pharmacy 139.0 [facility] Comment:eGFR (calculated fro m the MDRD study equation) and eCrCl(calculated from the Cockcroft-Gault equation) are based ondifferent parameters and may not yield comparable results.If eCrCl result is absurd, please check patient'sheight/weight. Estimated Glomerular Filt Rate >60 [facility] Comment:Chronic Kidney Disea se: Estimated GFR < 60 mL/min/1.42l8Ciuxwg Kidney Disease: Estimated GFR < 15 mL/min/1.73m2 Glucose 98 60 - 115 mg/dL [facility] Calcium 9.2 8.4 - 10.2 mg/dL [facility] 08/03/2025 8:49 AM EST 08/03/2025 8:52 AM EST us Generic External Data Provider LAB BLOOD ORDERAB LES Final Result Performing Organization Address [facility] Co de Phone Number [facility] [address] [place] [address] [phone] * Hepatic Function Panel (08/03/2025 8:49 AM EST) Bilirubin, Total 0.3 0.0 - 1.0 mg/dL [facility] Bilirubin, Direct 0.1 0.0 - 0.5 mg/dL [facility] Aspartate Amino Transferase 22 5 - 37 U/L [facility] Alanine Aminotransferase 28 0 - 40 U/L [facility] Total Protein 6.9 6.5 - 8.0 g/dL [facility] Albumin Level 4.6 3.5 - 5.0 g/dL [facility] Alkaline Phosphatase 67 39 - 117 U/L [facility] 08/03/2025 8:49 AM EST 08/03/2025 8:52 AM EST us Generic External Data Provider LAB BLOOD ORDERAB LES Final Result Performing Organization Address [facility]/ZIP Co de Phone Number [facility] [address] [place] [address] [phone] documented in this encounter Visit Diagnoses Not on filedocumented in this encounter
--- OUTSIDE RECORDS SUMMARY | 2025-08-03 09:52 | XMS_ITS | Clinical Summary ---
Author Organization [facility] Address [facility] [place] [address] Care Team Providers Care Asphalt Worker Name Role Phone None Primary Care Provider Unavailabl e Allergies No known active allergies Medications albuterol 90 mcg/actuation HFA Aerosol Inhaler Inhale 1-2 puffs into the lungs every 4 hours as needed for Wheezing, Shortness of Breath or Cough. With spacer 1 Inhaler 9 Active albuterol (PROVENTIL) 5 mg/mL Solution for Nebulization Take 0.5 mLs by nebulization every 6 hours as needed for Wheezing. 30 ampule 9 Active levETIRAcetam (KEPPRA) 500 mg Tablet Take 1 tablet by mouth 2 times daily. 60 tablet 9 Active Social History Tobacco Use Types Packs/Day Years Used Date Smoking Tobacco: Every Day Cigarettes Smokeless Tobacco: Never Alcohol Use Standard Drinks/Week Comments Never 0 (1 standard drink = 0.6 oz pur e alcohol) Sex and Gender Information Value Date Recorded Sex Assigned at Not on file Legal Sex Male 12:31 PM EST Gender Identity Not on file Sexual Orientation Not on file Last Filed Vital Signs Vital Sign Reading Time Taken Comments Blood Pressure 114/72 07/27/2019 2:30 PM EST Pulse 50 07/27/2019 2:30 PM EST Temperature 36.4 C (97.6 F) 07/27/2019 2:30 PM EST Respiratory Rate 16 07/27/2019 2:30 PM EST Oxygen Saturation 96% 07/27/2019 2:30 PM EST Inhaled Oxygen Concentration - - Weight - - Height - - Body Mass Index - - Plan of Treatment Health Maintenance Due Date Last Done Comments HIV screen 2007 Hepatitis C Screening 2007 Lipid Screening 2007 Hepatitis B vaccine (0-59 yrs) and Risk (1) 02/28/2008 Tetanus/Diphtheria/Pertussis Vaccines (1 - Tdap) 02/27 Covid-19 Vaccine (1 - 2024- season) 2025 Influenza (Flu) vaccine (1 o f 1 - Influenza standard series) 04/18/2025 Insurance [place]ICAID [place] O[place] Care Teams Asphalt Worker Relationship Specialty Start Date End Date None None PCP - General 07/27/19
--- NOTE | 2025-08-03 09:55 | PC.NURSE ---
Pt IV removed, crisis changeover and brought to POD
--- NOTE | 2025-08-03 10:00 | PC.NURSE ---
Report Called to Juany BARROSO in POD
--- NOTE | 2025-08-03 10:09 | MHC.EDTECH ---
Patient currently wearing boxer shorts due to mesh underwear being bad for his eczema. Patient provided with knit underwear pants in place of mesh underwear, patient is agreeable to these undergarments and the plan is for him to change into underwear when he needs to use the bathroom. Rn aware of plan and agreeable.
--- NOTE | 2025-08-03 11:30 | PC.NURSE ---
Pt is calm and cooperative since arriving to the POD, No SOB, cough or EMERITA. Pt with much complaints of his skin itiching, chronic. Provider made aware and cream is orderded.
--- NOTE | 2025-08-03 11:33 | ECG_ITS ---
Test Reason : MEDICAL CLEARNACE Blood Pressure : */* mmHG Vent. Rate : 73 BPM Atrial Rate : 73 BPM P-R Int : 152 ms QRS Dur : 114 ms QT Int : 388 ms P-R-T Axes : 45 52 11 degrees QTcB Int : 427 ms Sinus rhythm with Premature atrial complexes with Aberrant conduction Otherwise normal ECG When compared with ECG of 07-Nov-2024 01:47, Aberrant conduction is now Present Referred By: Jen Stevenson Electronically Signed By: Buzz Mccormick
[2025-08-03 12:03] LABS: Appearance Urine Cloudy; Glucose Urine UA 500 mg/dL (Negative); PH 5.5 (5.0-9.0); Specific Gravity - Urine >= 1.030 (1.005-1.025); UMIC TRIGGER UACC YES
[2025-08-03 12:11] LABS: Cannabinoid Screen Urine POSITIVE (Not Detect)
[2025-08-03 12:17] LABS: Acetaminophen LAB < 3 mcg/mL (<30); Salicylate < 5.0 mg/dL (15-30)
--- NOTE | 2025-08-03 13:55 | MHC.CARE ---
Patient assessed by CARE team, at time of this writing he is agreeable to IPLOC.
--- NOTE | 2025-08-03 18:11 | PC.NURSE ---
Pt has been resting all shift. His skin itching has decreased. Safety is maintained.
[2025-08-04] VITALS (7 sets, daily range): BP systolic 121–151; BP diastolic 71–95; PULSE 57–71; RESP 16–22; TEMP 36.4–37.1; O2SAT 96–99; BMI 33.0
--- NOTE | 2025-08-04 01:01 | PC.NURSE ---
placed pts cream in pyxis in pt specific bin.
[2025-08-04] MEDS: Albuterol Sulfate 90 MCG 8 GM INHALER 2 PUFF INHALE ×2 (07:09→16:57)
--- NOTE | 2025-08-04 07:16 | PC.NURSE ---
Assumed care of patient at 0645, patient appears to be short of breath this morning, requesting breathing treatment. vital signs stable at this time, pt received PRN Albuterol inhaler, respiratory at bedside at this time to do duo neb treatment. 1:1 present at bedside due to strangulation risk. Pt isolated to room due to aerosolized particles. Patient is calm and cooperative, offering no complaints to this RN besides shortness of breath. Patient aware of plan of care for IPLOC
--- NOTE | 2025-08-04 07:28 | ECG_ITS ---
Test Reason : qrs Blood Pressure : */* mmHG Vent. Rate : 68 BPM Atrial Rate : 68 BPM P-R Int : 154 ms QRS Dur : 116 ms QT Int : 392 ms P-R-T Axes : 62 61 31 degrees QTcB Int : 416 ms Normal sinus rhythm with sinus arrhythmia Normal ECG When compared with ECG of 03-Aug-2025 12:31, No significant changes seen Referred By: Nathan Grimaldo Electronically Signed By: Buzz Mccormick
[2025-08-04] MEDS: Albuterol Sulfate (0.083%) 2.5 MG/3 ML VIAL.NEB INHALE (07:30)
[2025-08-04] MEDS: Triamcinolone Acet 0.5 % Oint 15 GM TUBE 1 APPL TOPICAL (11:47)
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
--- NOTE | 2025-08-04 18:04 | PC.NURSE ---
Patient was offered and refused the flu vaccine.
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
[2025-08-05 08:00] VITALS: BP 137/82; PULSE 60; RESP 18; TEMP 36.7; O2SAT 97
[2025-08-05 08:00] LABS: Alanine Aminotransferase 28 U/L (0-40); Albumin Level 4.8 g/dL (3.5-5.0); Alkaline Phosphatase 62 U/L (39-117); Anion Gap 13 (12-20); Aspartate Amino Transferase 26 U/L (5-37); Blood Urea Nitrogen 23 mg/dL (9-16); Calcium 9.6 mg/dL (8.4-10.2); Carbon Dioxide 29 mmol/L (22-29); Chloride 105 mmol/L (96-108); Cholesterol 196 mg/dL (<200); Creatinine Clr Calc Pharmacy 129.9; Estimated Glomerular Filt Rate > 60; HDL Cholesterol 48 mg/dL (>40); Potassium 3.6 mmol/L (3.3-5.1); Sodium 143 mmol/L (135-145); Total Protein 7.2 g/dL (6.5-8.0); Triglycerides 240 mg/dL (<150)
--- NOTE | 2025-08-05 08:32 | P.CONHOSP_ITS ---
History of Present Illness Data of Consult Service Date: 08/05/25 Primary Care Provider: [facility] Reason for consult: Medical consult 35-year-old male with a past medical history of asthma, tobacco use, eczema, depression, anxiety, ADHD, PTSD, bipolar disorder and suicidal ideation presented to the ED for worsening cough shortness of breath and wheezing. In addition patient reports that he has been more depressed and having suicidal thoughts with a plan to jump out of the window. Complicated by homelessness. In the ED he received steroids and oxygen, mild leukocytosis likely due to steroids, no anemia. Blood gases normal, electrolytes within normal limits, no evidence of renal or liver dysfunction. Urine without evidence of infection. Tox screen negative. Negative flu and COVID. On exam patient reports that he has severe eczema on his back and arms. Patient reports that he does not have a primary care doctor and has not follow up with anyone, reports that he consistently comes to the ED for treatment. He reports shortness of breath not increased from his baseline. Denies any chest pain, abdominal pain, nausea vomiting or diarrhea. Review of Systems 2 Review of Systems: Patient has no acute medical complaints at this time All other systems are reviewed and are negative [facility] Medical History (Updated 08/05/25 @ 15:30 by Karen Burr DNP) Asthma Social History Household Members: None Housing: Homeless Do you presently have visiting nurse or other home services: No Alcohol intake: current Alcohol intake frequency: holidays/special occasions only Patient Tobacco Use Status: Current everyday Tobacco user Tobacco use type: Cigarette Cigarette Packs Per Day: 1.5 Cigarettes Per Day: 30.0 Years Smoked: 23 Smoked in Last 30 Days: Yes Patient Interested in Nicotine Replacement: Yes (patch) Patient Given Instructions on How to Stop Smoking: Yes Date Education Initiated: 08/04/25 Second Hand Smoke Exposure: No Substance Use Type: Marijuana Currently Displaying Signs/Symptoms of Drug Intoxication Withdrawal: No Have you been hit, kicked, punched, or otherwise hurt by someone within the past year? If so, by whom?: No Do you feel safe in your current relationship?: No Current Relationship Is there a partner from a previous relationship who is making you feel unsafe now?: No Are you made to feel afraid or neglected: No Spiritual Healthcare Practices: Voodoo Advance Directives: No Advance Directives Information Provided: Yes Do you have thoughts of harming others: None Do you have a plan to hurt others: No Plan Recently lost weight without trying: No Eating poorly because of decreased appetite: No Nutrition Risks: No Nutritional Risk Poor oral hygiene: No service: No Sexual orientation: Straight/Heterosexual Meds Allergies Allergy/AdvReac Type Severity Reaction Status Date / Time shrimp (SHRIMP) Allergy Unknown SWELLING, Verified 08/03/25 08:46 SOB CHOCOLATE Allergy Unknown GAS/BLOATIN Uncoded 08/03/25 08:46 G Active Medications: Current Medications Acetaminophen (Acetaminophen 325 Mg Tablet) 650 mg PO Q6H PRN PRN Reason: Headache/Pain, Scale 1-10 Al Hydroxide/Mg Hydroxide (Magnesium Hydrox/Alum Hydrox 30 Ml Oral.Susp) 30 ml PO Q6H PRN PRN Reason: Heartburn/Nausea Albuterol Sulfate (Albuterol Sulfate (0.083%) 2.5 Mg/3 Ml Vial.Neb) 2.5 mg INHALE Q4H PRN PRN Reason: Shortness of Breath/Wheezing Last Admin: 08/04/25 07:30 Dose: 2.5 mg Hydroxyzine HCl (Hydroxyzine Hcl 25 Mg Tablet) 25 mg PO Q6H PRN PRN Reason: mild anxiety Last Admin: 08/04/25 16:41 Dose: 25 mg [place] Carbonate (Dorrington Carbonate Er 300 Mg Tablet.Er) 300 mg PO BID ELA Last Admin: 08/04/25 20:29 Dose: 300 mg Magnesium Hydroxide (Milk Of Magnesia 30 Ml Oral.Susp) 30 ml PO DAILY PRN PRN Reason: Constipation Melatonin (Melatonin 3 Mg Tablet) 6 mg PO BEDTIME ELA Last Admin: 08/04/25 20:29 Dose: 6 mg Nicotine (Nicotine 21 Mg Patch.Td24) 21 mg TRANSDERMA DAILY ELA Nicotine Polacrilex (Nicotine Polacrilex 2 Mg Gum) 4 mg BUCCAL Q2H PRN PRN Reason: Nicotine Cravings Last Admin: 08/04/25 18:40 Dose: 4 mg Olanzapine (Olanzapine 5 Mg Tablet) 5 mg PO Q4H PRN PRN Reason: agitation/psychosis Prazosin HCl (Prazosin Hcl 1 Mg Capsule) 1 mg PO BEDTIME ELA; Protocol Last Admin: 08/04/25 20:30 Dose: 1 mg Prednisone (Prednisone 20 Mg Tablet) 40 mg PO DAILY [facility] Stop: 08/06/25 09:00 Last Admin: 08/04/25 07:10 Dose: 40 mg Quetiapine Fumarate (Quetiapine Fumarate 50 Mg Tablet) 50 mg PO BEDTIME PRN PRN Reason: Insomnia Quetiapine Fumarate (Quetiapine Fumarate 100 Mg Tablet) 100 mg PO BEDTIME ELA Last Admin: 08/04/25 20:29 Dose: 100 mg Quetiapine Fumarate (Quetiapine Fumarate 25 Mg Tablet) 25 mg PO BID PRN PRN Reason: severe anxiety/agitation Triamcinolone Acetonide (Triamcinolone Acet 0.5 % Oint 15 Gm Tube) 1 appl TOPICAL BID PRN PRN Reason: itching Last Admin: 08/04/25 11:47 Dose: 1 appl Physical Exam 2 Vital Signs and Narrative: Vital Signs: Last Vital Signs Temp 98.7 F 08/04/25 20:00 Pulse 68 08/04/25 20:00 Resp 18 08/04/25 20:00 BP 139/88 08/04/25 20:30 Pulse Ox 97 08/04/25 20:00 O2 Del Method Room Air 08/04/25 20:00 BMI result Body Mass Index 33.0 Alert and oriented X3, calm and cooperative. Answers questions. Neuro: CN II-X11 intact, no focal neurological deficits, visual acuity intact Cardiac: S1 S2 RRR, No ectopy Pulmonary: Lung sounds with wheezes bilaterally, no increased work of breathing Abdominal: BS active in all 4 quadrants, no guarding or tenderness MSK: Strength 5/5 upper and lower extremities : Deferred Extremities: No edema in lower extremities Psych: Quiet and cooperative. Skin: Warm and dry, Intact. Dry red patch areas to back and arms Results Labs 08/03/25 08:49 08/05/25 07:28 Labs: Laboratory Results - last 24 hr 08/05/25 07:28 Anion Gap 13 Estim Creat Clear Calc 129.9 Estimated GFR > 60 Random Glucose 123 H Estimat Average Glucose 108 Hemoglobin A1c % 5.4 Calcium 9.6 Total Bilirubin 0.6 AST 26 ALT 28 Alkaline Phosphatase 62 Total Protein 7.2 Albumin 4.8 Triglycerides 240 H Cholesterol 196 LDL Cholesterol, Calc 100 H HDL Cholesterol 48 Assessment and Plan (1) Moderate persistent asthma: Status: Acute Plan 35-year-old male with past medical history as listed below presented to the ED with suicide ideation and increased depression, complicated by homelessness. He is now admitted for stabilization. Bipolar disorder/PTSD/ADHD Treatment per psychiatric team Moderate persistent asthma Breo daily Albuterol as needed Continue Prednisone Burst for 3 more days. Montelukast at HS Eczema Triamcinolone cream b.i.d. Lac-Hydrin daily to dry areas Thank you for allowing me to participate in the care of this patient. Will follow with you, please notify medical provider with any changes in condition or concerns.
--- NOTE | 2025-08-05 14:13 | HO.PSYCHPN ---
Subjective Subjective Date of Service: 08/05/25 Reason For Visit: SI Subjective Notes: Conditional Voluntary Interim History: Active on unit. social with peers. attending groups. Patient reports feeling depressed today; pt stated, I'm tired of living how I'm living. I want to finish college and start on medications for my mood . Patient reports he is wanting to get a diagnosis for social security and help with housing ; pt was educated that social work does not help with housing while on the unit. He denies SI/HI/VH/AH. Patient reports he is interested in referrals to outpatient psychiatric providers; marriage and family social worker aware. Continue tx plan. Medication Compliance: Yes Side effects from medications: No Attending Groups: Yes Diagnostics Vital Signs (24Hr): Vital Signs - 24 hr 08/04/25 15:00 08/04/25 20:00 08/04/25 20:30 Temperature 97.6 F 98.7 F Pulse Rate 59 68 Respiratory Rate 18 18 Blood Pressure 138/91 H 139/88 139/88 Pulse Oximetry 99 97 Oxygen Delivery Method Room Air Room Air 08/05/25 08:00 Temperature 98.1 F Pulse Rate 60 Respiratory Rate 18 Blood Pressure 137/82 Pulse Oximetry 97 Oxygen Delivery Method Room Air BMI result Body Mass Index 33.0 Labs 08/03/25 08:49 08/05/25 07:28 Labs: Laboratory Results - last 48 hr 08/05/25 07:28 Sodium 143 Potassium 3.6 Chloride 105 Carbon Dioxide 29 Anion Gap 13 BUN 23 H Creatinine 0.81 Estim Creat Clear Calc 129.9 Estimated GFR > 60 Random Glucose 123 H Estimat Average Glucose 108 Hemoglobin A1c % 5.4 Calcium 9.6 Total Bilirubin 0.6 AST 26 ALT 28 Alkaline Phosphatase 62 Total Protein 7.2 Albumin 4.8 Triglycerides 240 H Cholesterol 196 LDL Cholesterol, Calc 100 H HDL Cholesterol 48 Imaging Radiology Impressions: ITS Impressions Chest X-Ray 08/03/25 08:56 IMPRESSION: No active pulmonary disease. Normal chest. Electronically signed by: Sal Souza MD 08/03/2025 09:12 AM [facility] Medications Medications Current Medications Acetaminophen (Acetaminophen 325 Mg Tablet) 650 mg PO Q6H PRN PRN Reason: Headache/Pain, Scale 1-10 Al Hydroxide/Mg Hydroxide (Magnesium Hydrox/Alum Hydrox 30 Ml Oral.Susp) 30 ml PO Q6H PRN PRN Reason: Heartburn/Nausea Albuterol Sulfate (Albuterol Sulfate (0.083%) 2.5 Mg/3 Ml Vial.Neb) 2.5 mg INHALE Q4H PRN PRN Reason: Shortness of Breath/Wheezing Last Admin: 08/04/25 07:30 Dose: 2.5 mg Hydroxyzine HCl (Hydroxyzine Hcl 25 Mg Tablet) 25 mg PO Q6H PRN PRN Reason: mild anxiety Last Admin: 08/05/25 10:48 Dose: 25 mg [place] Carbonate ([place] Carbonate Er 300 Mg Tablet.Er) 300 mg PO BID ELA Last Admin: 08/05/25 09:20 Dose: 300 mg Magnesium Hydroxide (Milk Of Magnesia 30 Ml Oral.Susp) 30 ml PO DAILY PRN PRN Reason: Constipation Melatonin (Melatonin 3 Mg Tablet) 6 mg PO BEDTIME ELA Last Admin: 08/04/25 20:29 Dose: 6 mg Nicotine (Nicotine 21 Mg Patch.Td24) 21 mg TRANSDERMA DAILY [facility] Last Admin: 08/05/25 09:18 Dose: Not Given Nicotine Polacrilex (Nicotine Polacrilex 2 Mg Gum) 4 mg BUCCAL Q2H PRN PRN Reason: Nicotine Cravings Last Admin: 08/05/25 09:21 Dose: 4 mg Olanzapine (Olanzapine 5 Mg Tablet) 5 mg PO Q4H PRN PRN Reason: agitation/psychosis Last Admin: 08/05/25 11:46 Dose: 5 mg Prazosin HCl (Prazosin Hcl 1 Mg Capsule) 1 mg PO BEDTIME ELA; Protocol Last Admin: 08/04/25 20:30 Dose: 1 mg Prednisone (Prednisone 20 Mg Tablet) 40 mg PO DAILY ELA Stop: 08/06/25 09:00 Last Admin: 08/05/25 09:21 Dose: 40 mg Quetiapine Fumarate (Quetiapine Fumarate 50 Mg Tablet) 50 mg PO BEDTIME PRN PRN Reason: Insomnia Quetiapine Fumarate (Quetiapine Fumarate 100 Mg Tablet) 100 mg PO BEDTIME ELA Last Admin: 08/04/25 20:29 Dose: 100 mg Quetiapine Fumarate (Quetiapine Fumarate 25 Mg Tablet) 25 mg PO BID PRN PRN Reason: severe anxiety/agitation Last Admin: 08/05/25 09:20 Dose: 25 mg Triamcinolone Acetonide (Triamcinolone Acet 0.5 % Oint 15 Gm Tube) 1 appl TOPICAL BID PRN PRN Reason: itching Last Admin: 08/04/25 11:47 Dose: 1 appl Allergies Allergies Allergy/AdvReac Type Severity Reaction Status Date / Time shrimp (SHRIMP) Allergy Unknown SWELLING, Verified 08/03/25 08:46 SOB CHOCOLATE Allergy Unknown GAS/BLOATIN Uncoded 08/03/25 08:46 G Assessment & Plan Assessment & Plan (1) Bipolar disorder, unspecified: Status: Acute Code(s): F31.9 - Bipolar disorder, unspecified (2) PTSD (post-traumatic stress disorder): Status: Acute Code(s): F43.10 - Post-traumatic stress disorder, unspecified Plan patient is a 35 year old single, male with hx of Seizure, asthma, eczema, bipolar, PTSD , BIBA called himself, reporting shortness of breath/ coughing/ wheezing for three days. Noted ot have hx of severe persistent asthma and ran out of albuterol nebulizer tx/ inhaler. Also reporting skin itching and eczema, which he states happens often with asthma flares. Additionally reported worsening. depression, informing ED admitting provider that he wants his life ?to just end? and goes on to report several ways to harm himself/ end his life including use of knives or jumping out of the fifth floor window of his mother?s apartment. Among precipitants is that he is not able to stay at his mother?s house, sleeping outside in the cold, no longer receiving social security benefits, has no income. Reports a hx of being prescribed depakote in the past, but has not taken it for several years. He is not known to the CARE team/ behavioral health. Formulation/clinical reasoning: Homeless, no outpatient providers, not currently prescribed medications even though having history of bipolar, PTSD, ADHD, seizure disorder, eczema, asthma. Increase in depression anxiety, the increase in mood swings, poor sleep, with SI. Patient will be benefit in restrictive environment for his own safety, medication management, and refer patient to outpatient psychiatric services as aftercare. Plan: Patient on 15 minute checks for safety. Admitted to [facility]. CV. Work with treatment team to do collateral. No current outpatient providers. Diagnostic and discharge planning. Reports he has seizure history with last seizure was 3 months ago. However, not currently on medication. 08/04: Albuterol sulfate q.4 hours PRNs for asthma Med melatonin 6 mg at bedtime for insomnia Prazosin 1 mg at bedtime for PTSD Seroquel 100 mg at bedtime for sleep/mood. With a repeat 50 mg for persistent insomnia Seroquel 25 mg b.i.d. PRNs for severe anxiety/agitation. Prednisone 40 mg daily from 08/04to 08/06. Cream for eczema PRNs. [place] carbonate ER 300 b.i.d. for mood. Discussed with patient regarding indication/side effects, blood work. Monitor for kidneys/thyroid functions. Patient was educated to avoid NSAIDs. We will check level in 5 days. 08/05: Active on unit. social with peers. attending groups. Patient reports feeling depressed today; pt stated, I'm tired of living how I'm living. I want to finish college and start on medications for my mood . Patient reports he is wanting to get a diagnosis for social security and help with housing ; pt was educated that social work does not help with housing while on the unit. He denies SI/HI/VH/AH. Patient reports he is interested in referrals to outpatient psychiatric providers; marriage and family social worker aware. Continue tx plan. Patient educated on: diagnosis, medication risk/benefits and therapeutic strategies Reason for continued inpatient stay Substantial Risk for: med/psych decompensation Time Spent With Patient Time: Total time managing care of this patient today __20__ minutes.
[2025-08-05] MEDS: Albuterol Sulfate 90 MCG 8 GM INHALER 2 PUFF INHALE (18:06)
[2025-08-05 19:50] VITALS: BP 120/74; PULSE 60; RESP 16; TEMP 36.4; O2SAT 96
[2025-08-05 21:38] VITALS: BP 145/88
[2025-08-06] MEDS: Fluticasone/Vilanterol 200/25 BLST.W.DEV 1 PUFF INHALE (09:00)
[2025-08-06 12:28] VITALS: BP 139/85; PULSE 65; RESP 20; TEMP 37.2; O2SAT 97
--- NOTE | 2025-08-06 13:19 | P.PNPSI_ITS ---
Subjective Subjective Date of Service: 08/06/25 Reason For Visit: SI Subjective Notes: Conditional Voluntary Interim History: Active on unit. social with peers. observed laughing and joking with peers. Patient reports feeling sad because I miss my dog ; denies SI/HI/VH/AH. Demanding Seroquel PRN; he reports Zyprexa and Hydoxyzine are not helpful. Added Seroquel 25mg PO BID PRN. [place] changed to [place] ER 600mg PO bedtime. Medication Compliance: Yes Side effects from medications: No Attending Groups: Yes Mental Status Exam Mental Status Exam Narrative: Pt is alert and oriented; behavior is cooperative and calm, laughing and joking with peers; dressed in casual attire; mood is described as sad d/t missing his dog ; eye contact appropriate; Speech is normal rate, volume and not pressured; thought process is organized; Thought content is on tx; denies SI/HI/VH/AH. Diagnostics Vital Signs (24Hr): Vital Signs - 24 hr 08/05/25 19:50 08/05/25 21:38 08/06/25 12:28 Temperature 97.5 F 98.9 F Pulse Rate 60 65 Respiratory Rate 16 20 Blood Pressure 120/74 145/88 H 139/85 Pulse Oximetry 96 97 Oxygen Delivery Method Room Air Room Air BMI result Body Mass Index 33.0 Labs 08/03/25 08:49 08/05/25 07:28 Labs: Laboratory Results - last 48 hr 08/05/25 07:28 Sodium 143 Potassium 3.6 Chloride 105 Carbon Dioxide 29 Anion Gap 13 BUN 23 H Creatinine 0.81 Estim Creat Clear Calc 129.9 Estimated GFR > 60 Random Glucose 123 H Estimat Average Glucose 108 Hemoglobin A1c % 5.4 Calcium 9.6 Total Bilirubin 0.6 AST 26 ALT 28 Alkaline Phosphatase 62 Total Protein 7.2 Albumin 4.8 Triglycerides 240 H Cholesterol 196 LDL Cholesterol, Calc 100 H HDL Cholesterol 48 Imaging Radiology Impressions: ITS Impressions Chest X-Ray 08/03/25 08:56 IMPRESSION: No active pulmonary disease. Normal chest. Electronically signed by: Sal Souza MD 08/03/2025 09:12 AM [facility] Medications Medications Current Medications Acetaminophen (Acetaminophen 325 Mg Tablet) 650 mg PO Q6H PRN PRN Reason: Headache/Pain, Scale 1-10 Last Admin: 08/06/25 09:26 Dose: 650 mg Al Hydroxide/Mg Hydroxide (Magnesium Hydrox/Alum Hydrox 30 Ml Oral.Susp) 30 ml PO Q6H PRN PRN Reason: Heartburn/Nausea Albuterol Sulfate (Albuterol Sulfate (0.083%) 2.5 Mg/3 Ml Vial.Neb) 2.5 mg INHALE Q4H PRN PRN Reason: Shortness of Breath/Wheezing Last Admin: 08/04/25 07:30 Dose: 2.5 mg Albuterol Sulfate (Albuterol Sulfate 90 Mcg 8 Gm Inhaler) 2 puff INHALE RQ6H PRN PRN Reason: Shortness of Breath/Wheezing Last Admin: 08/05/25 18:06 Dose: 2 puff Fluticasone/Vilanterol (Fluticasone/Vilanterol 200/25 Blst.W.Dev) 1 puff INHALE RDAILY ELA Last Admin: 08/06/25 09:00 Dose: 1 puff Lactic Acid (Ammonium Lactate 12 % Cream 140 Gm Tube) 1 appl TOPICAL DAILY ELA; Protocol Last Admin: 08/06/25 09:01 Dose: Not Given [place] Carbonate ([place] Carbonate Er 300 Mg Tablet.Er) 600 mg PO BEDTIME ELA Magnesium Hydroxide (Milk Of Magnesia 30 Ml Oral.Susp) 30 ml PO DAILY PRN PRN Reason: Constipation Montelukast Sodium (Montelukast Sodium 10 Mg Tablet) 10 mg PO BEDTIME ELA Last Admin: 08/05/25 21:36 Dose: 10 mg Nicotine Polacrilex (Nicotine Polacrilex 2 Mg Gum) 4 mg BUCCAL Q2H PRN PRN Reason: Nicotine Cravings Last Admin: 08/05/25 09:21 Dose: 4 mg Olanzapine (Olanzapine 5 Mg Tablet) 5 mg PO Q4H PRN PRN Reason: agitation/psychosis Last Admin: 08/06/25 09:26 Dose: 5 mg Prazosin HCl (Prazosin Hcl 1 Mg Capsule) 1 mg PO BEDTIME ELA; Protocol Last Admin: 08/05/25 21:38 Dose: 1 mg Prednisone (Prednisone 20 Mg Tablet) 40 mg PO DAILY ELA Stop: 08/09/25 08:59 Last Admin: 08/06/25 09:12 Dose: Not Given Quetiapine Fumarate (Quetiapine Fumarate 100 Mg Tablet) 100 mg PO BEDTIME ELA Last Admin: 08/05/25 21:35 Dose: 100 mg Quetiapine Fumarate (Quetiapine Fumarate 50 Mg Tablet) 50 mg PO BID PRN PRN Reason: Anxiety Triamcinolone Acetonide (Triamcinolone Acet 0.5 % Oint 15 Gm Tube) 1 appl TOPICAL BID PRN PRN Reason: itching Last Admin: 08/04/25 11:47 Dose: 1 appl Triamcinolone Acetonide (Triamcinolone Acet 0.1 % Cream 15 Gm Tube) 1 appl TOPICAL BID ELA; Protocol Last Admin: 08/06/25 09:05 Dose: Not Given Allergies Allergies Allergy/AdvReac Type Severity Reaction Status Date / Time shrimp (SHRIMP) Allergy Unknown SWELLING, Verified 08/03/25 08:46 SOB CHOCOLATE Allergy Unknown GAS/BLOATIN Uncoded 08/03/25 08:46 G Assessment & Plan Assessment & Plan (1) Bipolar disorder, unspecified: Status: Acute Code(s): F31.9 - Bipolar disorder, unspecified (2) PTSD (post-traumatic stress disorder): Status: Acute Code(s): F43.10 - Post-traumatic stress disorder, unspecified Plan patient is a 35 year old single, male with hx of Seizure, asthma, eczema, bipolar, PTSD , BIBA called himself, reporting shortness of breath/ coughing/ wheezing for three days. Noted ot have hx of severe persistent asthma and ran out of albuterol nebulizer tx/ inhaler. Also reporting skin itching and eczema, which he states happens often with asthma flares. Additionally reported worsening. depression, informing ED admitting provider that he wants his life ?to just end? and goes on to report several ways to harm himself/ end his life including use of knives or jumping out of the fifth floor window of his mother?s apartment. Among precipitants is that he is not able to stay at his mother?s house, sleeping outside in the cold, no longer receiving social security benefits, has no income. Reports a hx of being prescribed depakote in the past, but has not taken it for several years. He is not known to the CARE team/ behavioral health. Formulation/clinical reasoning: Homeless, no outpatient providers, not currently prescribed medications even though having history of bipolar, PTSD, ADHD, seizure disorder, eczema, asthma. Increase in depression anxiety, the increase in mood swings, poor sleep, with SI. Patient will be benefit in restrictive environment for his own safety, medication management, and refer patient to outpatient psychiatric services as aftercare. Plan: Patient on 15 minute checks for safety. Admitted to M3. CV. Work with treatment team to do collateral. No current outpatient providers. Diagnostic and discharge planning. Reports he has seizure history with last seizure was 3 months ago. However, not currently on medication. 08/04: Albuterol sulfate q.4 hours PRNs for asthma Med melatonin 6 mg at bedtime for insomnia Prazosin 1 mg at bedtime for PTSD Seroquel 100 mg at bedtime for sleep/mood. With a repeat 50 mg for persistent insomnia Seroquel 25 mg b.i.d. PRNs for severe anxiety/agitation. Prednisone 40 mg daily from 08/04to 08/06. Cream for eczema PRNs. [place] carbonate ER 300 b.i.d. for mood. Discussed with patient regarding indication/side effects, blood work. Monitor for kidneys/thyroid functions. Patient was educated to avoid NSAIDs. We will check level in 5 days. 08/05: Active on unit. social with peers. attending groups. Patient reports feeling depressed today; pt stated, I'm tired of living how I'm living. I want to finish college and start on medications for my mood . Patient reports he is wanting to get a diagnosis for social security and help with housing ; pt was educated that social work does not help with housing while on the unit. He denies SI/HI/VH/AH. Patient reports he is interested in referrals to outpatient psychiatric providers; nephrology social worker aware. Continue tx plan. 08/06: Active on unit. social with peers. observed laughing and joking with peers. Patient reports feeling sad because I miss my dog ; denies SI/HI/VH/AH. Demanding Seroquel PRN; he reports Zyprexa and Hydoxyzine are not helpful. Added Seroquel 25mg PO BID PRN. [place] changed to [place] ER 600mg PO bedtime. Patient educated on: diagnosis and medication risk/benefits Reason for continued inpatient stay Substantial Risk for: med/psych decompensation Time Spent With Patient Time: Total time managing care of this patient today _20___ minutes.
[2025-08-06 20:00] VITALS: BP 143/88; PULSE 66; RESP 16; TEMP 36.7; O2SAT 97
[2025-08-06] MEDS: Triamcinolone Acet 0.1 % Cream 15 GM TUBE 1 APPL TOPICAL (20:17)
[2025-08-07 08:00] VITALS: BP 158/86; PULSE 62; RESP 14; TEMP 33.1; O2SAT 99
[2025-08-07] MEDS: Fluticasone/Vilanterol 200/25 BLST.W.DEV 1 PUFF INHALE (09:27)
[2025-08-07] MEDS: Ammonium Lactate 12 % Cream 140 GM TUBE 1 APPL TOPICAL (09:28)
[2025-08-07] MEDS: Triamcinolone Acet 0.1 % Cream 15 GM TUBE 1 APPL TOPICAL ×2 (09:28→20:05)
--- NOTE | 2025-08-07 12:11 | P.PNPSI_ITS ---
Subjective Subjective Date of Service: 08/07/25 Reason For Visit: SI Subjective Notes: Conditional Voluntary Interim History: Active on unit. social with peers. Patient reports feeling irritable believes it is from prednisone. Per nursing, pt c/o restless legs, started on propranolol 10mg PO BID; pt aware. Patient reports he believes the medications are working because I'm feeling a lot better . denies SI/HI/VH/AH He reports sleeping well. Benitez level to be drawn on 08/10/25. Medication Compliance: Yes Side effects from medications: No Attending Groups: Yes Mental Status Exam Mental Status Exam Narrative: Pt is alert and oriented; behavior is cooperative and calm; dressed in casual attire; mood is described as better ; eye contact appropriate; Speech is normal rate, volume and not pressured; thought process is organized; Thought content is on tx; denies SI/HI/VH/AH. Diagnostics Vital Signs (24Hr): Vital Signs - 24 hr 08/06/25 12:28 08/06/25 20:00 08/07/25 08:00 Temperature 98.9 F 98.1 F 91.6 F L Pulse Rate 65 66 62 Respiratory Rate 20 16 14 Blood Pressure 139/85 143/88 H 158/86 H Pulse Oximetry 97 97 99 Oxygen Delivery Method Room Air Room Air Room Air BMI result Body Mass Index 33.0 Labs 08/03/25 08:49 08/05/25 07:28 Imaging Radiology Impressions: ITS Impressions Chest X-Ray 08/03/25 08:56 IMPRESSION: No active pulmonary disease. Normal chest. Electronically signed by: Sal Souza MD 08/03/2025 09:12 AM [facility] [place] Medications Medications Current Medications Acetaminophen (Acetaminophen 325 Mg Tablet) 650 mg PO Q6H PRN PRN Reason: Headache/Pain, Scale 1-10 Last Admin: 08/07/25 09:28 Dose: 650 mg Al Hydroxide/Mg Hydroxide (Magnesium Hydrox/Alum Hydrox 30 Ml Oral.Susp) 30 ml PO Q6H PRN PRN Reason: Heartburn/Nausea Albuterol Sulfate (Albuterol Sulfate (0.083%) 2.5 Mg/3 Ml Vial.Neb) 2.5 mg INHALE Q4H PRN PRN Reason: Shortness of Breath/Wheezing Last Admin: 08/04/25 07:30 Dose: 2.5 mg Albuterol Sulfate (Albuterol Sulfate 90 Mcg 8 Gm Inhaler) 2 puff INHALE RQ6H PRN PRN Reason: Shortness of Breath/Wheezing Last Admin: 08/05/25 18:06 Dose: 2 puff Fluticasone/Vilanterol (Fluticasone/Vilanterol 200/25 Blst.W.Dev) 1 puff INHALE RDAILY ELA Last Admin: 08/07/25 09:27 Dose: 1 puff Lactic Acid (Ammonium Lactate 12 % Cream 140 Gm Tube) 1 appl TOPICAL DAILY ELA; Protocol Last Admin: 08/07/25 09:28 Dose: 1 appl [place] Carbonate ([place] Carbonate Er 300 Mg Tablet.Er) 600 mg PO BEDTIME ELA Last Admin: 08/06/25 20:15 Dose: 600 mg Magnesium Hydroxide (Milk Of Magnesia 30 Ml Oral.Susp) 30 ml PO DAILY PRN PRN Reason: Constipation Montelukast Sodium (Montelukast Sodium 10 Mg Tablet) 10 mg PO BEDTIME ELA Last Admin: 08/06/25 20:15 Dose: 10 mg Nicotine Polacrilex (Nicotine Polacrilex 2 Mg Gum) 4 mg BUCCAL Q2H PRN PRN Reason: Nicotine Cravings Last Admin: 08/06/25 21:46 Dose: 4 mg Olanzapine (Olanzapine 5 Mg Tablet) 5 mg PO Q4H PRN PRN Reason: agitation/psychosis Last Admin: 08/06/25 21:46 Dose: 5 mg Prazosin HCl (Prazosin Hcl 1 Mg Capsule) 1 mg PO BEDTIME ELA; Protocol Last Admin: 08/06/25 20:15 Dose: 1 mg Prednisone (Prednisone 20 Mg Tablet) 40 mg PO DAILY ELA Stop: 08/09/25 08:59 Last Admin: 08/07/25 09:29 Dose: 40 mg Quetiapine Fumarate (Quetiapine Fumarate 100 Mg Tablet) 100 mg PO BEDTIME ELA Last Admin: 08/06/25 20:15 Dose: 100 mg Quetiapine Fumarate (Quetiapine Fumarate 50 Mg Tablet) 50 mg PO BID PRN PRN Reason: Anxiety Last Admin: 08/07/25 10:06 Dose: 50 mg Triamcinolone Acetonide (Triamcinolone Acet 0.5 % Oint 15 Gm Tube) 1 appl TOPICAL BID PRN PRN Reason: itching Last Admin: 08/04/25 11:47 Dose: 1 appl Triamcinolone Acetonide (Triamcinolone Acet 0.1 % Cream 15 Gm Tube) 1 appl TOPICAL BID ELA; Protocol Last Admin: 08/07/25 09:28 Dose: 1 appl Allergies Allergies Allergy/AdvReac Type Severity Reaction Status Date / Time shrimp (SHRIMP) Allergy Unknown SWELLING, Verified 08/03/25 08:46 SOB CHOCOLATE Allergy Unknown GAS/BLOATIN Uncoded 08/03/25 08:46 G Assessment & Plan Assessment & Plan (1) Bipolar disorder, unspecified: Status: Acute Code(s): F31.9 - Bipolar disorder, unspecified (2) PTSD (post-traumatic stress disorder): Status: Acute Code(s): F43.10 - Post-traumatic stress disorder, unspecified Plan patient is a 35 year old single, male with hx of Seizure, asthma, eczema, bipolar, PTSD , BIBA called himself, reporting shortness of breath/ coughing/ wheezing for three days. Noted ot have hx of severe persistent asthma and ran out of albuterol nebulizer tx/ inhaler. Also reporting skin itching and eczema, which he states happens often with asthma flares. Additionally reported worsening. depression, informing ED admitting provider that he wants his life ?to just end? and goes on to report several ways to harm himself/ end his life including use of knives or jumping out of the fifth floor window of his mother?s apartment. Among precipitants is that he is not able to stay at his mother?s house, sleeping outside in the cold, no longer receiving social security benefits, has no income. Reports a hx of being prescribed depakote in the past, but has not taken it for several years. He is not known to the CARE team/ behavioral health. Formulation/clinical reasoning: Homeless, no outpatient providers, not currently prescribed medications even though having history of bipolar, PTSD, ADHD, seizure disorder, eczema, asthma. Increase in depression anxiety, the increase in mood swings, poor sleep, with SI. Patient will be benefit in restrictive environment for his own safety, medication management, and refer patient to outpatient psychiatric services as aftercare. Plan: Patient on 15 minute checks for safety. Admitted to M3. CV. Work with treatment team to do collateral. No current outpatient providers. Diagnostic and discharge planning. Reports he has seizure history with last seizure was 3 months ago. However, not currently on medication. 08/04: Albuterol sulfate q.4 hours PRNs for asthma Med melatonin 6 mg at bedtime for insomnia Prazosin 1 mg at bedtime for PTSD Seroquel 100 mg at bedtime for sleep/mood. With a repeat 50 mg for persistent insomnia Seroquel 25 mg b.i.d. PRNs for severe anxiety/agitation. Prednisone 40 mg daily from 08/04to 08/06. Cream for eczema PRNs. [place] carbonate ER 300 b.i.d. for mood. Discussed with patient regarding indication/side effects, blood work. Monitor for kidneys/thyroid functions. Patient was educated to avoid NSAIDs. We will check level in 5 days. 08/05: Active on unit. social with peers. attending groups. Patient reports feeling depressed today; pt stated, I'm tired of living how I'm living. I want to finish college and start on medications for my mood . Patient reports he is wanting to get a diagnosis for social security and help with housing ; pt was educated that social work does not help with housing while on the unit. He denies SI/HI/VH/AH. Patient reports he is interested in referrals to outpatient psychiatric providers; social security assessor aware. Continue tx plan. 08/06: Active on unit. social with peers. observed laughing and joking with peers. Patient reports feeling sad because I miss my dog ; denies SI/HI/VH/AH. Demanding Seroquel PRN; he reports Zyprexa and Hydoxyzine are not helpful. Added Seroquel 25mg PO BID PRN. Benitez changed to [place] ER 600mg PO bedtime. 08/07: Active on unit. social with peers. Patient reports feeling irritable believes it is from prednisone. Per nursing, pt c/o restless legs, started on propranolol 10mg PO BID; pt aware. Patient reports he believes the medications are working because I'm feeling a lot better . denies SI/HI/VH/AH He reports sleeping well. Benitez level to be drawn on 08/10/25. Patient educated on: diagnosis, medication risk/benefits and therapeutic strategies Reason for continued inpatient stay Substantial Risk for: med/psych decompensation Time Spent With Patient Time: Total time managing care of this patient today _20___ minutes.
[2025-08-07 12:49] VITALS: BP 148/78; PULSE 77
[2025-08-07] MEDS: Albuterol Sulfate 90 MCG 8 GM INHALER 2 PUFF INHALE (15:12)
[2025-08-07 18:58] VITALS: PULSE 75; RESP 14; O2SAT 94
[2025-08-07] MEDS: Albuterol Sulfate (0.083%) 2.5 MG/3 ML VIAL.NEB INHALE (18:58)
[2025-08-07 20:00] VITALS: BP 141/84; PULSE 78; RESP 18; TEMP 36.4; O2SAT 96
[2025-08-07 20:03] VITALS: BP 141/84
[2025-08-07 20:04] VITALS: BP 141/84; PULSE 78
[2025-08-07] MEDS: Magnesium Hydrox/Alum Hydrox 30 ML ORAL.SUSP PO (22:19)
[2025-08-08] VITALS (7 sets, daily range): BP systolic 144–177; BP diastolic 85–97; PULSE 57–92; RESP 16; TEMP 36.3–36.9; O2SAT 96–99
[2025-08-08] MEDS: Fluticasone/Vilanterol 200/25 BLST.W.DEV 1 PUFF INHALE (08:54)
[2025-08-08] MEDS: Magnesium Hydrox/Alum Hydrox 30 ML ORAL.SUSP PO ×2 (11:34→22:40)
--- NOTE | 2025-08-08 12:21 | HO.PSYCHPN ---
Subjective Subjective Date of Service: 08/08/25 Reason For Visit: SI Subjective Notes: Conditional Voluntary Interim History: Active on unit. social with peers. attending groups. Patient reports feeling better today; future oriented. He reports sleeping well last night. denies SI/HI/VH/AH. denies any issues at this time. [place] level to be drawn tomorrow. Plan to discharge tomorrow; pt aware. Medication Compliance: Yes Side effects from medications: No Attending Groups: Yes Mental Status Exam Mental Status Exam Narrative: Pt is alert and oriented; behavior is cooperative and calm; dressed in casual attire; mood is described as better ; eye contact appropriate; Speech is normal rate, volume and not pressured; thought process is organized; Thought content is on tx/discharge; denies SI/HI/VH/AH. Diagnostics Vital Signs (24Hr): Vital Signs - 24 hr 08/07/25 12:49 08/07/25 18:58 08/07/25 20:00 Temperature 97.6 F Pulse Rate 77 75 78 Respiratory Rate 14 18 Blood Pressure 148/78 H 141/84 H Pulse Oximetry 96 Oxygen Delivery Method Room Air 08/07/25 20:03 08/07/25 20:04 08/08/25 08:00 Temperature 97.3 F Pulse Rate 78 57 Respiratory Rate 16 Blood Pressure 141/84 H 141/84 H 177/97 H Pulse Oximetry 99 Oxygen Delivery Method Room Air 08/08/25 08:46 08/08/25 10:20 Temperature Pulse Rate 57 67 Respiratory Rate Blood Pressure 177/97 H 173/97 H Pulse Oximetry Oxygen Delivery Method BMI result Body Mass Index 33.0 Labs 08/03/25 08:49 08/05/25 07:28 Imaging Radiology Impressions: ITS Impressions Chest X-Ray 08/03/25 08:56 IMPRESSION: No active pulmonary disease. Normal chest. Electronically signed by: Sal Souza MD 08/03/2025 09:12 AM [facility] Medications Medications Current Medications Acetaminophen (Acetaminophen 325 Mg Tablet) 650 mg PO Q6H PRN PRN Reason: Headache/Pain, Scale 1-10 Last Admin: 08/07/25 09:28 Dose: 650 mg Al Hydroxide/Mg Hydroxide (Magnesium Hydrox/Alum Hydrox 30 Ml Oral.Susp) 30 ml PO Q6H PRN PRN Reason: Heartburn/Nausea Last Admin: 12/22/25 11:34 Dose: 30 ml Albuterol Sulfate (Albuterol Sulfate (0.083%) 2.5 Mg/3 Ml Vial.Neb) 2.5 mg INHALE Q4H PRN PRN Reason: Shortness of Breath/Wheezing Last Admin: 08/07/25 18:58 Dose: 2.5 mg Albuterol Sulfate (Albuterol Sulfate 90 Mcg 8 Gm Inhaler) 2 puff INHALE RQ6H PRN PRN Reason: Shortness of Breath/Wheezing Last Admin: 08/07/25 15:12 Dose: 2 puff Fluticasone/Vilanterol (Fluticasone/Vilanterol 200/25 Blst.W.Dev) 1 puff INHALE RDAILY ELA Last Admin: 08/08/25 08:54 Dose: 1 puff Lactic Acid (Ammonium Lactate 12 % Cream 140 Gm Tube) 1 appl TOPICAL DAILY ELA; Protocol Last Admin: 08/08/25 08:56 Dose: Not Given [place] Carbonate ([place] Carbonate Er 300 Mg Tablet.Er) 600 mg PO BEDTIME ELA Last Admin: 08/07/25 20:04 Dose: 600 mg Magnesium Hydroxide (Milk Of Magnesia 30 Ml Oral.Susp) 30 ml PO DAILY PRN PRN Reason: Constipation Montelukast Sodium (Montelukast Sodium 10 Mg Tablet) 10 mg PO BEDTIME ELA Last Admin: 08/07/25 20:03 Dose: 10 mg Nicotine Polacrilex (Nicotine Polacrilex 2 Mg Gum) 4 mg BUCCAL Q2H PRN PRN Reason: Nicotine Cravings Last Admin: 08/07/25 14:05 Dose: 4 mg Olanzapine (Olanzapine 5 Mg Tablet) 5 mg PO Q4H PRN PRN Reason: agitation/psychosis Last Admin: 08/07/25 15:10 Dose: 5 mg Prazosin HCl (Prazosin Hcl 1 Mg Capsule) 1 mg PO BEDTIME ELA; Protocol Last Admin: 08/07/25 20:03 Dose: 1 mg Prednisone (Prednisone 20 Mg Tablet) 40 mg PO DAILY ELA Stop: 08/09/25 08:59 Last Admin: 08/08/25 08:47 Dose: 40 mg Propranolol HCl (Propranolol Hcl 10 Mg Tablet) 10 mg PO BID ELA; Protocol Last Admin: 08/08/25 08:46 Dose: 10 mg Quetiapine Fumarate (Quetiapine Fumarate 100 Mg Tablet) 100 mg PO BEDTIME ELA Last Admin: 08/07/25 20:04 Dose: 100 mg Quetiapine Fumarate (Quetiapine Fumarate 50 Mg Tablet) 50 mg PO BID PRN PRN Reason: Anxiety Last Admin: 08/08/25 08:54 Dose: 50 mg Triamcinolone Acetonide (Triamcinolone Acet 0.5 % Oint 15 Gm Tube) 1 appl TOPICAL BID PRN PRN Reason: itching Last Admin: 08/04/25 11:47 Dose: 1 appl Triamcinolone Acetonide (Triamcinolone Acet 0.1 % Cream 15 Gm Tube) 1 appl TOPICAL BID ELA; Protocol Last Admin: 08/08/25 08:56 Dose: Not Given Allergies Allergies Allergy/AdvReac Type Severity Reaction Status Date / Time shrimp (SHRIMP) Allergy Unknown SWELLING, Verified 08/03/25 08:46 SOB CHOCOLATE Allergy Unknown GAS/BLOATIN Uncoded 08/03/25 08:46 G Assessment & Plan Assessment & Plan (1) Bipolar disorder, unspecified: Status: Acute Code(s): F31.9 - Bipolar disorder, unspecified (2) PTSD (post-traumatic stress disorder): Status: Acute Code(s): F43.10 - Post-traumatic stress disorder, unspecified Plan patient is a 35 year old single, male with hx of Seizure, asthma, eczema, bipolar, PTSD , BIBA called himself, reporting shortness of breath/ coughing/ wheezing for three days. Noted ot have hx of severe persistent asthma and ran out of albuterol nebulizer tx/ inhaler. Also reporting skin itching and eczema, which he states happens often with asthma flares. Additionally reported worsening. depression, informing ED admitting provider that he wants his life ?to just end? and goes on to report several ways to harm himself/ end his life including use of knives or jumping out of the fifth floor window of his mother?s apartment. Among precipitants is that he is not able to stay at his mother?s house, sleeping outside in the cold, no longer receiving social security benefits, has no income. Reports a hx of being prescribed depakote in the past, but has not taken it for several years. He is not known to the CARE team/ behavioral health. Formulation/clinical reasoning: Homeless, no outpatient providers, not currently prescribed medications even though having history of bipolar, PTSD, ADHD, seizure disorder, eczema, asthma. Increase in depression anxiety, the increase in mood swings, poor sleep, with SI. Patient will be benefit in restrictive environment for his own safety, medication management, and refer patient to outpatient psychiatric services as aftercare. Plan: Patient on 15 minute checks for safety. Admitted to [facility]. [facility]. Work with treatment team to do collateral. No current outpatient providers. Diagnostic and discharge planning. Reports he has seizure history with last seizure was 3 months ago. However, not currently on medication. 08/04: Albuterol sulfate q.4 hours PRNs for asthma Med melatonin 6 mg at bedtime for insomnia Prazosin 1 mg at bedtime for PTSD Seroquel 100 mg at bedtime for sleep/mood. With a repeat 50 mg for persistent insomnia Seroquel 25 mg b.i.d. PRNs for severe anxiety/agitation. Prednisone 40 mg daily from 08/04to 08/06. Cream for eczema PRNs. [place] carbonate ER 300 b.i.d. for mood. Discussed with patient regarding indication/side effects, blood work. Monitor for kidneys/thyroid functions. Patient was educated to avoid NSAIDs. We will check level in 5 days. 08/05: Active on unit. social with peers. attending groups. Patient reports feeling depressed today; pt stated, I'm tired of living how I'm living. I want to finish college and start on medications for my mood . Patient reports he is wanting to get a diagnosis for social security and help with housing ; pt was educated that social work does not help with housing while on the unit. He denies SI/HI/VH/AH. Patient reports he is interested in referrals to outpatient psychiatric providers; case management social worker aware. Continue tx plan. 08/06: Active on unit. social with peers. observed laughing and joking with peers. Patient reports feeling sad because I miss my dog ; denies SI/HI/VH/AH. Demanding Seroquel PRN; he reports Zyprexa and Hydoxyzine are not helpful. Added Seroquel 25mg PO BID PRN. [place] changed to [place] ER 600mg PO bedtime. 08/07: Active on unit. social with peers. Patient reports feeling irritable believes it is from prednisone. Per nursing, pt c/o restless legs, started on propranolol 10mg PO BID; pt aware. Patient reports he believes the medications are working because I'm feeling a lot better . denies SI/HI/VH/AH He reports sleeping well. [place] level to be drawn on 08/10/25. 08/08: Active on unit. social with peers. attending groups. Patient reports feeling better today; future oriented. He reports sleeping well last night. denies SI/HI/VH/AH. denies any issues at this time. [place] level to be drawn tomorrow. Plan to discharge tomorrow; pt aware Patient educated on: diagnosis and medication risk/benefits Reason for continued inpatient stay Substantial Risk for: stable for discharge Time Spent With Patient Time: Total time managing care of this patient today _20___ minutes.
[2025-08-08] MEDS: Albuterol Sulfate 90 MCG 8 GM INHALER 2 PUFF INHALE ×2 (12:53→20:24)
--- NOTE | 2025-08-08 13:12 | PM.EVENT ---
Event Note Date of Service: 08/08/25 Event Note: Patient's blood pressure is persistently elevated, we will add amlodipine, continue to follow and adjust as needed. Time Spent With Patient Time: Total time managing care of this patient today ____ minutes.
--- NOTE | 2025-08-08 15:30 | PC.NURSE ---
Pt requested HIV testing. Provider notified.
--- NOTE | 2025-08-08 18:58 | PC.NURSE ---
Pt reported I'm feeling really anxious and can't calm down, I think I'm clammy, I need my blood pressure checked. BP 144/94 HR 76, pt requested and received PRN Seroquel and Zyprexa.
[2025-08-08] MEDS: Triamcinolone Acet 0.1 % Cream 15 GM TUBE 1 APPL TOPICAL (20:25)
[2025-08-09 04:17] LABS: HIV Num 1 0.07 S/CO (0.00-0.99)
[2025-08-09] MEDS: Fluticasone/Vilanterol 200/25 BLST.W.DEV 1 PUFF INHALE (08:25)
[2025-08-09 08:28] VITALS: BP 152/88; PULSE 70; RESP 16; TEMP 36.9; O2SAT 97
[2025-08-09 08:30] LABS: Lithium 0.25 mmol/L (0.60-1.20)
[2025-08-09] MEDS: Albuterol Sulfate 90 MCG 8 GM INHALER 2 PUFF INHALE (08:32)
[2025-08-09 08:37] LABS: Anion Gap 12 (12-20); Blood Urea Nitrogen 24 mg/dL (9-16); Carbon Dioxide 28 mmol/L (22-29); Chloride 104 mmol/L (96-108); Creatinine Clr Calc Pharmacy 152.6; Estimated Glomerular Filt Rate > 60; Potassium 4.1 mmol/L (3.3-5.1); Sodium 140 mmol/L (135-145)
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
== END 2025-08-09 11:09 | disposition home or self-care (01) | DRG 753 ==
LOC: HO.ED 08-04 12:29 → HO.PADLT16 08-04 14:47
PROVIDERS: Physician Assistant; Admitting Provider Registered Nurse; Emergency Provider Emergency Medicine Emergency Medical Services; Responsible Provider Registered Nurse; Visit Provider Psychiatry & Neurology Psychiatry
DX: F31.9 Bipolar disorder, unspecified (principal); R45.851 Suicidal ideations; F17.210 Nicotine dependence, cigarettes, uncomplicated; F43.10 Post-traumatic stress disorder, unspecified; F90.9 Attention-deficit hyperactivity disorder, unspecified type; J45.40 Moderate persistent asthma, uncomplicated; L30.9 Dermatitis, unspecified; Z20.822 Contact with and (suspected) exposure to COVID-19; Z59.02 Unsheltered homelessness; Z71.6 Tobacco abuse counseling; Z79.51 Long term (current) use of inhaled steroids; Z79.899 Other long term (current) drug therapy
CPT/HCPCS: 36415; 71045; 80048; 80051; 80053; 80061; 80076; 80143; 80178; 80179; 80307; 81001; 82565; 82803; 83036; 83735; 84520; 85025; 87389; 87637; 93005; 94640; 99285; J2919; S9485

== ENCOUNTER → 2025-08-03 08:33 | Outpatient (BNV) | payer MEDICAID, SELFPAY | PROVIDERS: Emergency Provider Emergency Medicine Emergency Medical Services; Visit Provider Radiology Diagnostic Radiology | DX: J45.909 Unspecified asthma, uncomplicated (principal) | CPT/HCPCS: 71045 ==

== ENCOUNTER → 2025-08-03 11:33 | Outpatient (BNV) | payer MEDICAID, SELFPAY | PROVIDERS: Emergency Provider Emergency Medicine Emergency Medical Services; Visit Provider Internal Medicine Cardiovascular Disease | DX: I49.1 Atrial premature depolarization (principal) | CPT/HCPCS: 93010 ==

== ENCOUNTER → 2025-08-04 07:28 | Outpatient (BNV) | payer MEDICAID, SELFPAY | PROVIDERS: Emergency Provider Emergency Medicine Emergency Medical Services; Visit Provider Internal Medicine Cardiovascular Disease | DX: Z13.6 Encounter for screening for cardiovascular disorders (principal) | CPT/HCPCS: 93010 ==

== ENCOUNTER → 2025-08-04 12:09 | Outpatient (BNV) | payer OTHER, SELFPAY | PROVIDERS: Admitting Provider Registered Nurse; Emergency Provider Emergency Medicine Emergency Medical Services; Visit Provider Nurse Practitioner Psychiatric/Mental Health | DX: F31.4 Bipolar disorder, current episode depressed, severe, without psychotic features (principal); F90.9 Attention-deficit hyperactivity disorder, unspecified type; F43.11 Post-traumatic stress disorder, acute; R45.851 Suicidal ideations; J45.909 Unspecified asthma, uncomplicated; R56.9 Unspecified convulsions | CPT/HCPCS: 99232 ==

== ENCOUNTER → 2025-08-04 12:09 | Outpatient (BNV) | payer MEDICAID, SELFPAY | PROVIDERS: Admitting Provider Registered Nurse; Emergency Provider Emergency Medicine Emergency Medical Services; Visit Provider Nurse Practitioner Family | DX: J45.40 Moderate persistent asthma, uncomplicated (principal); L30.9 Dermatitis, unspecified | CPT/HCPCS: 99221; 99499 ==